=== PATIENT | male | born 1965 | race Caucasian/White ===

== ENCOUNTER 2024-11-13 08:50 | Outpatient (AMB) | payer OTHER, MEDICARE, MEDICAID, SELFPAY ==
--- NOTE | 2024-11-13 08:57 | A.OFFVIS_ITS ---
Vital Signs 11/13/24 09:00 Height 5 ft 5 in Weight 194 lb 0.108 oz BMI 32.3 BP 132/78 Blood Pressure Location Rt brachial Position Sitting Pulse 72 Pulse Source Pulse Oximeter Intake Visit Reasons: T2DM Intake Note: NEW Patient presents today to establish treatment for Type 2 Diabetes Mellitus: Last Diabetic eye exam was on: Has an appt on November Last Podiatry exam was on: Patient does not see a Outpatient Program Coordinator Most recent HbA1c: 7.2%, 09/16/2024 done at the PCP Random Glucose- 97 mg/dL, Today Dental Services Director Required: No Accompanied by: Self / Same As Patient Allergies No Known Allergies Allergy (Verified 11/13/24 08:58) HPI Comments Details: 59 year old male with diabetes presenting for consultation. Referred by DONNIE Medical history: hypertension, hyperlipidemia Diagnosed with diabetes around age 42 Last A1C 7.2% 09/16/24 Using one touch ultra2 -checking at least once daily fasting. 7 day average 155, 14 day average 166, 30 day average 170 Current medications: Glipizide xl 10 mg daily, metformin 1000mg twice daily Eye exam 12/04/2024 Does not see podiatry. Has podiatry appt Dec 05 Family history of diabetes: Aunt type 1. Maternal grandmother type 2 diabetes ROS CONSTITUTIONAL: Denies weight loss, fever and chills. HEENT: Denies changes in vision and hearing. RESPIRATORY: Denies SOB and cough. CV: Denies palpitations and CP GI: Denies abdominal pain, nausea, vomiting and diarrhea. : Nightime urination MSK: Denies new myalgia and joint pain. SKIN: Denies rash and pruritus. NEUROLOGICAL: Denies headache PSYCHIATRIC: Denies recent changes in mood. PHYSICAL EXAM: GENERAL: Alert and oriented x 3. NAD EYES: EOMI. Anicteric. HENT: Moist mucous membranes. No scleral icterus. No cervical lymphadenopathy. LUNGS: Clear to auscultation bilaterally. CARDIOVASCULAR: Regular rate and rhythm. No murmur. No JVD. ABDOMEN: Soft, non-tender +bs EXTREMITIES: No edema. Non-tender. SKIN: No rashes or lesions. Warm. NEUROLOGIC: No focal neurological deficits. CN II-XII grossly intact PSYCHIATRIC: Cooperative. Appropriate mood and affect Physical Exam Vital Signs: Last Vital Signs Pulse 72 11/13/24 09:00 BP 132/78 11/13/24 09:00 BMI result Body Mass Index 32.3 Results Reviewed Results Reviewed: Laboratory Last Values Glucose (Clinic) 97 mg/dL (60-115) 11/13/24 09:08 Assessment & Plan Assessment & Plan (1) Type 2 diabetes mellitus: Code(s): E11.9 - Type 2 diabetes mellitus without complications Category: Medical Qualifiers: Diabetes mellitus ad terminal makeup operator insulin use: without usp use Diabetes mellitus complication status: with hyperglycemia Qualified Code(s): E11.65 - Type 2 diabetes mellitus with hyperglycemia Plan: Discussed goal for fasting BG, A1C less than 7.0% Will increase glipizide from 10mg XL daily to 15mg XL daily Continue current metformin dosing Continue eye exams Upcoming pcp and podiatry appts per patient (2) Hypertension: Code(s): I10 - Essential (primary) hypertension Category: Medical Qualifiers: Hypertension type: primary hypertension Qualified Code(s): I10 - Essential (primary) hypertension Plan: well controlled on current medications Low salt diet. Efforts toward weight loss (3) Nocturia: Code(s): R35.1 - Nocturia Category: Medical Plan: start trial tamsulosin. Upcoming pcp Suspect may have HERO could consider sleep referral Medications: New glipizide ER 15 mg (3 x 5 mg) PO DAILY 270 tabs 3RF tamsulosin 0.4 mg PO BEDTIME 90 caps 3RF Coding Level of Care Code New Pt Level 4 (24336) Diagnoses Type 2 diabetes mellitus with hyperglycemia, without long-term current use of insulin E11.65 Diabetes mellitus usp insulin use: without usp use Diabetes mellitus complication status: with hyperglycemia Primary hypertension I10 Hypertension type: primary hypertension Nocturia R35.1 Time Spent (min) 50
[2024-11-13 09:00] VITALS: BP 132/78; PULSE 72; BMI 32.3
[2024-11-13 09:11] LABS: Glucose, Whole Blood 97 mg/dL (60-115)
== END 2024-11-13 09:37 | disposition home or self-care (01) ==
PROVIDERS: Visit Provider Internal Medicine
DX: E11.65 Type 2 diabetes mellitus with hyperglycemia (principal); I10 Essential (primary) hypertension; R35.1 Nocturia

== ENCOUNTER → 2024-11-13 08:50 | Outpatient (BNVA) | payer OTHER, MEDICARE, MEDICAID, SELFPAY | PROVIDERS: Visit Provider Internal Medicine | DX: E11.65 Type 2 diabetes mellitus with hyperglycemia (principal); I10 Essential (primary) hypertension; R35.1 Nocturia; Z79.84 Long term (current) use of oral hypoglycemic drugs | CPT/HCPCS: 82947 ==

== ENCOUNTER 2024-12-05 07:55 | Outpatient (REF) | payer MEDICARE, SELFPAY ==
--- OUTSIDE RECORDS SUMMARY | 2024-12-05 08:59 | XMS_ITS | Clinical Summary ---
Author Organization [address] Address [address] [place] [address] Phone Care Team Providers Care Tank Assembler Name Role Phone Kenny Osullivan MD Primary Care Provider [phone] Allergies No known active allergies Medications Medication [...] 1 (one) time each day. 06/25/2024 Active [employer] Ultra Test test strip USE TO TEST [...] mellitus), type 2, uncontrolled, with renal complications DEPARTMENT CHAIRPERSON (background diabetic retinopathy) 07/02/2014 Exotropia, left eye 07/02/2014 Glaucoma suspect of both eyes 07/02/2014 Left amblyopia 07/02/2014 Intellectual disability 10/02/2008 Essential hypertension, benign 04/19/2006 Pure hypercholesterolemia 04/19/2006 Encounters Date Type Department Care Team Description 11/04/2024 8:45 AM EST Office Visit Orthopedic Surgery [facility] [address] [place] [phone] John Sanders, DPM Dermatophytosis of nail (Primary Dx); Tinea pedis of both feet 10/25/2024 8:30 AM EST Office Visit Adult Medicine [address] [phone] Maine Johnston PA Routine history and physical examination of adult (Primary Dx); Essential hypertension, benign; Pure hypercholesterolemia; Diabetes mellitus due to underlying condition with stage 3 chronic kidney disease, without long-term current use of insulin, unspecified whether stage 3a or 3b CKD (CMS/HCC); Screening PSA (prostate specific antigen); Hyperlipidemia, unspecified hyperlipidemia type 09/13/2024 Telephone Adult Medicine [address] [phone] Kenny Osullivan MD Referral from Last 3 [...] for your loved ones. For example, children's author or elderly care for an older adult? [...] AM EDT Office Visit Orthopedic Surgery - [place] [address] [phone] John Sanders, DPM [address] [address] 04/25/2025 1:00 PM EDT Office Visit Adult Medicine [address] [phone] Kenny Osullivan MD [address] [place] [id number] Health Maintenance Due Date Last Done Comments [...] Urine Albumin Creatinine Ratio (08/28/2024) Pathologist [facility] Urine Albumin Creatinine Ratio abstracted Historical Provider MD [facility] E * Annual BMP Blood Test (08/28/2024) [facility] Annual BMP Blood Test abstracted Historical Provider MD [facility] E * (ABNORMAL) Hemoglobin A1c (08/28/2024) [facility] Hemoglobin A1C 7.2(A) 6.5 % Blood Venous blood specimen / Unknown Historical Provider LAB BLOOD ORDERAB LES * Lipid panel (08/28/2024) [facility] LDL/HDL Ratio 3 0 - 4 Triglycerides 59 0 - 150 mg/dL Cholesterol 159 0 - 200 mg/dL HDL 60 40 mg/dL LDL Cholesterol 88 0 - 100 mg/dL Blood Venous blood specimen / Unknown Historical Provider LAB BLOOD ORDERAB LES * Colonoscopy (08/01/2023) Pathologist [facility] Colonoscopy no interpretation , abstracted Anatomical Region Laterality Modality Other Historical Provider MD [facility] E * Hepatitis C Screening (02/17/2023) [facility] Hepatitis C Screening abstracted Historical Provider MD [facility] from Last 3 Months or Most Recently Relevant to Health Maintenance Care Teams Tank Assembler Relationship Specialty Start Date End Date Kenny Osullivan MD [address] [place] [id number] PCP - General 04/05/06
[2024-12-05 09:21] LABS: Hematocrit 41.8 % (42.0-52.0); Hemoglobin 14.3 g/dl (14.0-18.0); Mean Corpuscular HGB Conc 34.2 g/dl (31.0-36.0); Mean Corpuscular Hemoglobin 29.4 pg (27.0-33.0); Mean Corpuscular Volume 85.8 fL (80.0-98.0); Mean Platelet Volume 10.5 fL (9.4-12.4); Platelet Count 187 X10*3/uL (160-400); Red Blood Count 4.87 X10*6/uL (4.60-5.80)
[2024-12-05 09:51] LABS: Alanine Aminotransferase 27 U/L (0-40); Albumin Level 4.5 g/dL (3.5-5.0); Alkaline Phosphatase 54 U/L (39-117); Anion Gap 15 (12-20); Aspartate Amino Transferase 32 U/L (5-37); Bilirubin Total 0.7 mg/dL (0.0-1.0); Blood Urea Nitrogen 22 mg/dL (9-16); Calcium 9.1 mg/dL (8.4-10.2); Carbon Dioxide 27 mmol/L (22-29); Chloride 101 mmol/L (96-108); Cholesterol 156 mg/dL (<200); Estimated Glomerular Filt Rate > 60; Glucose Fasting 108 mg/dL (60-99); HDL Cholesterol 51 mg/dL (>40); LDL Cholesterol Calculated 92 mg/dL (<100); Potassium 4.6 mmol/L (3.3-5.1); Sodium 138 mmol/L (135-145); Total Protein 7.4 g/dL (6.5-8.0); Triglycerides 68 mg/dL (<150)
[2024-12-05 09:52] LABS: Creatinine Urine 108.28 mg/dL; Microalbum/Creatinine Ratio Ur 139.4 ug/mg cr (<30)
== END 2024-12-05 07:56 | disposition home or self-care (01) ==
LOC: HO.LAB 07:55
PROVIDERS: PCP Physician Assistant; Visit Provider Physician Assistant
DX: E11.22 Type 2 diabetes mellitus with diabetic chronic kidney disease (principal); I12.9 Hypertensive chronic kidney disease with stage 1 through stage 4 chronic kidney disease, or unspecified chronic kidney disease; N18.31 Chronic kidney disease, stage 3a; E11.65 Type 2 diabetes mellitus with hyperglycemia; R62.50 Unspecified lack of expected normal physiological development in childhood; R35.1 Nocturia; Z12.5 Encounter for screening for malignant neoplasm of prostate
CPT/HCPCS: 36415; 80053; 80061; 82043; 82570; 84153; 85027; 96127; 99202

== ENCOUNTER → 2024-12-05 07:55 | Outpatient (AMB) | payer MEDICARE, MEDICAID, SELFPAY ==
--- OUTSIDE RECORDS SUMMARY | 2024-12-05 07:58 | XMS_ITS | Clinical Summary ---
Author Organization [address] Address [address] [place] [address] Phone Care Team Providers Care Urology Surgeon Name Role Phone Kenny Osullivan MD Primary Care Provider [phone] Allergies No known active allergies Medications Medication Sig Dispensed Refills Start Date End Date Status naproxen (NAPROSYN) 500 mg tablet TAKE 1 TABLET BY MOUTH 2 TIMES DAILY NEEDED FOR PAIN. WITH MEALS 07/29/2024 Active miconazole nitrate 2 % aerosol,spray Apply 1 Applicator topically daily. 07/03/2024 Active ketoconazole (NIZORAL) 2 % cream Apply 30 mg topically 2 times daily for 360 days. 07/03/2024 Active clotrimazole (LOTRIMIN) 1 % cream Apply to skin and toenails daily for 12 weeks 07/03/2024 Active glipiZIDE (GLUCOTROL XL) 10 mg 24 hr tablet Take 1 tablet (10 mg total) by mouth 1 (one) time each day. 06/25/2024 Active Radius NetworksTouch Ultra Test test strip USE TO TEST BLOOD SUGAR 2 TO 3 TIMES DAILY 06/25/2024 Active triamcinolone acetonide 0.025 % lotion Apply 1 Applicator topically 2 times daily. Apply to rash daily for 6 weeks 04/27/2022 Active OneTouch Ultra2 Meter misc USE TO TEST BLOOD SUGAR DAILY 1 kit 10/07/2024 Active lovastatin (MEVACOR) 10 mg tablet TAKE 1 TABLET BY MOUTH EVERYDAY AT BEDTIME 90 tablet 1 10/15/2024 Active lisinopril-hydro CHLOROthiazide (PRINZIDE,ZESTOR ETIC) 20-25 mg per tablet TAKE 1 TABLET BY MOUTH EVERY DAY 90 tablet 1 11/08/2024 Active metFORMIN (GLUCOPHAGE) 1,000 mg tablet TAKE 1 TABLET BY MOUTH TWICE A DAY WITH FOOD 180 tablet 1 11/09/2024 Active lancets (OneTouch Delica Plus Lancet) 33 gauge USE TO TEST 3 TIMES DAILY 300 each 1 11/11/2024 Active metFORMIN (GLUCOPHAGE) 1,000 mg tablet Take 1 tablet (1,000 mg total) by mouth 2 (two) times a day with meals. 08/14/2024 5 Discontinued lisinopril-hydro CHLOROthiazide (PRINZIDE,ZESTOR ETIC) 20-25 mg per tablet Take 1 tablet by mouth 1 (one) time each day. 08/09/2024 5 Discontinued lancets (OneTouch Delica Plus Lancet) 33 gauge USE TO TEST 3 TIMES DAILY 04/18/2024 5 Discontinued Active Problems Problem Noted Date Diagnosed Date Type 2 diabetes mellitus wit h retinopathy, without long-term current use of insulin 02/17/2023 Microalbuminuria 02/17/2023 Diabetes mellitus due to und erlying condition with stage 3 chronic kidney disease, without long-term current use of insulin 02/17/2023 Type 2 diabetes mellitus wit h microalbuminuria, without long-term current use of insulin 02/17/2023 Stage 3a chronic kidney disease 04/22/2022 Known medical problems 07/29/2014 Overview (09/16/2024): DM (diabetes mellitus), type 2, uncontrolled, with renal complications [employer] SCIENTIST (background diabetic retinopathy) 07/02/2014 Exotropia, left eye 07/02/2014 Glaucoma suspect of both eyes 07/02/2014 Left amblyopia 07/02/2014 Intellectual disability 10/02/2008 Essential hypertension, benign 04/19/2006 Pure hypercholesterolemia 04/19/2006 Encounters Date Type Department Care Team Description 11/04/2024 8:45 AM EST Office Visit Orthopedic Surgery [facility] [address] [place] [address] [phone] John Sanders, DPM Dermatophytosis of nail (Primary Dx); Tinea pedis of both feet 10/25/2024 8:30 AM EST Office Visit Adult Medicine [address] [phone] Maine Johnston PA Routine history and physical examination of adult (Primary Dx); Essential hypertension, benign; Pure hypercholesterolemia; Diabetes mellitus due to underlying condition with stage 3 chronic kidney disease, without long-term current use of insulin, unspecified whether stage 3a or 3b CKD (CMS/HCC); Screening PSA (prostate specific antigen); Hyperlipidemia, unspecified hyperlipidemia type 09/13/2024 Telephone Adult Medicine [address] [phone] Kenny Osullivan MD Referral from Last 3 Months Immunizations Name Administration Dates Next Due Influenza trivalent, 0.5mL, preservative free (Fluarix; FluLaval; Fluzone) ages 6mo and older (Afluria) 3 years and older 08/08/2007,09/28/2006 Pfizer SARS-CoV-2 COVID-19, mRNA, LNP-S, preservative free 10/07/2021,02/16/2021,01/25/2021 Pneumococcal polysaccharide 23 valent (Pneumovax 23) 2yo and older 09/06/2017 Tdap Tetanus diptheria acell ular pertussis (Boostrix; Adacel) 7yo and older 12/07/2016 Zoster recombinant (Shingrix ) 19yo and older 11/28/2023,08/10/2023 Medical History Medical History Date Comments Type II or unspecified type diabetes mellitus without mention of complication, not stated as uncontrolled DX:Type II or unspecified ty pe diabetes mellitus without mention of complication, not stated as uncontrolled Essential hypertension, benign D X:Essential hypertension, benign Pure hypercholesterolemia DX:Pur e hypercholesterolemia Left amblyopia 07/02/2014 DX:Left amblyopi a Family History Medical History Relation Name Comments Diabetes Maternal Grandfather Breast cancer Mother Blindness Neg Hx Cataracts Neg Hx Glaucoma Neg Hx Macular degeneration Neg Hx Strabismus Neg Hx Relation Name Status Comments Maternal Grandfather Mother Social History Tobacco Use Types Packs/Day Years Used Date Smoking Tobacco: Never Smokeless Tobacco: Never Alcohol Use Standard Drinks/Week Comments Yes 0 (1 standard drink = 0.6 oz pur e alcohol) occasional Housing Instability Answer Date Recorde d Are you worried that in the next 2 months you may not have stable housing? No 10/25/2024 Food Access & Nutrition Answer Date Rec orded Do you have access to a vari ety of food including fruits and vegetables? Yes 10/25/2024 Access to Healthcare Answer Date Record ed Within the last 3 months, ho w many times did you visit the emergency department for your medical care? 0 10/25/2024 Health Literacy Answer Date Recorded How often do you need to hav e someone help you when you read instructions, pamphlets, or other written material from your doctor or pharmacy? Never 10/25/2024 Caregiver: How often do you need to have someone help you when you read instructions, pamphlets, or other written material from your doctor or pharmacy? Not on file 10/25/2024 Financial Risk Answer Date Recorded How hard is it for you to pa y for the very basics like food, housing, medical care, and air conditioning / heating? Not very hard 10/25/2024 Transportation Answer Date Recorded Has the lack of transportati on kept you from meetings, work, or from getting things needed for daily living? No Has the lack of transportati on kept you from medical appointments or from getting medications? No 10/25/2024 Social Isolation Answer Date Recorded How often do you feel lonely or isolated from th ose around you? Never 10/25/2024 Food Risk Answer Date Recorded Within the past 12 months we worried whether our food would run out before we got money to buy more. Never true 10/25/2024 Within the past 12 months th e food we bought just didn't last and we didn't have money to get more. Never true 10/25/2024 Dependent Care Answer Date Recorded Do you need help finding or paying for care for your loved ones. For example, children's service worker or elderly care for an older adult? No 10/25/2024 Education Answer Date Recorded Do you think completing more education or training, like finishing a GED, going to college, or learning a trade, would be helpful for you? No 10/25/2024 Employment and Income Answer Date Recor ded During the last four weeks, have you been actively looking for work? No 10/25/2024 Living Situation Answer Date Recorded What is your living situation? 1 12/26/2023 Sex and Gender Information Value Date Recorded Sex Assigned at Not on file Gender Identity Not on file Sexual Orientation Not on file Job Start Date Occupation Industry Not on file Not on file Not on file Obstetrics History Last Filed Vital Signs Vital Sign Reading Time Taken Comments Blood Pressure 128/76 10/25/2024 8:28 AM EST Pulse 86 10/25/2024 8:28 AM EST Temperature 36.6 ??C (97.8 ??F) 10/25/2024 8:28 AM ES T Respiratory Rate - - Oxygen Saturation 99% 10/25/2024 8:28 AM EST Inhaled Oxygen Concentration - - Weight 89.4 kg (197 lb) 11/04/2024 8:53 AM EST Height 165.1 cm (5' 5 ) 11/04/2024 8:53 AM EST Body Mass Index 32.78 11/04/2024 8:53 AM EST Plan of Treatment Upcoming Encounters Date Type Department Care Team (Late st Contact Info) Description 02/03/2025 9:15 AM EDT Office Visit Orthopedic Surgery - [place] [id number] [phone] John Sanders, DPM [address] [phone] 04/25/2025 1:00 PM EDT Office Visit Adult Medicine [address] [phone] Kenny Osullivan MD [address] [place] [phone] Health Maintenance Due Date Last Done Comments Diabetes: Annual Foot Exam 1977 Diabetes: Annual Retina Eye Exam 1977 Hepatitis B Vaccines (1 of 3 - 19+ 3-dose series) 1986 Pneumococcal Vaccine: Pediatrics (0 to 5 Years) and At-Risk Patients (6 to 64 Years) (2 of 2 - PCV) 09/06/2018 09/06/2017 Colorectal Cancer Screening: Stool Based Tests (FOBT/FIT) 10/08/2022 Medicare Annual Wellness Visit 02/18/2024 02/17/2023 COVID-19 Vaccine ( season) 2024 08/20/2022, 10/07/2021, 02/16/2021, Additional history exists Diabetes: Blood Sugar Control Test (HGBA1C) 02/26/2025 08/28/2024, 08/28/2024 Diabetes: Annual Urine Albumin-Creatinine Ratio (uACR) 08/28/2025 08/28/2024 Diabetes: Annual GFR (Glomerular Filtration Rate) 08/28/2025 08/28/2024, 08/28/2024 Hypertension/CHF/CAD Annual BMP Blood Test 08/28/2025 08/28/2024, 08/28/2024 Depression Screening 10/25/2025 10/25/2024 Social Influencers of Health Screening 10/25/2025 10/25/2024 DTaP,Tdap,and Td Vaccines (2 - Td or Tdap) 12/07/2026 12/07/2016 Cholesterol Screening (Lipid Panel) 08/28/2029 08/28/2024, 08/28/2024 Influenza Vaccine Discontinued 08/08/2007, 09/28/2006 Hepatitis C Screening Completed 02/17/2023 Colorectal Cancer Screening: Colonoscopy Discontinued 08/01/2023 Zoster Vaccines Completed 11/28/2023, 08/10/2023 HIB Vaccines Aged Out No longer eligi ble based on patient's age to complete this topic HIV Screening Discontinued HPV Vaccines Aged Out No longer eligi ble based on patient's age to complete this topic Hepatitis A Vaccines Aged Out No long er eligible based on patient's age to complete this topic IPV Vaccines Aged Out No longer eligi ble based on patient's age to complete this topic MMR Vaccines Aged Out No longer eligi ble based on patient's age to complete this topic Meningococcal ACWY Vaccine Aged Out N o longer eligible based on patient's age to complete this topic RSV Immunization Patients Under 20 months Aged Out No longer eligible based on patient's age to complete this topic Varicella Vaccines Aged Out No longer eligible based on patient's age to complete this topic Procedures Procedure Name Priority Date/Time Associated Diagnosis Comments HM URINE ALBUMIN CREATININE RATIO Routine 08/28/2024 ANNUAL BMP BLOOD TEST Routine 08/28/2024 HEMOGLOBIN A1C Routine 08/28/2024 LIPID PANEL Routine 08/28/2024 COLONOSCOPY Routine 08/01/2023 HEPATITIS C SCREENING Routine 02/17/2023 from Last 3 Months or Most Recently Relevant to Health Maintenance Results * Urine Albumin Creatinine Ratio (08/28/2024) Pathologist [facility] Urine Albumin Creatinine Ratio abstracted Historical Provider MD ISIS ELLINGTON E * Annual BMP Blood Test (08/28/2024) [facility] Annual BMP Blood Test abstracted Historical Provider MD ISIS ELLINGTON E * (ABNORMAL) Hemoglobin A1c (08/28/2024) [facility] Hemoglobin A1C 7.2(A) 6.5 % Blood Venous blood specimen / Unknown Historical Provider LAB BLOOD ORDERAB LES * Lipid panel (08/28/2024) [facility] LDL/HDL Ratio 3 0 - 4 Triglycerides 59 0 - 150 mg/dL Cholesterol 159 0 - 200 mg/dL HDL 60 40 mg/dL LDL Cholesterol 88 0 - 100 mg/dL Blood Venous blood specimen / Unknown Historical Provider LAB BLOOD ORDERAB LES * Colonoscopy (08/01/2023) Pathologist [facility] Colonoscopy no interpretation , abstracted Anatomical Region Laterality Modality Other Historical Provider MD ISIS ELLINGTON E * Hepatitis C Screening (02/17/2023) [facility] Hepatitis C Screening abstracted Historical Provider MD ISIS Andrade from Last 3 Months or Most Recently Relevant to Health Maintenance Care Teams Urology Surgeon Relationship Specialty Start Date End Date Kenny Osullivan MD [address] [place] [id number] PCP - General 04/05/06
--- OUTSIDE RECORDS SUMMARY | 2024-12-05 07:58 | XMS_ITS | Continuity of Care Document ---
Author Organization [facility] Address [address] [place] [phone]- Care Team Providers Care Residential Door Installer Name Role Phone Not on Staff, PCP Primary Care Physician Unavail able Encounter [facility] Date(s): 10/18/24 - 11/17/24 [facility] [address] [place] [phone] Encounter Type: Triage Patient Care team information Care Team Personnel Name: Not on Staff, PCP Position: [facility] Physician (General Medicine) Member Role: PCP
--- NOTE | 2024-12-05 08:08 | A.OFFPC_ITS ---
Vital Signs 12/05/24 08:10 Height 5 ft 4.96 in Weight 191 lb 4 oz BMI 31.9 BP 122/62 Blood Pressure Location Rt brachial Position Sitting Pulse 77 Pulse Source Pulse Oximeter Temp 96.9 F Temp Source Skin Pulse Oximetry (%) 99 Oxygen Delivery Method Room Air Intake Visit Reasons: Diabetes & High blood pressure, review MEDS Intake Note: Patient is a new patient here to establish care for DM, HTN, High cholesterol. Transferring care from Dr Osullivan ([facility]). Medical records have been requested and have not received. Valve Inserter Required: No [place]er Controlled Atmospheric Furnace: Not Required per policy Accompanied by: Self / Same As Patient Allergies No Known Allergies Allergy (Verified 12/05/24 08:24) Medication List - Last Reconciled 12/05/24 by Jairo Castro PA-C blood sugar diagnostic ([email or web address] Ultra Test strips) As directed blood-glucose meter ([employer] Ultra2 Meter) As directed clotrimazole 1% appl topical glipizide ER 15 mg (3 x 5 mg) PO DAILY ketoconazole 2% appl topical lancets ([employer] Delica Plus Lancet) As directed lisinopril-hydrochlorothiazide 20-25 mg 1 tab PO DAILY lovastatin 10 mg PO DAILY metformin 1,000 mg PO BID miconazole nitrate 2% (Athlete's Foot) sprays topical DAILY naproxen 500 mg PO BID tamsulosin 0.4 mg PO BEDTIME Tobacco use date assessed: 12/05/24 Dental Screening Dental Screen Date: 12/05/24 Did you have a dental visit in the last 12 months?: No Did you have a dental problem in the last 6 months where you did not have access to dental care?: No Was dental information given to patient?: No HPI Diabetes & High blood pressure, review MEDS HPI Details Patient is a 59 year male here today for a new patient visit. Previous PCP was at [place]. Patient has a past medical history significant for type 2 diabetes, CKD-3 hypertension, obesity and developmental delay. .. Type 2 diabetes with nephropathy: He has establish care with [place] [facility]. Most recent A1c was 7.2 done in his previous PCP office in August of 2024. He reports his sugars at has been better 80s to 100s. Sees and Eye doctor as well. Sees a Finishing Technician at [facility] .. Hypertension: Patient's blood pressure acceptable today in office. Continues on lisinopril hydrochlorothiazide with good effect. .. Hyperlipidemia: Continues on lovastatin with good effect on his hyperlipidemia. Goal LDL to remain below 100 .. Developmental delay: Reports he is disabled since grade school due to a developmental delay issue. No formal diagnosis has ever been given to him. .. [facility] Surgical History History of surgery on arm Family History (Updated 12/05/24 @ 08:27 by Jairo Castro PA-C) Father Alcoholism Social History (Updated 12/05/24 @ 08:27 by Jairo Castro PA-C) Housing: House Alcohol intake: current Alcohol intake frequency: holidays/special occasions only Patient Tobacco Use Status: Never used Tobacco e-Cigarette/Vaping Use: Never Used Second Hand Smoke Exposure: No service: No Current occupational status: disabled Cognitive needs: No Hearing needs: No Vision needs: Yes (Glasses) Questionnaire PHQ-9 Over the last 2 weeks, how often have you been bothered by any of the following problems? 1. Little interest or pleasure in doing things: several days 2. Feeling down, depressed, or hopeless: not at all 3. Trouble falling or staying asleep, or sleeping too much: not at all 4. Feeling tired or having little energy: not at all 5. Poor appetite or overeating: not at all 6. Feeling bad about yourself - or that you are a failure or have let yourself or your family down: not at all 7. Trouble concentrating on things, such as reading the newspaper or watching television: not at all 8. Moving or speaking so slowly that other people could have noticed. Or the opposite - being so fidgety or restless that you have been moving around a lot more than usual: not at all 9. Thoughts that you would be better off or of hurting yourself in some way: not at all Total score: 1 Depression Screening Interpretation: Negative Depression Screening Done: Yes 57014 - PHQ-9 Billing: Yes Source: Developed by Drs. Rah Dumont, Delma Angel, Jose Angel Syed and colleagues, with an educational tiffanie from [employer]. Thrive Questionnaire Date Thrive assessed: 12/05/24 I am a: Patient What is your living situation today?: I have a steady place to live Within the past 12 months, did the food you bought not last and you didn't have the money to get more?: I choose not to answer this question Within the past 12 months, did you worry whether your food would run out before you got money to buy more?: I choose not to answer this question Do you have trouble paying for medicines?: No Do you have trouble getting transportation to medical appointments?: No Do you have trouble paying your heating and electricity bill?: No Do you have trouble taking care of your child, family member or friend?: No Do you have trouble with day-to-day activities such as bathing, preparing meals, shopping, managing finances, etc.?: No Are you currently unemployed and looking for a job?: No Are you interested in more education?: No Please select the resources that you would like help with: None Currently or been in a relationship where the following occur: I choose not to a nswer THRIVE Score: 0 AUDIT C Alcohol Use Questionnaire (AUDIT-C) 1. How often do you have a drink containing alcohol?: Never Total Score: 0 CRIS-7 AMB Questionnaire CRIS-7 Date CRIS - 7 assessed: 12/05/24 Feeling nervous, anxious, or on edge: 0 = Not at all Not being able to stop or control worryin = Not at all Worrying too much about different things: 0 = Not at all Trouble relaxin = Not at all Being so restless that it is hard to sit still: 0 = Not at all Becoming easily annoyed or irritable: 0 = Not at all Feeling afraid as if something awful might happen: 0 = Not at all Total CRIS-7 score (0-4 normal; 5-9 mild; 10-14 moderate; 15-21 severe): 0 Source: Developed by Drs. Rah Dumont, Delma Angel, Jose Angel Syed and colleagues, with an educational tiffanie from [employer]. CRIS-7 Assessment Billing CRIS-7 Assessment Tool: CRIS-7 Assessment 31373 Review of Systems Const Denies headache(s) Eyes Denies loss of vision ENT Denies vertigo, Denies dizziness, Denies headache(s) and Denies sore throat Card Denies chest pain, Denies leg edema and Denies lightheadedness Resp Denies cough, Denies hemoptysis and Denies wheezing GI Denies abdominal pain, Denies melena, Denies constipation, Denies diarrhea and Denies vomiting Denies dysuria, Denies urinary frequency and Denies urinary urgency Musc Denies arthralgias, Denies joint swelling, Denies numbness and Denies tingling Neuro Denies Abnormal speech present, Denies behavioral changes, Denies vertigo, Denies dizziness, Denies headache(s), Denies loss of vision, Denies memory loss, Denies numbness and Denies tingling Psych Denies anxiety, Denies behavioral changes, Denies depression, Denies memory loss and Denies panic attacks Hollis/Lymph Denies easy bleeding and Denies easy bruising Aller/Immun Denies wheezing Physical exam (Primary Care) Vital Signs: Last Vital Signs Temp 96.9 F 12/05/24 08:10 Pulse 77 12/05/24 08:10 BP 122/62 12/05/24 08:10 Pulse Ox 99 12/05/24 08:10 Oxygen Delivery Method Room Air 12/05/24 08:10 BMI result Body Mass Index 31.9 BMI Assessment/Plan discussion: High BMI High, discussed plan: lifestyle, weight reduction, dietary and physical activity Tobacco/Smoking Status: Tobacco use Status Tobacco use date assessed 12/05/24 12/05/24 08:19 Patient Tobacco Use Status Never used Tobacco 12/05/24 08:27 e-Cigarette/Vaping Use Never Used 12/05/24 08:19 PHQ-9: PHQ-9 Score PHQ-9: Total score 1 12/05/24 08:35 Depression Screening Interpretation: Negative Thrive Assessment: Date of Thrive Assessment Date Thrive assessed 12/05/24 12/05/24 08:19 Currently or been in a relationship where the following occur: I choose not to answer Const General: healthy appearing, no acute distress, alert and awake Nutritional Appearance: well nourished Orientation/consciousness: oriented to person, oriented to place and oriented to time HENMT Ears: TM's normal bilaterally General nose exam: Normal nasal mucous membranes and turbinates present Eyes Conjunctivae: conjunctivae normal Sclerae: sclerae normal Pupils: Equal, round and reactive pupils present Neck Neck: Yes no lymphadenopathy and Yes no JVD Thyroid: Thyroid normal Carotids: no bruits Resp Effort & Inspection: normal respiratory effort and not tachypneic Auscultation: no crackles, no rales, no rhonchi and no wheezes Cardio Rate: regular rate Rhythm: regular rhythm Heart sounds: no murmurs and normal S1 and S2 GI Palpation (GI): Soft to palpation, nontender, no hepatomegaly and no splenomegal y Auscultation: normal bowel sounds Skin General skin exam: no rashes or lesions noted and dry skin Neuro General: oriented to person, oriented to place and oriented to time Cranial nerves: Yes Equal, round and reactive pupils present Speech: No Abnormal speech present Gait exam (Neuro): Normal gait present Motor exam (neuro): no tremor noted Extrem Right upper extremity: full ROM Left upper extremity: full ROM Right lower extremity: full ROM; no edema Left lower extremity: full ROM; no edema Psych Mental Status: mental status grossly normal Speech and movement: Normal speech and movement present Affect: normal affect Attitude: cooperative Thought process: Normal thought process present Coding Level of Care Code New Pt Level 4 (08867) Diagnoses Stage 3a chronic kidney disease N18.31 Chronic kidney disease stage 3 subtype: stage 3a (GFR 45-59) Type 2 diabetes mellitus with hyperglycemia, without long-term current use of insulin E11.65 Diabetes mellitus complication status: with hyperglycemia Diabetes mellitus marine oil terminal superintendent insulin use: without chcf use Primary hypertension I10 Hypertension type: primary hypertension Developmental delay, mild R62.50 Additional Codes CRIS-7 Assessment Billing - CRIS-7 Assessment Tool: CRIS-7 Assessment 00478 ([id number]) PHQ-9 - 60562 - PHQ-9 Billing: Yes ([id number]) Assessment & Plan Assessment & Plan (1) CKD (chronic kidney disease) stage 3, GFR 30-59 ml/min: Code(s): N18.30 - Chronic kidney disease, stage 3 unspecified Category: Medical Qualifiers: Chronic kidney disease stage 3 subtype: stage 3a (GFR 45-59) Qualified Code(s): N18.31 - Chronic kidney disease, stage 3a Plan: According to records patient has CKD stage 3 with creatinine around 1.4- 1.5. Will continue to follow renal function and microalbumin. (2) Type 2 diabetes mellitus: Code(s): E11.9 - Type 2 diabetes mellitus without complications Category: Medical Qualifiers: Diabetes mellitus complication status: with hyperglycemia Diabetes mellitus marine oil terminal superintendent insulin use: without chcf use Qualified Code(s): E11.65 - Type 2 diabetes mellitus with hyperglycemia Plan: Patient followed by [place] [facility]. Most recent A1c is 7.2. He reports his blood sugars have been better since he had made some med changes. Goal A1c is to be below 7.0. (3) Hypertension: Code(s): I10 - Essential (primary) hypertension Category: Medical Qualifiers: Hypertension type: primary hypertension Qualified Code(s): I10 - Essential (primary) hypertension Plan: Patient's blood pressure acceptable today in office. Will continue his current dose lisinopril hydrochlorothiazide with goal blood pressure to be below 140/90 (4) Developmental delay, mild: Code(s): R62.50 - Unspecified lack of expected normal physiological development in childhood Category: Medical Plan: Seems to have been born with a developmental delay which disabled him. No clear diagnosis has been made. Has been disabled since grade school. Orders: Orders Prostate Specific Antigen Scr 12/05/24 R35.1 - Nocturia, Z12.5 - Encounter for screening for malignant neoplasm of prostate Lipid Panel 12/05/24 E11.65 - Type 2 diabetes mellitus with hyperglycemia Microalbumin, Random (w Creat) 12/05/24 E11.65 - Type 2 diabetes mellitus with hyperglycemia Comprehensive [place]. Panel Fast 12/05/24 E11.65 - Type 2 diabetes mellitus with hyperglycemia Complete Blood Count no Diff 12/05/24 E11.65 - Type 2 diabetes mellitus with hyperglycemia Patient Instructions: Goal: A1c to remain below 7.0, LDL to be below 100 Barriers: Adherence to physical activity and healthy eating habits
== END | disposition home or self-care (01) ==
PROVIDERS: Visit Provider Physician Assistant

== ENCOUNTER 2024-12-18 09:23 | Outpatient (AMB) | payer OTHER, MEDICAID, SELFPAY ==
--- NOTE | 2024-12-18 09:25 | A.OFFVIS_ITS ---
Vital Signs 12/18/24 09:26 Height 5 ft 5 in Weight 196 lb 3.382 oz BMI 32.6 BP 116/78 Blood Pressure Location Rt brachial Position Sitting Pulse 80 Pulse Source Pulse Oximeter Intake Visit Reasons: diabetes A1C Intake Note: Patient presents today for a follow-up on Type 2 Diabetes Mellitus: Last Diabetic eye exam was on: 11/30/2024 Last Podiatry exam was on: Patient does not see a Yeast Tender Most recent HbA1c: 7.4%, 12/18/2024 Random Glucose- 127 mg/dL, Today Plastic Card Grader Cardroom Required: No Accompanied by: Self / Same As Patient Allergies No Known Allergies Allergy (Verified 12/18/24 09:27) Medication List - Last Reconciled 12/18/24 by Camila Queen MD blood sugar diagnostic ([employer] Ultra Test strips) As directed blood-glucose meter ([employer] Ultra2 Meter) As directed clotrimazole 1% appl topical glipizide ER 15 mg (3 x 5 mg) PO DAILY ketoconazole 2% appl topical lancets ([employer] Delica Plus Lancet) As directed lisinopril-hydrochlorothiazide 20-25 mg 1 tab PO DAILY lovastatin 10 mg PO DAILY metformin 1,000 mg PO BID miconazole nitrate 2% (Athlete's Foot) sprays topical DAILY naproxen 500 mg PO BID tamsulosin 0.4 mg PO BEDTIME HPI Comments Details: 59 year old male with diabetes presenting for follow up Medical history: hypertension, hyperlipidemia Diagnosed with diabetes around age 42 Last A1C 7.4 today. 7.2% 09/16/24 Using one touch ultra2 -checking at least once daily fasting. 90s-200 Current medications: Glipizide xl 15 mg daily (increased last month from 10mg daily) but was taking 5 TID and is missing a lot of lunch doses, metformin 1000mg twice daily Eye exam 12/04/2024 Following with podiatry Family history of diabetes: Aunt type 1. Maternal grandmother type 2 diabetes ROS CONSTITUTIONAL: Denies weight loss, fever and chills. HEENT: Denies changes in vision and hearing. RESPIRATORY: Denies SOB and cough. CV: Denies palpitations and CP GI: Denies abdominal pain, nausea, vomiting and diarrhea. : Nightime urination MSK: Denies new myalgia and joint pain. SKIN: Denies rash and pruritus. NEUROLOGICAL: Denies headache PSYCHIATRIC: Denies recent changes in mood. PHYSICAL EXAM: GENERAL: Alert and oriented x 3. NAD EYES: EOMI. Anicteric. HENT: Moist mucous membranes. No scleral icterus. No cervical lymphadenopathy. LUNGS: Clear to auscultation bilaterally. CARDIOVASCULAR: Regular rate and rhythm. No murmur. No JVD. ABDOMEN: Soft, non-tender +bs EXTREMITIES: No edema. Non-tender. SKIN: No rashes or lesions. Warm. NEUROLOGIC: No focal neurological deficits. CN II-XII grossly intact PSYCHIATRIC: Cooperative. Appropriate mood and affect [facility] Surgical History History of surgery on arm Family History Father Alcoholism Social History Housing: House Alcohol intake: current Alcohol intake frequency: holidays/special occasions only Patient Tobacco Use Status: Never used Tobacco e-Cigarette/Vaping Use: Never Used Second Hand Smoke Exposure: No service: No Current occupational status: disabled Cognitive needs: No Hearing needs: No Vision needs: Yes (Glasses) Physical Exam Vital Signs: Last Vital Signs Pulse 80 12/18/24 09:26 BP 116/78 12/18/24 09:26 BMI result Body Mass Index 32.6 Results AMB Hemoglobin A1c AMB Hemoglobin A1c 7.4 % Last Edit by SID Aguilera on 12/18/24 09:50 Assessment & Plan Assessment & Plan (1) Type 2 diabetes mellitus: Code(s): E11.9 - Type 2 diabetes mellitus without complications Category: Medical Qualifiers: Diabetes mellitus nursing home insulin use: without extermination supervisor use Diabetes mellitus complication status: with hyperglycemia Qualified Code(s): E11.65 - Type 2 diabetes mellitus with hyperglycemia Plan: Close to controlled. No hypoglycemia. Increase glipizide to 20mg daily. Discuss can take 2 tab of 10mg ER once daily or split and take with his metformin He will continue follow up with podiatry and eye exams and return here in 3 months for next A1C. Orders: Orders AMB Hemoglobin A1c Today E11.65 - Type 2 diabetes mellitus with hyperglycemia Medications: New glipizide ER 20 mg (2 x 10 mg) PO DAILY 180 tabs 3RF Discontinued glipizide ER Discontinued Reason: Doctor's Order 15 mg (3 x 5 mg) PO DAILY 270 tabs 3RF Coding Level of Care Code Est Pt Level 4 (41450) Diagnoses Type 2 diabetes mellitus with hyperglycemia, without long-term current use of insulin E11.65 Diabetes mellitus extermination supervisor insulin use: without nursing home use Diabetes mellitus complication status: with hyperglycemia
[2024-12-18 09:26] VITALS: BP 116/78; PULSE 80; BMI 32.6
[2024-12-18 09:39] LABS: Glucose, Whole Blood 127 mg/dL (60-115)
--- OUTSIDE RECORDS SUMMARY | 2024-12-18 09:39 | XMS_ITS | Clinical Summary ---
Author Organization [facility] [address] [place] [address] [place] [address] Phone Care Team Providers Care Tattoo And Body Artist Name Role Phone Kenny Osullivan MD Primary Care Provider [phone] Allergies No known active allergies Medications naproxen (NAPROSYN) 500 mg tablet TAKE 1 TABLET BY MOUTH 2 TIMES DAILY NEEDED FOR PAIN. WITH MEALS 4 Active miconazole nitrate 2 % aerosol,spray Apply 1 Applicator topically daily. 4 Active ketoconazole (NIZORAL) 2 % cream Apply 30 mg topically 2 times daily for 360 days. 4 06/28/20 25 Active clotrimazole (LOTRIMIN) 1 % cream Apply to skin and toenails daily for 12 weeks 4 Active glipiZIDE (GLUCOTROL XL) 10 mg 24 hr tablet Take 1 tablet (10 mg total) by mouth 1 (one) time each day. 4 Active OneTouch Ultra Test test strip USE TO TEST BLOOD SUGAR 2 TO 3 TIMES DAILY 4 Active triamcinolone acetonide 0.025 % lotion Apply 1 Applicator topically 2 times daily. Apply to rash daily for 6 weeks 2 Active OneTouch Ultra2 Meter misc USE TO TEST BLOOD SUGAR DAILY 1 kit 4 Active lovastatin (MEVACOR) 10 mg tablet TAKE 1 TABLET BY MOUTH EVERYDAY AT BEDTIME 90 tablet 1 4 Active lisinopril-hydr oCHLOROthiazide (PRINZIDE,ZESTO RETIC) 20-25 mg per tablet TAKE 1 TABLET BY MOUTH EVERY DAY 90 tablet 1 5 Active metFORMIN (GLUCOPHAGE) 1,000 mg tablet TAKE 1 TABLET BY MOUTH TWICE A DAY WITH FOOD 180 tablet 1 5 Active lancets (OneTouch Delica Plus Lancet) 33 gauge USE TO TEST 3 TIMES DAILY 300 each 1 5 Active Active Problems Problem Noted Date Diagnosed Date [...] mellitus), type 2, uncontrolled, with renal complications TURN OUT (background diabetic retinopathy) 07/02/2014 Exotropia, left eye 07/02/2014 Glaucoma suspect of both eyes 07/02/2014 Left amblyopia 07/02/2014 Intellectual disability 10/02/2008 Essential hypertension, benign 04/19/2006 Pure hypercholesterolemia 04/19/2006 Encounters Date Type Department Care Team Description 11/04/2024 8:45 AM EST Office Visit Orthopedic Surgery [facility] [address] [place] [phone] John Sanders, DPM Dermatophytosis of nail (Primary Dx); Tinea pedis of both feet 10/25/2024 8:30 AM EST Office Visit Adult Medicine [address] [phone] Maine Johnston PA Routine history and physical examination of adult (Primary Dx); Essential hypertension, benign; Pure hypercholesterolemia; Diabetes mellitus due to underlying condition with stage 3 chronic kidney disease, without long-term current use of insulin, unspecified whether stage 3a or 3b CKD (CMS/HCC); Screening PSA (prostate specific antigen); Hyperlipidemia, unspecified hyperlipidemia type from Last 3 Months Immunizations Name Administration [...] care for your loved ones. For example, child care provider or elderly care for an older adult? [...] Recorded Sex Assigned at Not on file Legal Sex Male 5:20 PM EST Gender Identity Not on file Sexual Orientation Not on file Obstetrics History Last Filed [...] AM EDT Office Visit Orthopedic Surgery - [place] [address] [address] John Sanders, DPM [address] [address] 04/25/2025 1:00 PM EDT Office Visit Adult Medicine [facility] [address] [place] [address] Kenny Osullivan MD [address] [place] [id number] Health Maintenance Due Date Last Done Comments Diabetes: Annual Foot Exam 1977 Diabetes: Annual Retina Eye Exam 1977 Hepatitis B Vaccines (1 of 3 - 19+ 3-dose series) 1986 Pneumococcal Vaccine: 50+ Years (2 of 2 - PCV) 09/06/2018 09/06/2017 Pneumococcal Vaccine: Pediatrics (0 to 5 Years) [...] patient's age to complete this topic Meningococcal B Vacine Aged Out No lo nger eligible based on patient's age to complete this topic RSV Immunization Patients Under 20 months Aged Out No longer eligible based on patient's age to complete this topic Varicella Vaccines Aged Out No longer eligible based on patient's age to complete this topic Procedures Procedure Name Priority Date/Time Associated Diagnosis Comments URINE ALBUMIN CREATININE RATIO Routine 08/28/2024 ANNUAL BMP BLOOD TEST Routine 08/28/2024 HEMOGLOBIN A1C Routine 08/28/2024 LIPID PANEL Routine 08/28/2024 COLONOSCOPY Routine 08/01/2023 HEPATITIS C SCREENING Routine 02/17/2023 from Last 3 Months or Most Recently Relevant to Health Maintenance Results * Urine Albumin Creatinine Ratio (08/28/2024) [facility] Urine Albumin Creatinine Ratio abstracted Result [facility] Provider HEALTH MAINTENANCE Final Result * Annual BMP Blood Test (08/28/2024) [facility] Annual BMP Blood Test abstracted Result [facility] Provider HEALTH MAINTENANCE Final Result * (ABNORMAL) Hemoglobin A1c (08/28/2024) [facility] Hemoglobin A1C 7.2(A) <=6.5 % Blood Venous blood specimen / Unknown Result [facility] Provider LAB BLOOD ORDERABLES Mariam l Result * Lipid panel (08/28/2024) [facility] LDL/HDL Ratio 3 0 - 4 Triglycerides 59 0 - 150 mg/dL Cholesterol 159 0 - 200 mg/dL HDL 60 >=40 mg/dL LDL Cholesterol 88 0 - 100 mg/dL Blood Venous blood specimen / Unknown Result [facility] Provider LAB BLOOD ORDERABLES Mariam l Result * Colonoscopy (08/01/2023) [facility] Colonoscopy no interpretation , abstracted Anatomical Region Laterality Modality Other Result [facility] Provider HEALTH MAINTENANCE Final Result * Hepatitis C Screening (02/17/2023) [facility] Hepatitis C Screening abstracted Result [facility] Provider HEALTH MAINTENANCE Final Result from Last 3 Months or Most Recently Relevant to Health Maintenance Insurance [place]ICAID - [place] UNITED [employer] MEDICARE Care Teams Tattoo And Body Artist Relationship Specialty Start Date End Date Kenny Osullivan MD [address] [place] [address] [phone] PCP - General 04/05/06
== END 2024-12-18 09:54 | disposition home or self-care (01) ==
PROVIDERS: PCP Physician Assistant; Visit Provider Internal Medicine
DX: E11.65 Type 2 diabetes mellitus with hyperglycemia (principal)

== ENCOUNTER → 2024-12-18 09:23 | Outpatient (BNVA) | payer OTHER, MEDICAID, SELFPAY | PROVIDERS: PCP Physician Assistant; Visit Provider Internal Medicine | DX: E11.65 Type 2 diabetes mellitus with hyperglycemia (principal); Z79.84 Long term (current) use of oral hypoglycemic drugs | CPT/HCPCS: 82947; 83036 ==

== ENCOUNTER 2025-03-05 07:58 | Outpatient (REF) | payer MEDICARE, MEDICAID, SELFPAY ==
--- OUTSIDE RECORDS SUMMARY | 2025-03-05 09:16 | XMS_ITS | Clinical Summary ---
Author Organization [facility] [address] [place] [address] [place] [phone] Phone Care Team Providers Care Instrumentation Manager Name Role Phone Kenny Osullivan MD Primary Care Provider [phone] Allergies No known active allergies Medications naproxen [...] 6 weeks 2 Active OneTouch Ultra2 [facility] [place] [place] USE TO TEST BLOOD SUGAR DAILY 1 [...] retinopathy, without long-term current use of insulin ([facility] V24, [facility] V28) 02/17/2023 Microalbuminuria 02/17/2023 Diabetes mellitus due to und erlying condition with stage 3 chronic kidney disease, without long-term current use of insulin ([facility] V24, [facility] V28) 02/17/2023 Type 2 diabetes mellitus wit h microalbuminuria, without long-term current use of insulin ([facility] V24, [facility] V28) 02/17/2023 Stage 3a chronic kidney disease ([facility] V24, [facility] V28) 04/22/2022 Known medical problems 07/29/2014 Overview (09/16/2024): DM (diabetes mellitus), type 2, uncontrolled, with renal complications WELLNESS NURSE RN (background diabetic ret inopathy) ([facility] V24, [facility] V28) 07/02/2014 Exotropia, left eye 07/02/2014 Glaucoma suspect of both eyes 07/02/2014 Left amblyopia 07/02/2014 Intellectual disability 10/02/2008 Essential hypertension, benign 04/19/2006 Pure hypercholesterolemia 04/19/2006 Encounters Date Type Department Care Team Description 02/03/2025 9:15 AM EDT Office Visit Orthopedic Surgery - [address] [address] John Sanders, DPM Dermatophytosis of [...] care for your loved ones. For example, director maternal child or elderly care for an older adult? [...] 1:00 PM EDT Office Visit Adult Medicine [facility] [address] [place] [address] Kenny Osullivan MD [address] [place] [address] 05/12/2025 9:00 AM EDT Office Visit Orthopedic Surgery - [place] [address] [address] John Sanders, DPM [address] [address] 08/19/2025 1:30 PM EDT Consult Nephrology - [facility] [address] [place] [phone] Sanya Drummond MD [address] [place] [address] Health Maintenance Due Date Last Done Comments [...] Results * Urine Albumin Creatinine Ratio (08/28/2024) [facility] Urine Albumin Creatinine Ratio abstracted Result [facility] Provider HEALTH MAINTENANCE Final Result * Annual BMP Blood Test (08/28/2024) [facility] Annual BMP Blood Test abstracted Result [facility] Provider HEALTH MAINTENANCE Final Result * (ABNORMAL) Hemoglobin A1c (08/28/2024) [facility] Hemoglobin A1C 7.2(A) <=6.5 % Blood Venous blood specimen / Unknown Result [facility] Provider LAB BLOOD ORDERABLES Mariam l Result * Lipid panel (08/28/2024) [facility] LDL/HDL Ratio 3 0 - 4 Triglycerides 59 0 - 150 mg/dL Cholesterol 159 0 - 200 mg/dL HDL 60 >=40 mg/dL LDL Cholesterol 88 0 - 100 mg/dL Blood Venous blood specimen / Unknown Result [facility] Provider LAB BLOOD ORDERABLES Mariam l Result * Colonoscopy (08/01/2023) [facility] Colonoscopy no interpretation , abstracted Anatomical Region Laterality Modality Other Result [facility] Provider HEALTH MAINTENANCE Final Result * Hepatitis C Screening (02/17/2023) [facility] Hepatitis C Screening abstracted Result [facility] Donald GRACIA HEALTH MAINTENANCE Final Result from Last 3 Months or Most Recently Relevant to Health Maintenance Insurance [place]ICAID - [place] [employer] MEDICARE Care Teams Instrumentation Manager Relationship Specialty Start Date End Date Kenny Osullivan MD [address] [place] [phone] PCP - General 04/05/06
[2025-03-05 09:20] LABS: Urine Cytology See Pathology rpt
[2025-03-05 09:38] LABS: Appearance Urine Clear; Color Urine Yellow; Glucose Urine UA Negative (Negative); Leukocyte Esterase Urine Negative (Negative); Nitrite Urine Negative (Negative); UMIC TRIGGER UACC YES; Urine Blood Negative (Negative); Urine Ketones Trace mg/dL (Negative); Urine Protein 30 (1+) mg/dL (Neg-Trace)
[2025-03-05 09:41] LABS: Bacteria Urine None Seen (None Seen); Hyaline Casts Urine 0-2 /LPF (0-2); RBC Urine 0-2 /HPF (0-2); Squamous Epithelial Cell Urine 0-2 /HPF (0-2); WBC Urine 0-5 /HPF (0-5)
== END 2025-03-05 07:59 | disposition home or self-care (01) ==
LOC: HO.LAB 07:58
PROVIDERS: PCP Physician Assistant; Visit Provider Physician Assistant
DX: E11.65 Type 2 diabetes mellitus with hyperglycemia (principal); E11.22 Type 2 diabetes mellitus with diabetic chronic kidney disease; I12.9 Hypertensive chronic kidney disease with stage 1 through stage 4 chronic kidney disease, or unspecified chronic kidney disease; N18.31 Chronic kidney disease, stage 3a; R31.29 Other microscopic hematuria; R30.0 Dysuria; Z79.899 Other long term (current) drug therapy
CPT/HCPCS: 81001; 83036; 88112; 99212

== ENCOUNTER 2025-03-05 07:58 | Outpatient (AMB) | payer MEDICARE, MEDICAID, SELFPAY ==
--- OUTSIDE RECORDS SUMMARY | 2025-03-05 08:01 | XMS_ITS | Clinical Summary ---
Author Organization [facility] [address] [place] [address] [place] [phone] Phone Care Team Providers Care Dynamicist Name Role Phone Kenny Osullivan MD Primary Care Provider [phone] Allergies No known active allergies Medications naproxen [...] 1 (one) time each day. 4 Active triamcinolone acetonide 0.025 % lotion Apply 1 Applicator topically 2 times daily. Apply to rash daily for 6 weeks 2 Active OneTouch Ultra2 Meter [facility] USE TO TEST BLOOD SUGAR DAILY 1 kit 4 Active lisinopril-hydr oCHLOROthiazide (PRINZIDE,ZESTO RETIC) 20-25 mg per tablet TAKE 1 TABLET BY MOUTH EVERY DAY 90 tablet 1 5 Active metFORMIN (GLUCOPHAGE) 1,000 mg tablet TAKE 1 TABLET BY MOUTH TWICE A DAY WITH FOOD 180 tablet 1 5 Active lancets (OneTouch Delica Plus Lancet) 33 gauge USE TO TEST 3 TIMES DAILY 300 each 1 5 Active OneTouch Ultra Test test strip USE TO TEST BLOOD SUGAR 2 TO 3 TIMES DAILY 300 strip 1 5 Active lovastatin (MEVACOR) 10 mg tablet TAKE 1 TABLET BY MOUTH EVERYDAY AT BEDTIME 90 tablet 1 5 Active Active Problems Problem Noted Date Diagnosed Date Type 2 diabetes mellitus wit h retinopathy, without long-term current use of insulin ([facility], [facility] V28) 02/17/2023 Microalbuminuria 02/17/2023 Diabetes mellitus due to und erlying condition with stage 3 chronic kidney disease, without long-term current use of insulin ([facility]24, [facility] V28) 02/17/2023 Type 2 diabetes mellitus wit h microalbuminuria, without long-term current use of insulin ([facility]24, [facility] V28) 02/17/2023 Stage 3a chronic kidney disease ([facility] V24, [facility] V28) 04/22/2022 Known medical problems 07/29/2014 Overview (09/16/2024): DM (diabetes mellitus), type 2, uncontrolled, with renal complications 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) ([facility]24, [facility] V28) 07/02/2014 Exotropia, left eye 07/02/2014 Glaucoma suspect of both eyes 07/02/2014 Left amblyopia 07/02/2014 Intellectual disability 10/02/2008 Essential hypertension, benign 04/19/2006 Pure hypercholesterolemia 04/19/2006 Encounters Date Type Department Care Team Description 02/03/2025 9:15 AM EDT Office Visit Orthopedic Surgery - [address] [phone] John Sanders, DPM Dermatophytosis of nail (Primary Dx); Tinea pedis of both feet from Last 3 Months Immunizations Name Administration [...] care for your loved ones. For example, early childhood special educator or elderly care for an older adult? [...] Care Team (Late st Contact Info) Description 04/25/2025 1:00 PM EDT Office Visit Adult Medicine [facility] [address] [place] [address] Kenny Osullivan MD [address] [place] [address] 05/12/2025 9:00 AM EDT Office Visit Orthopedic Surgery - [place] [address] [phone] John Sanders, DPM [address] [address] 08/19/2025 1:30 PM EDT Consult Nephrology - [facility] [address] [place] [phone] Sanya Drummond MD [address] [place] [address] Health Maintenance Due Date Last Done Comments [...] age to complete this topic Meningococcal B Vaccine Aged Out No l onger eligible based on patient's age to complete [...] Results * Urine Albumin Creatinine Ratio (08/28/2024) [facility] Urine Albumin Creatinine Ratio abstracted Result [facility] Provider HEALTH MAINTENANCE Final Result * Annual BMP Blood Test (08/28/2024) [facility] Annual BMP Blood Test abstracted Result [facility] Provider HEALTH MAINTENANCE Final Result * (ABNORMAL) Hemoglobin A1c (08/28/2024) [facility] Hemoglobin A1C 7.2(A) <=6.5 % Blood Venous blood specimen / Unknown Result [facility] Provider LAB BLOOD ORDERABLES Mariam l Result * Lipid panel (08/28/2024) [facility] LDL/HDL Ratio 3 0 - 4 Triglycerides 59 0 - 150 mg/dL Cholesterol 159 0 - 200 mg/dL HDL 60 >=40 mg/dL LDL Cholesterol 88 0 - 100 mg/dL Blood Venous blood specimen / Unknown Result [facility] Provider LAB BLOOD ORDERABLES Mariam l Result * Colonoscopy (08/01/2023) [facility] Colonoscopy no interpretation , abstracted Anatomical Region Laterality Modality Other Result [facility] Provider HEALTH MAINTENANCE Final Result * Hepatitis C Screening (02/17/2023) [facility] Hepatitis C Screening abstracted Result [facility] HEALTH MAINTENANCE Final Result from Last 3 Months or Most Recently Relevant to Health Maintenance Insurance [place] - [place] [employer] MEDICARE Care Teams Dynamicist Relationship Specialty Start Date End Date Kenny Osullivan MD [address] [place] [phone] PCP - General 04/05/06
--- NOTE | 2025-03-05 08:12 | MHC.PC.OV ---
Vital Signs 03/05/25 08:15 Height 5 ft 5 in Weight 190 lb 2 oz BMI 31.6 BP 122/74 Blood Pressure Location Rt brachial Position Sitting Pulse 79 Pulse Source Pulse Oximeter Temp 97.1 F Temp Source Temporal Artery Scan Pulse Oximetry (%) 98 Oxygen Delivery Method Room Air Intake Visit Reasons: f/u DMII Intake Note: Patient is here to follow up on DM. Filler Shredding Machine Loader Required: No Senior Product Analyst: Not Required per policy Accompanied by: Self / Same As Patient Allergies No Known Allergies Allergy (Verified 03/05/25 08:25) Medication List - Last Reconciled 03/05/25 by Jairo Castro PA-C blood-glucose meter (flexReceiptsuch Ultra2 Meter) As directed clotrimazole 1% appl topical glipizide ER 20 mg (2 x 10 mg) PO DAILY ketoconazole 2% appl topical lancets (SophonoTouch Delica Plus Lancet) As directed lisinopril-hydrochlorothiazide 20-25 mg 1 tab PO DAILY lovastatin 10 mg PO DAILY metformin 1,000 mg PO BID miconazole nitrate 2% (Athlete's Foot) sprays topical DAILY naproxen 500 mg PO BID PRN 90 days OneTouch Ultra Test (blood sugar diagnostic) once daily NS tamsulosin 0.4 mg PO BEDTIME Tobacco use date assessed: 03/05/25 Dental Screening Dental Screen Date: 12/05/24 HPI f/u DMII HPI Details Patient is a 59 year male here today for follow-up visit. Patient has a past medical history significant for type 2 diabetes, CKD-3 hypertension, obesity and developmental delay. microscopic Hematuria : He reports that his previous PCP office he was told he had microscopic hematuria was referred to Urology. Has a appointment at urology office in [place] though would like to establish care and a closer office. PLAN: Will send for bladder and in renal ultrasounds and urine cytology to start the evaluation the hematuria .. Type 2 diabetes with nephropathy: He has establish care with [facility]. Today's A1c is 6.8 from 7.4 He reports his sugars at has been better 80s to 100s. Sees and Eye doctor as well. 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 Hypertension: Patient's blood pressure acceptable today in office. Continues on lisinopril hydrochlorothiazide with good effect. .. Hyperlipidemia: Continues on lovastatin with good effect on his hyperlipidemia. Goal LDL to remain below 100 .. Developmental delay: Reports he is disabled since grade school due to a developmental delay issue. No formal diagnosis has ever been given to him. Laboratory Tests 12/05/24 12/05/24 12/18/24 08:55 09:01 09:34 Glucose (Clinic) 127 H Fasting Glucose 108 H Hgb A1c (Clinic) Cholesterol 156 LDL Cholesterol, C alc 92 Urine Microalbumin 151.0 12/18/24 09:37 Glucose (Clinic) Fasting Glucose Hgb A1c (Clinic) 7.4 H Cholesterol LDL Cholesterol, C alc [facility]rine [facility] History History of surgery on arm Family History Father Alcoholism Social History Housing: House Alcohol intake: current Alcohol intake frequency: holidays/special occasions only Patient Tobacco Use Status: Never used Tobacco e-Cigarette/Vaping Use: Never Used Second Hand Smoke Exposure: No service: No Current occupational status: disabled Cognitive needs: No Hearing needs: No Vision needs: Yes (Glasses) Questionnaire Thrive Questionnaire Date Thrive assessed: 12/05/24 I am a: Patient What is your living situation today?: I have a steady place to live Within the past 12 months, did the food you bought not last and you didn't have the money to get more?: I choose not to answer this question Within the past 12 months, did you worry whether your food would run out before you got money to buy more?: I choose not to answer this question Do you have trouble paying for medicines?: No Do you have trouble getting transportation to medical appointments?: No Do you have trouble paying your heating and electricity bill?: No Do you have trouble taking care of your child, family member or friend?: No Do you have trouble with day-to-day activities such as bathing, preparing meals, shopping, managing finances, etc.?: No Are you currently unemployed and looking for a job?: No Are you interested in more education?: No Please select the resources that you would like help with: None Currently or been in a relationship where the following occur: I choose not to answer THRIVE Score: 0 AUDIT C Alcohol Use Questionnaire (AUDIT-C) 2. How many drinks containing alcohol do you have on a typical day when you are drinking?: 1 or 2 3. How often do you have six or more drinks on one occasion?: Never Total Score: 0 CRIS-7 AMB Questionnaire CRIS-7 Date CRIS - 7 assessed: 12/05/24 Source: Developed by Drs. Rah Dumont, Delma Angel, Jose Angel Syed and colleagues, with an educational tiffanie from [employer]. Review of Systems Const Denies headache(s) Eyes Denies loss of vision ENT Denies vertigo, Denies dizziness, Denies headache(s) and Denies sore throat Card Denies chest pain, Denies leg edema and Denies lightheadedness Resp Denies cough, Denies hemoptysis and Denies wheezing GI Denies abdominal pain, Denies melena, Denies constipation, Denies diarrhea and Denies vomiting Denies dysuria, Denies urinary frequency and Denies urinary urgency Musc Denies arthralgias, Denies joint swelling, Denies numbness and Denies tingling Neuro Denies Abnormal speech present, Denies behavioral changes, Denies vertigo, Denies dizziness, Denies headache(s), Denies loss of vision, Denies memory loss, Denies numbness and Denies tingling Psych Denies anxiety, Denies behavioral changes, Denies depression, Denies memory loss and Denies panic attacks Hollis/Lymph Denies easy bleeding and Denies easy bruising Aller/Immun Denies wheezing Physical exam (Primary Care) Vital Signs: Last Vital Signs Temp 97.1 F 03/05/25 08:15 Pulse 79 03/05/25 08:15 BP 122/74 03/05/25 08:15 Pulse Ox 98 03/05/25 08:15 Oxygen Delivery Method Room Air 03/05/25 08:15 BMI result Body Mass Index 31.6 Tobacco/Smoking Status: Tobacco use Status Tobacco use date assessed 03/05/25 03/05/25 08:22 Patient Tobacco Use Status Never used Tobacco 03/05/25 08:22 e-Cigarette/Vaping Use Never Used 03/05/25 08:22 Thrive Assessment: Date of Thrive Assessment Date Thrive assessed 12/05/24 03/05/25 08:22 Currently or been in a relationship where the following occur: I choose not to answer Const General: healthy appearing, no acute distress, alert and awake Nutritional Appearance: well nourished Orientation/consciousness: oriented to person, oriented to place and oriented to time HENMT Ears: TM's normal bilaterally General nose exam: Normal nasal mucous membranes and turbinates present Eyes Conjunctivae: conjunctivae normal Sclerae: sclerae normal Pupils: Equal, round and reactive pupils present Neck Neck: Yes no lymphadenopathy and Yes no JVD Thyroid: Thyroid normal Carotids: no bruits Resp Effort & Inspection: normal respiratory effort and not tachypneic Auscultation: no crackles, no rales, no rhonchi and no wheezes Cardio Rate: regular rate Rhythm: regular rhythm Heart sounds: no murmurs and normal S1 and S2 GI Palpation (GI): Soft to palpation, nontender, no hepatomegaly and no splenomegaly Auscultation: normal bowel sounds Skin General skin exam: no rashes or lesions noted and dry skin Neuro General: oriented to person, oriented to place and oriented to time Cranial nerves: Yes Equal, round and reactive pupils present Speech: No Abnormal speech present Gait exam (Neuro): Normal gait present Motor exam (neuro): no tremor noted Extrem Right upper extremity: full ROM Left upper extremity: full ROM Right lower extremity: full ROM; no edema Left lower extremity: full ROM; no edema Psych Mental Status: mental status grossly normal Speech and movement: Normal speech and movement present Affect: normal affect Attitude: cooperative Thought process: Normal thought process present Results AMB Hemoglobin A1c AMB Hemoglobin A1c 6.8 % Last Edit by SID Reyes on 03/05/25 08:26 Results Reviewed Results Reviewed: Laboratory Last Values Hgb A1c (Clinic) 6.8 % (4.0-6.0) H 03/05/25 08:12 Coding Level of Care Code Est Pt Level 4 (56625) Diagnoses Stage 3a chronic kidney disease N18.31 Chronic kidney disease stage 3 subtype: stage 3a (GFR 45-59) Type 2 diabetes mellitus with hyperglycemia, without long-term current use of insulin E11.65 Diabetes mellitus complication status: with hyperglycemia Diabetes mellitus supervisor intermediates insulin use: without skilled nursing use Primary hypertension I10 Hypertension type: primary hypertension Microscopic hematuria R31.29 Assessment & Plan Assessment & Plan (1) CKD (chronic kidney disease) stage 3, GFR 30-59 ml/min: Code(s): N18.30 - Chronic kidney disease, stage 3 unspecified Category: Medical Qualifiers: Chronic kidney disease stage 3 subtype: stage 3a (GFR 45-59) Qualified Code(s): N18.31 - Chronic kidney disease, stage 3a Plan: According to records patient has CKD stage 3 with creatinine around 1.4- 1.5. Will continue to follow renal function and microalbumin. (2) Type 2 diabetes mellitus: Code(s): E11.9 - Type 2 diabetes mellitus without complications Category: Medical Qualifiers: Diabetes mellitus complication status: with hyperglycemia Diabetes mellitus supervisor intermediates insulin use: without supervisor intermediates use Qualified Code(s): E11.65 - Type 2 diabetes mellitus with hyperglycemia Plan: Patient followed by [facility]. Today's A1c is 6.8, will continue his current dose of antihyperglycemic medication. He reports his blood sugars have been better since he had made some med changes. Goal A1c is to be below 7.0. (3) Hypertension: Code(s): I10 - Essential (primary) hypertension Category: Medical Qualifiers: Hypertension type: primary hypertension Qualified Code(s): I10 - Essential (primary) hypertension Plan: Patient's blood pressure acceptable today in office. Will continue his current dose lisinopril hydrochlorothiazide with goal blood pressure to be below 140/90 (4) Microscopic hematuria: Code(s): R31.29 - Other microscopic hematuria Category: Medical Plan: As per HPI patient reports having microscopic hematuria and has upcoming appointment in May of 2025 with Urology. He would like to see a more local urologist. Will start workup for evaluation with bladder ultrasound and renal ultrasounds and a urine cytology. Otherwise denies any urinary symptoms such as urinary frequency or evelia gross hematuria Orders: Orders AMB Hemoglobin A1c Today E11.65 - Type 2 diabetes mellitus with hyperglycemia Urine Cytology Today R31.29 - Other microscopic hematuria UA CC w/rflx Micro + Cult Today R30.0 - Dysuria, R31.29 - Other microscopic hematuria US renal BI Today R31.29 - Other microscopic hematuria US bladder Today R31.29 - Other microscopic hematuria Complete Blood Count no Diff 5 Months E11.65 - Type 2 diabetes mellitus with hyperglycemia Comprehensive [place]. Panel Fast 5 Months E11.65 - Type 2 diabetes mellitus with hyperglycemia Hemoglobin A1c 5 Months E11.65 - Type 2 diabetes mellitus with hyperglycemia Lipid Panel 5 Months N18.31 - Chronic kidney disease, stage 3a Referrals Urology Referral R31.29 - Other microscopic hematuria
[2025-03-05 08:15] VITALS: BP 122/74; PULSE 79; TEMP 36.2; O2SAT 98; BMI 31.6
== END 2025-03-05 08:39 | disposition home or self-care (01) ==
LOC: HO.HMCH 07:59
PROVIDERS: Visit Provider Physician Assistant
DX: N18.31 Chronic kidney disease, stage 3a (principal); E11.65 Type 2 diabetes mellitus with hyperglycemia; I10 Essential (primary) hypertension; R31.29 Other microscopic hematuria

== ENCOUNTER 2025-03-19 08:54 | Outpatient (AMB) | payer OTHER, MEDICAID, SELFPAY ==
[2025-03-19 09:02] VITALS: BP 128/82; PULSE 75; O2SAT 100; BMI 32.6
--- NOTE | 2025-03-19 09:02 | A.OFFVIS_ITS ---
Vital Signs 03/19/25 09:02 Height 5 ft 5 in Weight 196 lb 3.382 oz BMI 32.6 BP 128/82 Blood Pressure Location Rt brachial Position Sitting Pulse 75 Pulse Source Pulse Oximeter Pulse Oximetry (%) 100 Oxygen Delivery Method Room Air Intake Visit Reasons: DM Intake Note: Patient presents today for a follow-up on Type 2 Diabetes Mellitus: Last Diabetic eye exam was on: 11/30/2024 Last Podiatry exam was on: Patient does not see a Plasterer Spray Gun Most recent HbA1c: 6.8%, 03/05/2025 Random Glucose- 130 mg/dL, Today Allergies No Known Allergies Allergy (Verified 03/05/25 08:25) HPI Comments Details: 59 year old male with diabetes presenting for follow up Medical history: hypertension, hyperlipidemia Diagnosed with diabetes around age 42 Last A1C 6.8% on 03/05/25 from 7.4 11/2024, 7.2% 09/16/24 Using one touch ultra2 -checking at least once daily fasting. [id number] Current medications: Glipizide xl 20 mg daily (increased last month from 10mg daily),metformin 1000mg twice daily Eye exam 12/04/2024 Following with podiatry Family history of diabetes: Aunt type 1. Maternal grandmother type 2 diabetes ROS CONSTITUTIONAL: Denies weight loss, fever and chills. HEENT: Denies changes in vision and hearing. RESPIRATORY: Denies SOB and cough. CV: Denies palpitations and CP GI: Denies abdominal pain, nausea, vomiting and diarrhea. : Nightime urination MSK: Denies new myalgia and joint pain. SKIN: Denies rash and pruritus. NEUROLOGICAL: Denies headache PSYCHIATRIC: Denies recent changes in mood. PHYSICAL EXAM: GENERAL: Alert and oriented x 3. NAD EYES: EOMI. Anicteric. HENT: Moist mucous membranes. No scleral icterus. No cervical lymphadenopathy. LUNGS: Clear to auscultation bilaterally. CARDIOVASCULAR: Regular rate and rhythm. No murmur. No JVD. ABDOMEN: Soft, non-tender +bs EXTREMITIES: No edema. Non-tender. SKIN: No rashes or lesions. Warm. NEUROLOGIC: No focal neurological deficits. CN II-XII grossly intact PSYCHIATRIC: Cooperative. Appropriate mood and affect [facility] Surgical History History of surgery on arm Family History Father Alcoholism Social History Housing: House Alcohol intake: current Alcohol intake frequency: holidays/special occasions only Patient Tobacco Use Status: Never used Tobacco e-Cigarette/Vaping Use: Never Used Second Hand Smoke Exposure: No service: No Current occupational status: disabled Cognitive needs: No Hearing needs: No Vision needs: Yes (Glasses) Physical Exam Vital Signs: Last Vital Signs Pulse 75 03/19/25 09:02 BP 128/82 03/19/25 09:02 Pulse Ox 100 03/19/25 09:02 Oxygen Delivery Method Room Air 03/19/25 09:02 BMI result Body Mass Index 32.6 Results Reviewed Results Reviewed: Laboratory Last Values Glucose (Clinic) 130 mg/dL (60-115) H 03/19/25 09:06 Assessment & Plan Assessment & Plan (1) Proteinuria due to type 2 diabetes mellitus: Code(s): E11.29 - Type 2 diabetes mellitus with other diabetic kidney complication; R80.9 - Proteinuria, unspecified Category: Medical (2) Type 2 diabetes mellitus: Code(s): E11.9 - Type 2 diabetes mellitus without complications Category: Medical Qualifiers: Diabetes mellitus shelter insulin use: without intermediate accountant use Diabetes mellitus complication status: with hyperglycemia Qualified Code(s): E11.65 - Type 2 diabetes mellitus with hyperglycemia Plan Controlled on current medications He has been running high for the past two weeks and says he generally has less dietary discretion over the summer. He is in the obese range As such we discussed adding a small dose of rybelsus which is agreed to He will return in 3 months or sooner as needed Medications: New Rybelsus (semaglutide) 3 mg PO DAILY 90 days 90 tabs 3RF NS Coding Level of Care Code Est Pt Level 4 (58163) Diagnoses Proteinuria due to type 2 diabetes mellitus E11.29; R80.9 Type 2 diabetes mellitus with hyperglycemia, without long-term current use of insulin E11.65 Diabetes mellitus intermediate accountant insulin use: without intermediate accountant use Diabetes mellitus complication status: with hyperglycemia
[2025-03-19 09:09] LABS: Glucose, Whole Blood 130 mg/dL (60-115)
== END 2025-03-19 09:21 | disposition home or self-care (01) ==
LOC: HO.ENCR 08:55
PROVIDERS: PCP Physician Assistant; Visit Provider Internal Medicine
DX: E11.29 Type 2 diabetes mellitus with other diabetic kidney complication (principal); R80.9 Proteinuria, unspecified; E11.65 Type 2 diabetes mellitus with hyperglycemia

== ENCOUNTER → 2025-03-19 08:54 | Outpatient (BNVA) | payer MEDICARE, MEDICAID, SELFPAY | PROVIDERS: PCP Physician Assistant; Visit Provider Internal Medicine | DX: E11.29 Type 2 diabetes mellitus with other diabetic kidney complication (principal); E11.65 Type 2 diabetes mellitus with hyperglycemia; R80.9 Proteinuria, unspecified | CPT/HCPCS: 82947 ==

== ENCOUNTER 2025-03-26 13:28 | Outpatient (REF) | payer OTHER, MEDICAID, SELFPAY ==
--- NOTE | ~2025-03-26 | US_ITS ---
EXAMINATION: US RETROPERITONEAL COMPLETE (RENAL) CLINICAL INFORMATION: Microscopic hematuria.. COMPARISON: None available. TECHNIQUE: Real-time imaging of the kidneys and bladder. FINDINGS: RIGHT KIDNEY: 10 x 6 x 6 cm (SAG x AP x TRV). Normal echotexture. Normal renal cortical thickness. No hydronephrosis. There is a 2 cm exophytic anechoic lesion, midportion. There is a 0.7 cm exophytic anechoic lesion, midportion. There is a 1.4 cm exophytic anechoic lesion in the lower pole. No septations or nodular components were flow on color Doppler interrogation throughout the is a lesions. LEFT KIDNEY: 10 x 6 x 4 cm (SAG x AP x TRV). Normal echotexture. Normal renal cortical thickness. No hydronephrosis. There is a 1 cm partially calcified anechoic lesion in the midportion. There is a 1.2 cm exophytic anechoic lesion in the lower pole. No septations or flow on color Doppler interrogation. BLADDER: Fluid-filled. Bilateral ureteral jets are demonstrated. Prevoid bladder volume is 340 mL. Postvoid bladder volume is 100 mL. The prostate gland measures 6 x 5 x 5 cm and volume: 64 cc. US/US retroperitoneal comp IMPRESSION: No hydronephrosis. Bosniak type I and type II cysts, bilaterally 100 cc residual urine in a post void image. Probable benign prostate hyperplasia.. Electronically signed by: Chaparro Hays MD 03/26/2025 03:55 PM EDT RP
--- OUTSIDE RECORDS SUMMARY | 2025-03-26 14:22 | XMS_ITS | Clinical Summary ---
Author Organization [facility] [address] [place] [address] [place] [phone] Phone Care Team Providers Care Cigar Packer And Shader Name Role Phone Kenny Osullivan MD Primary Care Provider [phone] Allergies No known active allergies Medications naproxen [...] 6 weeks 2 Active OneTouch Ultra2 [facility] [place] USE TO TEST BLOOD SUGAR DAILY 1 [...] retinopathy, without long-term current use of insulin ([facility] V24, [facility] V28) 02/17/2023 Microalbuminuria 02/17/2023 Diabetes mellitus due to und erlying condition with stage 3 chronic kidney disease, without long-term current use of insulin ([facility] V24, [facility] V28) 02/17/2023 Type 2 diabetes mellitus wit h microalbuminuria, without long-term current use of insulin ([facility] V24, [facility] V28) 02/17/2023 Stage 3a chronic kidney disease ([facility] V24, [facility] V28) 04/22/2022 Known medical problems 07/29/2014 Overview (09/16/2024): DM (diabetes mellitus), type 2, uncontrolled, with renal complications 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 For example, child care nurse or elderly care for an older adult? [...] 1:00 PM EDT Office Visit Adult Medicine [facility] [address] [place] [address] Kenny Osullivan MD [address] [place] [address] 05/12/2025 9:00 AM EDT Office Visit Orthopedic Surgery - [place] [address] [address] John Sanders, DPM [address] [address] 08/12/2025 1:30 PM EDT Consult Nephrology - [facility] [address] [place] [phone] Sanya Drummond MD [address] [place] [address] Health Maintenance Due Date Last Done Comments [...] Results * Urine Albumin Creatinine Ratio (08/28/2024) [facility] Urine Albumin Creatinine Ratio abstracted Result [facility] Provider HEALTH MAINTENANCE Final Result * Annual BMP Blood Test (08/28/2024) [facility] Annual BMP Blood Test abstracted Result [facility] Provider HEALTH MAINTENANCE Final Result * (ABNORMAL) Hemoglobin A1c (08/28/2024) [facility] Hemoglobin A1C 7.2(A) <=6.5 % Blood Venous blood specimen / Unknown Result [facility] Provider LAB BLOOD ORDERABLES Mariam l Result * Lipid panel (08/28/2024) [facility] LDL/HDL Ratio 3 0 - 4 Triglycerides 59 0 - 150 mg/dL Cholesterol 159 0 - 200 mg/dL HDL 60 >=40 mg/dL LDL Cholesterol 88 0 - 100 mg/dL Blood Venous blood specimen / Unknown Result [facility] Provider LAB BLOOD ORDERABLES Mariam l Result * Colonoscopy (08/01/2023) [facility] Colonoscopy no interpretation , abstracted Anatomical Region Laterality Modality Other Result [facility] Provider HEALTH MAINTENANCE Final Result * Hepatitis C Screening (02/17/2023) [facility] Hepatitis C Screening abstracted Result [facility] Donald GR[facility] HEALTH MAINTENANCE Final Result from Last 3 Months or Most Recently Relevant to Health Maintenance Insurance [place]ICAID - [place] [employer] MEDICARE Care Teams Cigar Packer And Shader Relationship Specialty Start Date End Date Kenny Osullivan MD [address] [place] [phone] PCP - General 04/05/06
== END 2025-03-26 13:29 | disposition home or self-care (01) ==
LOC: HO.US 13:28
PROVIDERS: PCP Physician Assistant; Visit Provider Physician Assistant
DX: R31.29 Other microscopic hematuria (principal)
CPT/HCPCS: 76770

== ENCOUNTER → 2025-03-26 13:31 | Outpatient (BNV) | payer OTHER, MEDICAID, SELFPAY | PROVIDERS: PCP Physician Assistant; Visit Provider Radiology Diagnostic Radiology | DX: N28.1 Cyst of kidney, acquired (principal) | CPT/HCPCS: 76770 ==

== ENCOUNTER 2025-04-08 13:48 | Outpatient (REF) | payer MEDICARE, SELFPAY ==
[2025-04-08 14:57] LABS: Appearance Urine Clear; Color Urine Yellow; Glucose Urine UA Negative (Negative); Leukocyte Esterase Urine Negative (Negative); Nitrite Urine Negative (Negative); PH 5.5 (5.0-9.0); UMIC TRIGGER UACC YES; Urine Blood Negative (Negative); Urine Ketones Trace mg/dL (Negative); Urine Protein 30 (1+) mg/dL (Neg-Trace)
[2025-04-08 15:02] LABS: Bacteria Urine None Seen (None Seen); Hyaline Casts Urine 0-2 /LPF (0-2); RBC Urine 0-2 /HPF (0-2); Squamous Epithelial Cell Urine 0-2 /HPF (0-2); WBC Urine 0-5 /HPF (0-5)
[2025-04-08 15:29] LABS: Creatinine Urine 131.82 mg/dL; Total Protein Urine Random 28 mg/dL (<12)
[2025-04-08 15:36] LABS: Anion Gap 13 (12-20); Blood Urea Nitrogen 19 mg/dL (9-16); Calcium 9.3 mg/dL (8.4-10.2); Carbon Dioxide 29 mmol/L (22-29); Chloride 99 mmol/L (96-108); Estimated Glomerular Filt Rate 52; Glucose Random 58 mg/dL (60-115); Sodium 137 mmol/L (135-145)
== END 2025-04-08 13:49 | disposition home or self-care (01) ==
LOC: HO.LAB 13:48
PROVIDERS: PCP Physician Assistant; Referring Provider Physician Assistant; Visit Provider Internal Medicine Hypertension Specialist
DX: E11.29 Type 2 diabetes mellitus with other diabetic kidney complication (principal); R80.9 Proteinuria, unspecified
CPT/HCPCS: 36415; 80048; 81001; 82570; 84156; 99202

== ENCOUNTER 2025-04-08 13:48 | Outpatient (AMB) | payer MEDICARE, MEDICAID, SELFPAY ==
[2025-04-08 13:50] VITALS: BP 122/78; PULSE 95; O2SAT 99; BMI 31.3
--- NOTE | 2025-04-08 13:50 | HO.NEPHOV_ITS ---
Vital Signs 04/08/25 13:50 Height 5 ft 5 in Weight 188 lb BMI 31.3 BP 122/78 Blood Pressure Location Lt brachial Position Sitting Pulse 95 Pulse Source Pulse Oximeter Pulse Oximetry (%) 99 Oxygen Delivery Method Room Air Intake Visit Reasons: INP:Proteinuria/Type 2 DM Conf Novelties Sales Representative Required: No Accompanied by: Self / Same As Patient Allergies No Known Allergies Allergy (Verified 04/08/25 13:52) Medication List - Last Reconciled 04/08/25 by Taurus Beckwith MD aspirin 81 mg PO DAILY blood-glucose meter (Rock ContentTouch Ultra2 Meter) As directed clotrimazole 1% appl topical glipizide ER 20 mg (2 x 10 mg) PO DAILY ketoconazole 2% appl topical lancets (Rock ContentTouch Delica Plus Lancet) As directed lisinopril-hydrochlorothiazide 20-25 mg 1 tab PO DAILY lovastatin 10 mg PO DAILY metformin 1,000 mg PO BID miconazole nitrate 2% (Athlete's Foot) sprays topical DAILY naproxen 500 mg PO BID PRN 90 days OneTouch Ultra Test (blood sugar diagnostic) once daily NS semaglutide (Rybelsus) 7 mg PO DAILY tamsulosin 0.4 mg PO BEDTIME HPI Comments Details: 60-year-old male referred for proteinuria and concerns regarding chronic kidney disease likely due to diabetic nephropathy. He has had diabetes mellitus, type 2 for over 30 years. He last had renal blood work done in November, without specific lab values provided during the conversation. Patient describes his diabetes as being generally well-managed, though specific blood glucose or HbA1c values were not discussed. He was informed about potential proteinuria due to long-term diabetes affecting the renal function. h/o Microhematuria. Seen by urology The patient is on medication for hyperlipidemia and essential hypertension. He takes naproxen twice daily for chronic pain, despite attempting to reduce dosage because of symptom recurrence. He leads a non-working lifestyle with a lifelong history of disability. He denies symptoms such as trouble with urination or respiratory complaints and has no significant renal family history. He reports minimal alcohol consumption and resides with his mother. [facility] Surgical History History of surgery on arm Family History Father Alcoholism Social History Housing: House Alcohol intake: current Alcohol intake frequency: holidays/special occasions only Patient Tobacco Use Status: Never used Tobacco e-Cigarette/Vaping Use: Never Used Second Hand Smoke Exposure: No service: No Current occupational status: disabled Cognitive needs: No Hearing needs: No Vision needs: Yes (Glasses) Review of Systems Const Denies fever(s) and Denies weight loss Card Denies chest pain Resp Denies cough and Denies hemoptysis GI Denies abdominal pain, Denies diarrhea and Denies nausea Musc Denies back pain Neuro Denies focal weakness Physical Exam Vital Signs: Last Vital Signs Pulse 95 04/08/25 13:50 BP 122/78 04/08/25 13:50 Pulse Ox 99 04/08/25 13:50 Oxygen Delivery Method Room Air 04/08/25 13:50 BMI result Body Mass Index 31.3 Const General: comfortable Nutritional Appearance: well nourished Orientation/consciousness: patient oriented x3 HEENT Head: No normal to inspection Mouth: moist mucous membranes Neck Neck: Yes supple and Yes no JVD Resp Auscultation: clear to auscultation bilaterally and no rales Cardio Jugular venous distension: no JVD Palpation: no palpable S3 and no palpable S4 Heart sounds: no rubs GI Palpation (GI): Soft to palpation and nontender Percussion: No Fluid wave present General: Yes no CVA tenderness Back/Spine/Pelvis Back: no CVA tenderness Skin General skin exam: no rashes or lesions noted Neuro General: patient oriented x3 Extrem General: Yes no pedal edema and No clubbing Results Reviewed Nephrology Results: Urine Protein 30 (1+) mg/dL (Neg-Trace) H 03/05/25 Assessment & Plan Assessment & Plan (1) Proteinuria due to type 2 diabetes mellitus: Code(s): E11.29 - Type 2 diabetes mellitus with other diabetic kidney complication; R80.9 - Proteinuria, unspecified Category: Medical Plan: Proteinuria most likely due to underlying DM- Diabetic kidney disease Creatinine has been stable as of Nov 2024 He probably has hyperfilteration in a setting of DM Plan Check Renal panel along with Urine Pro: Cr Keep ACEi for renal protection Maintain A1C < 7% and BP < 130/80 Low salt diet Weight loss Avoid nephrotoxins including NSAIDS Further work up will be based on the outcome of the baseline investigations Orders: Orders Basic Metabolic Panel Today E11.29 - Type 2 diabetes mellitus with other diabetic kidney complication, R80.9 - Proteinuria, unspecified Total Protein Urine Random Today E11.29 - Type 2 diabetes mellitus with other diabetic kidney complication, R80.9 - Proteinuria, unspecified UA and rflx microscopic Today E11. - Type 2 diabetes mellitus with other diabetic kidney complication, R80.9 - Proteinuria, unspecified Creatinine Urine Today E11.29 - Type 2 diabetes mellitus with other diabetic kidney complication, R80.9 - Proteinuria, unspecified Coding Level of Care Code New Pt Level 4 (56435) Diagnoses Proteinuria due to type 2 diabetes mellitus E11; R80.9
--- OUTSIDE RECORDS SUMMARY | 2025-04-08 16:23 | XMS_ITS | Clinical Summary ---
Author Organization [facility] [address] [place] [address] [place] [phone] Phone Care Team Providers Care Gauge And Weigh Machine Operator Name Role Phone Kenny Osullivan MD Primary Care Provider [phone] Allergies No known active allergies Medications naproxen [...] 6 weeks 2 Active OneTouch Ultra2 [facility] [place] USE TO TEST BLOOD SUGAR DAILY 1 [...] retinopathy, without long-term current use of insulin ([facility] V24, [facility] V28) 02/17/2023 Microalbuminuria 02/17/2023 Diabetes mellitus due to und erlying condition with stage 3 chronic kidney disease, without long-term current use of insulin ([facility] V24, [facility] V28) 02/17/2023 Type 2 diabetes mellitus wit h microalbuminuria, without long-term current use of insulin ([facility] V24, [facility] V28) 02/17/2023 Stage 3a chronic kidney disease ([facility] V24, [facility] V28) 04/22/2022 Known medical problems 07/29/2014 Overview (09/16/2024): DM (diabetes mellitus), type 2, uncontrolled, with renal complications COLOR BLENDER (background diabetic ret inopathy) ([facility] V24, [facility] V28) 07/02/2014 Exotropia, left eye 07/02/2014 Glaucoma suspect of both eyes 07/02/2014 Left amblyopia 07/02/2014 Intellectual disability 10/02/2008 Essential hypertension, benign 04/19/2006 Pure hypercholesterolemia 04/19/2006 Encounters Date Type Department Care Team Description 02/03/2025 9:15 AM EDT Office Visit Orthopedic Surgery - [address] [address] John Sanders, DPM Dermatophytosis of [...] your loved ones. For example, child care associate teacher or elderly care for an older adult? [...] 1:00 PM EDT Office Visit Adult Medicine [facility] [address] [place] [address] Kenny Osullivan MD [address] [place] [address] 05/12/2025 9:00 AM EDT Office Visit Orthopedic Surgery - [place] [address] [address] John Sanders, DPM [address] [address] 08/12/2025 1:30 PM EDT Consult Nephrology - [facility] [address] [place] [phone] Sanya Drummond MD [address] [place] [address] Health Maintenance Due Date Last Done Comments [...] Results * Urine Albumin Creatinine Ratio (08/28/2024) [facility] Urine Albumin Creatinine Ratio abstracted Result [facility] Provider HEALTH MAINTENANCE Final Result * Annual BMP Blood Test (08/28/2024) [facility] Annual BMP Blood Test abstracted Result [...] ORDERABLES Mariam l Result * Colonoscopy (08/01/2023) [facility] Colonoscopy no interpretation , abstracted Anatomical Region Laterality Modality Other Result [facility] Provider HEALTH MAINTENANCE Final Result * Hepatitis C Screening (02/17/2023) [facility] Hepatitis C Screening abstracted Result [facility] Donald GRACIA HEALTH MAINTENANCE Final Result from Last 3 Months or Most Recently Relevant to Health Maintenance Insurance [place] - [place] [employer] MEDICARE Care Teams Gauge And Weigh Machine Operator Relationship Specialty Start Date End Date Kenny Osullivan MD [address] [place] [phone] PCP - General 04/05/06
== END 2025-04-08 14:04 | disposition home or self-care (01) ==
LOC: HO.HKA 13:49
PROVIDERS: PCP Physician Assistant; Referring Provider Physician Assistant; Visit Provider Internal Medicine Hypertension Specialist
DX: E11.29 Type 2 diabetes mellitus with other diabetic kidney complication (principal); R80.9 Proteinuria, unspecified
CPT/HCPCS: 99204

== ENCOUNTER 2025-04-24 10:06 | Outpatient (AMB) | payer MEDICARE, MEDICAID, SELFPAY ==
[2025-04-24 10:09] VITALS: BP 116/72; PULSE 90; O2SAT 99; BMI 32.1
--- NOTE | 2025-04-24 10:09 | HO.NEPHOV_ITS ---
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 Required: No Accompanied by: Self / Same As Patient Allergies No Known Allergies Allergy (Verified 04/24/25 10:11) Medication List - Last Reconciled 04/24/25 by Taurus Beckwith MD aspirin 81 mg PO DAILY blood-glucose meter (AxcelerTouch Ultra2 Meter) As directed clotrimazole 1% appl topical glipizide ER 20 mg (2 x 10 mg) PO DAILY ketoconazole 2% appl topical lancets (AxcelerTouch Delica Plus Lancet) As directed lisinopril-hydrochlorothiazide 20-25 mg 1 tab PO DAILY lovastatin 10 mg PO DAILY metformin 1,000 mg PO BID miconazole nitrate 2% (Athlete's Foot) sprays topical DAILY naproxen 500 mg PO BID PRN 90 days OneTouch Ultra Test (blood sugar diagnostic) once daily NS semaglutide (Rybelsus) 7 mg PO DAILY tamsulosin 0.4 mg PO BEDTIME HPI Comments Details: 60-year-old male referred for proteinuria and concerns regarding chronic kidney disease likely due to diabetic nephropathy. He has had diabetes mellitus, type 2 for over 30 years. He last had renal blood work done in November, without specific lab values provided during the conversation. Patient describes his diabetes as being generally well-managed, though specific blood glucose or HbA1c values were not discussed. He was informed about potential proteinuria due to long-term diabetes affecting the renal function. h/o Microhematuria. Seen by urology The patient is on medication for hyperlipidemia and essential hypertension. He takes naproxen twice daily for chronic pain, despite attempting to reduce dosage because of symptom recurrence. He leads a non-working lifestyle with a lifelong history of disability. He denies symptoms such as trouble with urination or respiratory complaints and has no significant renal family history. He reports minimal alcohol consumption and resides with his mother. 04/24/25 The patient is a 60-year-old male presenting for management of decreased kidney function and associated medication review. The patient has been experiencing tendinitis, which necessitates the use of naproxen twice daily to manage symptoms in the arm, shoulder, and neck. The patient reports that reducing the naproxen dosage exacerbates the tendinitis symptoms. The patient's kidney function has decreased to 52%, as indicated by recent blood tests The patient is currently taking lisinopril with a diuretic for blood pressure management. [facility], [facility] Surgical History History of surgery on arm Family History Father Alcoholism Social History Housing: House Alcohol intake: current Alcohol intake frequency: holidays/special occasions only Patient Tobacco Use Status: Never used Tobacco e-Cigarette/Vaping Use: Never Used Second Hand Smoke Exposure: No service: No Current occupational status: disabled Cognitive needs: No Hearing needs: No Vision needs: Yes (Glasses) Physical Exam Vital Signs: Last Vital Signs Pulse 90 04/24/25 10:09 BP 116/72 04/24/25 10:09 Pulse Ox 99 04/24/25 10:09 Oxygen Delivery Method Room Air 04/24/25 10:09 BMI result Body Mass Index 32.1 Const General: comfortable Nutritional Appearance: well nourished Orientation/consciousness: patient oriented x3 HEENT Head: No normal to inspection Mouth: moist mucous membranes Neck Neck: Yes supple and Yes no JVD Resp Auscultation: clear to auscultation bilaterally and no rales Cardio Jugular venous distension: no JVD Palpation: no palpable S3 and no palpable S4 Heart sounds: no rubs GI Palpation (GI): Soft to palpation and nontender Percussion: No Fluid wave present General: Yes no CVA tenderness Back/Spine/Pelvis Back: no CVA tenderness Skin General skin exam: no rashes or lesions noted Neuro General: patient oriented x3 Extrem General: Yes no pedal edema and No clubbing Results Reviewed Results Reviewed: Mar 2025: Urine Pro: Cr 0.21 Nephrology Results: Sodium, (135-145) 137 mmol/L 04/08/25 Potassium, (3.3-5.1) 4.0 mmol/L 04/08/25 Chloride, (96-108) 99 mmol/L 04/08/25 Carbon Dioxide, (22-29) 29 mmol/L 04/08/25 BUN, (9-16) 19 mg/dL H 04/08/25 Creatinine, (0.5-1.4) 1.39 mg/dL 04/08/25 Calcium, (8.4-10.2) 9.3 mg/dL 04/08/25 Urine Protein, (Neg-Trace) 30 (1+) mg/dL H 04/08/25 Urine Creatinine 131.82 mg/dL 04/08/25 Assessment & Plan Assessment & Plan (1) Proteinuria due to type 2 diabetes mellitus: Code(s): E11.29 - Type 2 diabetes mellitus with other diabetic kidney complication; R80.9 - Proteinuria, unspecified Category: Medical (2) CKD (chronic kidney disease) stage 3, GFR 30-59 ml/min: Code(s): N18.30 - Chronic kidney disease, stage 3 unspecified Category: Medical Qualifiers: Chronic kidney disease stage 3 subtype: stage 3a (GFR 45-59) Qualified Code(s): N18.31 - Chronic kidney disease, stage 3a Plan Proteinuria most likely due to underlying DM- Diabetic kidney disease Creatinine has been stable as of Nov 2024 He probably has hyperfilteration in a setting of DM Minimal Urine Pro: Cr i s 0.21 Mild bump in creatinine 1.4 Most likely due to combination of ACEi/HCTZ and NSAIDS Advised to stop Naproxen Will DC HCTZ since BP is relatively low Keep ACEi for renal protection Recheck renal panel in 4- 6 weeks Increase PO fludi intake Maintain A1C < 7% and BP < 130/80 Low salt diet Weight loss Orders: Orders Basic Metabolic Panel 6 Weeks N18.31 - Chronic kidney disease, stage 3a Medications: New lisinopril 20 mg PO DAILY 30 tabs 1RF Coding Level of Care Code Est Pt Level 4 (08160) Diagnoses Proteinuria due to type 2 diabetes mellitus E11.29; R80.9 Stage 3a chronic kidney disease N18.31 Chronic kidney disease stage 3 subtype: stage 3a (GFR 45-59)
--- OUTSIDE RECORDS SUMMARY | 2025-04-24 11:38 | XMS_ITS | Clinical Summary ---
Author Organization [facility] [address] [place] [address] [place] [phone] Phone Care Team Providers Care Sports Doctor Name Role Phone Kenny Osullivan MD Primary Care Provider [phone] Allergies No known active allergies Medications naproxen [...] 6 weeks [address] [facility] USE TO TEST [...] retinopathy, without long-term current use of insulin ([facility] V24, [facility] V28) 02/17/2023 Microalbuminuria 02/17/2023 Diabetes mellitus due to und erlying condition with stage 3 chronic kidney disease, without long-term current use of insulin ([facility] V24, [facility] V28) 02/17/2023 Type 2 diabetes mellitus wit h microalbuminuria, without long-term current use of insulin ([facility] V24, [facility] V28) 02/17/2023 Stage 3a chronic kidney disease ([facility] V24, [facility] V28) 04/22/2022 Known medical problems 07/29/2014 Overview (09/16/2024): DM (diabetes mellitus), type 2, uncontrolled, with renal complications 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 (background diabetic ret inopathy) ([facility] V24, [facility] V28) 07/02/2014 Exotropia, left eye 07/02/2014 Glaucoma suspect of both eyes 07/02/2014 Left amblyopia 07/02/2014 Intellectual disability 10/02/2008 Essential hypertension, benign 04/19/2006 Pure hypercholesterolemia 04/19/2006 Encounters Date Type Department Care Team Description 02/03/2025 9:15 AM EDT Office Visit Orthopedic Surgery - [address] [phone] John Sanders, DPM Dermatophytosis of [...] 86 10/25/2024 8:28 AM EST Temperature 36.6 C (97.8 F) 10/25/2024 8:28 AM EST Respiratory Rate - - Oxygen Saturation 99% 10/25/2024 8:28 AM EST Inhaled Oxygen Concentration - - Weight 89.4 kg (197 lb) 11/04/2024 8:53 AM EST Height 165.1 cm (5' 5 ) 11/04/2024 8:53 AM EST Body Mass Index 32.78 11/04/2024 8:53 AM EST Plan of Treatment Upcoming Encounters Date Type Department Care Team (Late st Contact Info) Description 05/12/2025 9:00 AM EDT Office Visit Orthopedic Surgery - [place] [address] [facility] [address] [place] [phone] John Sanders, DPM [address] [facility] [address] [place] [address] 08/12/2025 1:30 PM EDT Consult Nephrology - [place] [address] [place] [phone] Sanya Drummond MD [address] [place] [phone] Health Maintenance Due Date Last Done Comments [...] Results * Urine Albumin Creatinine Ratio (08/28/2024) Urine Albumin Creatinine Ratio abstracted Historical Provider MD HEALTH MAINTENANCE Final Result * Annual BMP Blood Test (08/28/2024) Pathologist [facility] Annual BMP Blood Test abstracted Result [facility] Provider HEALTH MAINTENANCE Final Result * (ABNORMAL) Hemoglobin A1c (08/28/2024) [facility] Hemoglobin A1C 7.2(A) <=6.5 % Blood Venous blood specimen / Unknown Result [facility] Provider LAB BLOOD ORDERABLES Mariam l Result * Lipid panel (08/28/2024) [facility] LDL/HDL Ratio 3 0 - 4 Triglycerides 59 0 - 150 mg/dL Cholesterol 159 0 - 200 mg/dL HDL 60 >=40 mg/dL LDL Cholesterol 88 0 - 100 mg/dL Blood Venous blood specimen / Unknown Result [facility] Provider LAB BLOOD ORDERABLES Mariam l Result * Colonoscopy (08/01/2023) [facility] Colonoscopy no interpretation , abstracted Anatomical Region Laterality Modality Other Result [facility] Provider HEALTH MAINTENANCE Final Result * Hepatitis C Screening (02/17/2023) [facility] Hepatitis C Screening abstracted Result [facility] Provider HEALTH MAINTENANCE Final Result from Last 3 Months or Most Recently Relevant to Health Maintenance Insurance MEDICAID - [place] [id number] Care Teams Sports Doctor Relationship Specialty Start Date End Date Kenny Osullivan MD [address] [place] [phone] PCP - General 04/05/06
== END 2025-04-24 10:21 | disposition home or self-care (01) ==
LOC: HO.HKA 10:06
PROVIDERS: PCP Physician Assistant; Visit Provider Internal Medicine Hypertension Specialist
DX: E11.29 Type 2 diabetes mellitus with other diabetic kidney complication (principal); R80.9 Proteinuria, unspecified; N18.31 Chronic kidney disease, stage 3a
CPT/HCPCS: 99214

== ENCOUNTER → 2025-04-24 10:06 | Outpatient (BNVA) | payer MEDICARE, MEDICAID, SELFPAY | PROVIDERS: PCP Physician Assistant; Visit Provider Internal Medicine Hypertension Specialist | DX: E11.29 Type 2 diabetes mellitus with other diabetic kidney complication (principal); R80.9 Proteinuria, unspecified; E11.22 Type 2 diabetes mellitus with diabetic chronic kidney disease; N18.31 Chronic kidney disease, stage 3a; Z79.84 Long term (current) use of oral hypoglycemic drugs | CPT/HCPCS: 99212 ==

== ENCOUNTER 2025-05-23 08:07 | Outpatient (AMB) | payer MEDICARE, MEDICAID, SELFPAY ==
--- OUTSIDE RECORDS SUMMARY | 2025-05-23 08:12 | XMS_ITS | Clinical Summary ---
Author Organization [facility] [address] [place] [address] [place] [phone] Phone Care Team Providers Care Farm Marketer Name Role Phone Kenny Osullivan MD Primary Care Provider [phone] Allergies No known active allergies Medications naproxen (NAPROSYN) 500 mg tablet TAKE 1 TABLET BY MOUTH 2 TIMES DAILY NEEDED FOR PAIN. WITH MEALS 07/29/20 24 Active miconazole nitrate 2 % aerosol,spray Apply 1 Applicator topically daily. 07/03/20 24 Active ketoconazole (NIZORAL) 2 % cream Apply 30 mg topically 2 times daily for 360 days. 07/03/20 24 025 Active clotrimazole (LOTRIMIN) 1 % cream Apply to skin and toenails daily for 12 weeks 07/03/20 24 Active glipiZIDE (GLUCOTROL XL) 10 mg 24 hr tablet Take 1 tablet (10 mg total) by mouth 1 (one) time each day. 06/25/20 24 Active triamcinolone acetonide 0.025 % lotion Apply 1 Applicator topically 2 times daily. Apply to rash daily for 6 weeks 04/27/20 22 Active OneTouch Ultra2 Meter [facility] USE TO TEST BLOOD SUGAR DAILY 1 kit 10/07/20 24 Active lisinopril-hyd roCHLOROthiazi de (PRINZIDE,ZEST ORETIC) 20-25 mg per tablet TAKE 1 TABLET BY MOUTH EVERY DAY 90 tablet 1 11/08/19 25 Active lancets (OneTouch Delica Plus Lancet) 33 gauge USE TO TEST 3 TIMES DAILY 300 each 1 11/11/19 25 Active OneTouch Ultra Test test strip USE TO TEST BLOOD SUGAR 2 TO 3 TIMES DAILY 300 strip 1 01/25/20 25 Active lovastatin (MEVACOR) 10 mg tablet TAKE 1 TABLET BY MOUTH EVERYDAY AT BEDTIME 90 tablet 1 01/31/20 25 Active metFORMIN (GLUCOPHAGE) 1,000 mg tablet TAKE 1 TABLET BY MOUTH TWICE A DAY WITH FOOD 180 tablet 1 04/29/20 25 Active metFORMIN (GLUCOPHAGE) 1,000 mg tablet TAKE 1 TABLET BY MOUTH TWICE A DAY WITH FOOD 180 tablet 1 11/09/19 25 025 Discontinued Active Problems Problem Noted Date Diagnosed Date Type 2 diabetes mellitus wit h retinopathy, without long-term current use of insulin ([facility] V24, [facility] V28) 02/17/2023 Microalbuminuria 02/17/2023 Diabetes mellitus due to und erlying condition with stage 3 chronic kidney disease, without long-term current use of insulin ([facility] V24, [facility] V28) 02/17/2023 Type 2 diabetes mellitus wit h microalbuminuria, without long-term current use of insulin ([facility] V24, [facility] V28) 02/17/2023 Stage 3a chronic kidney disease ([facility] V24, [facility] V28) 04/22/2022 Known medical problems 07/29/2014 Overview (09/16/2024): DM (diabetes mellitus), type 2, uncontrolled, with renal complications 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 (background diabetic ret inopathy) ([facility] V24, [facility] V28) 07/02/2014 Exotropia, left eye 07/02/2014 Glaucoma suspect of both eyes 07/02/2014 Left amblyopia 07/02/2014 Intellectual disability 10/02/2008 Essential hypertension, benign 04/19/2006 Pure hypercholesterolemia 04/19/2006 Encounters Date Type Department Care Team Description 05/12/2025 9:00 AM EDT Office Visit Orthopedic Surgery - [place] [address] [phone] John Sanders, DPM Dermatophytosis of [...] Record ed Within the last 3 months, tico w many times did you visit the [...] for your loved ones. For example, children's court magistrate or elderly care for an older adult? [...] Care Team (Late st Contact Info) Description 08/12/2025 1:30 PM EDT Consult Nephrology - [place] [address] [place] [phone] Sanya Drummond MD [address] [place] [phone] 09/01/2025 8:45 AM EST Office Visit Orthopedic Surgery - [place] [address] [facility] [address] [place] [phone] John Sanders DPM [address] [facility] [address] [place] [address] Health Maintenance Due Date Last Done Comments [...] 2024 08/20/2022, 10/07/2021, 02/16/2021, Additional history exists Depression Screening 10/30/2024 10/25/2024 Diabetes: Blood Sugar Control Test (HGBA1C) 02/26/2025 08/28/2024, 08/28/2024 Diabetes: Annual Urine Albumin-Creatinine Ratio (uACR) 08/28/2025 08/28/2024 Diabetes: Annual GFR (Glomerular Filtration Rate) 08/28/2025 08/28/2024, 08/28/2024 Hypertension/CHF/CAD Annual BMP Blood Test 08/28/2025 08/28/2024, 08/28/2024 Social Influencers of Health Screening 10/25/2025 10/25/2024 [...] BMP Blood Test (08/28/2024) Pathologist [facility] Annual BMP Blood Test abstracted Result [facility] Provider HEALTH MAINTENANCE Final Result * (ABNORMAL) Hemoglobin A1c (08/28/2024) [facility] Hemoglobin A1C 7.2(A) <=6.5 % Blood Venous blood specimen / Unknown Result [facility] Provider LAB BLOOD ORDERABLES Mariam l Result * Lipid panel (08/28/2024) [facility] LDL/HDL Ratio 3 0 - 4 Triglycerides 59 0 - 150 mg/dL Cholesterol 159 0 - 200 mg/dL HDL 60 >=40 mg/dL LDL Cholesterol 88 0 - 100 mg/dL Blood Venous blood specimen / Unknown Result [facility] Provider LAB BLOOD ORDERABLES Mariam l Result * Colonoscopy (08/01/2023) [facility] Colonoscopy no interpretation , abstracted Anatomical Region Laterality Modality Other Result [facility] Provider HEALTH MAINTENANCE Final Result * Hepatitis C Screening (02/17/2023) [facility] Hepatitis C Screening abstracted [facility] Provider HEALTH MAINTENANCE Final Result from Last 3 Months or Most Recently Relevant to Health Maintenance Insurance MEDICAID - [place] UNITED [employer] MEDICARE Care Teams Farm Marketer Relationship Specialty Start Date End Date Kenny Osullivan MD [address] [place] [phone] PCP - General 04/05/06
--- OUTSIDE RECORDS SUMMARY | 2025-05-23 08:12 | XMS_ITS ---
Author Name [facility] Organization Unknown Care Team Organization Name Specialty Phone Email Start Date End Da te [facility] 09/06/2022 4
[2025-05-23 08:59] VITALS: BP 110/64; PULSE 77; TEMP 36.7; O2SAT 97; BMI 31.9
--- NOTE | 2025-05-23 08:59 | AM.OFFWIN_ITS ---
Intake Vital Signs 05/23/25 08:59 Height 5 ft 5 in Weight 191 lb 8 oz BMI 31.9 BP 110/64 Blood Pressure Location Rt brachial Position Sitting Pulse 77 Pulse Source Pulse Oximeter Temp 98.1 F Temp Source Oral Pulse Oximetry (%) 97 Oxygen Delivery Method Room Air Intake Visit Reasons: EP injured RT ankle pain & swollen Patient Tobacco Use Status: Never used Tobacco Forestry Contractor Required: No Allergies No Known Allergies Allergy (Verified 05/23/25 09:03) Medication List - Last Reconciled 05/23/25 by Rosalinda Hobbs PA-C aspirin 81 mg PO DAILY blood-glucose meter ([employer] Ultra2 Meter) As directed clotrimazole 1% appl topical glipizide ER 20 mg (2 x 10 mg) PO DAILY ketoconazole 2% appl topical lancets ([employer] Delica Plus Lancet) As directed lisinopril 20 mg PO DAILY lovastatin 10 mg PO DAILY metformin 1,000 mg PO BID miconazole nitrate 2% (Athlete's Foot) sprays topical DAILY naproxen 500 mg PO BID PRN 90 days OneTouch Ultra Test (blood sugar diagnostic) once daily NS semaglutide (Rybelsus) 7 mg PO DAILY tamsulosin 0.4 mg PO BEDTIME Do you need a note to return to daycare/school/sports/work: No HPI HPI Comments History of Present Illness Details History of Present Illness - The patient is a 60-year-old male pres enting with a laceration on the front of the right ankle with surrounding erythema. - The laceration occurred two days ago w hile mowing the lawn when a piece of wood kicked back and cut the front of his right ankle. - His cleaned the wound with hydrog en peroxide and applied Neosporin. - The patient noticed redness surroundin g the wound this morning, which has been increasing in size and tenderness. - He denies any drainage or fever. - The patient has a history of diabetes mellitus. Physical Exam General: Cooperative, healthy appearing, comfortable, no acute distress and well developed Orientation: Patient oriented x3 Limitations: No limitations Head: Normal to inspection Ears: Hearing grossly normal bilaterally Nose: Normal External nose present Face and sinus: Normal facial exam Eyes: Appearance normal, both eyes and all related structures Neck: Normal visual inspection and Yes full ROM Respiratory: Normal respiratory effort and able to speak in complete sentences. Skin: No rashes or lesions noted Neuro: Patient oriented x3 Extremities: right ankle anterior with 1cm round abrasion and 2cm x 1cm ulceration with surrounding erythema which is TTP, no warmth, no drainage observed. [facility] Surgical History History of surgery on arm Family History Father Alcoholism Social History Housing: House Alcohol intake: current Alcohol intake frequency: holidays/special occasions only Patient Tobacco Use Status: Never used Tobacco e-Cigarette/Vaping Use: Never Used Second Hand Smoke Exposure: No service: No Current occupational status: disabled Cognitive needs: No Hearing needs: No Vision needs: Yes (Glasses) Review of Systems Const All systems reviewed & are unremarkable except as noted in HPI and below Physical Exam Vital Signs: Last Vital Signs Temp 98.1 F 05/23/25 08:59 Pulse 77 05/23/25 08:59 BP 110/64 05/23/25 08:59 Pulse Ox 97 05/23/25 08:59 Oxygen Delivery Method Room Air 05/23/25 08:59 BMI result Body Mass Index 31.9 Assessment & Plan Assessment & Plan (1) Cellulitis: Code(s): L03.90 - Cellulitis, unspecified Qualifiers: Site of cellulitis: extremity Site of cellulitis of extremity: lower extremity Laterality: right Qualified Code(s): L03.115 - Cellulitis of right lower limb Plan: Plan - as patient is diabetic, and out of an abundance of caution, did prescribe Keflex. - no history of MRSA, advised patient to return to the clinic if symptoms do not improve after being on the Keflex for a few days. We could add Bactrim or doxy at that point if needed. - Wound care instructions given - Advised to keep blood sugars in range for good healing. Patient was informed and verbally consented to the use of an ambient scribe for clinic note documentation during this visit. Medications: New cephalexin 500 mg PO Q6H 28 caps 0RF Coding Level of Care Code Est Pt Level 3 (19490) Diagnoses Cellulitis of right lower extremity L03.115 Site of cellulitis: extremity Site of cellulitis of extremity: lower extremity Laterality: right
== END 2025-05-23 11:13 | disposition home or self-care (01) ==
PROVIDERS: PCP Physician Assistant; Visit Provider Physician Assistant
DX: L03.115 Cellulitis of right lower limb (principal)

== ENCOUNTER → 2025-05-23 08:07 | Outpatient (BNVA) | payer MEDICARE, MEDICAID, SELFPAY | PROVIDERS: PCP Physician Assistant; Visit Provider Physician Assistant | DX: L03.115 Cellulitis of right lower limb (principal) | CPT/HCPCS: 99212 ==

== ENCOUNTER 2025-06-09 09:34 | Outpatient (REF) | payer MEDICARE, MEDICAID, SELFPAY ==
--- OUTSIDE RECORDS SUMMARY | 2025-06-09 10:03 | XMS_ITS | Clinical Summary ---
Author Organization [facility] [address] [place] [address] [place] [phone] Phone Care Team Providers Care Adjunct Nursing Faculty Name Role Phone Kenny Osullivan MD Primary Care Provider [phone] Allergies No known active allergies Medications naproxen [...] 6 weeks 2 Active OneTouch Ultra2 Meter [facility] USE TO TEST BLOOD SUGAR DAILY 1 kit 4 Active lisinopril-hydr oCHLOROthiazide (PRINZIDE,ZESTO RETIC) 20-25 mg per tablet TAKE 1 TABLET BY MOUTH EVERY DAY 90 tablet 1 5 Active lancets (OneTouch Delica Plus Lancet) 33 gauge USE TO TEST 3 TIMES DAILY 300 each 1 5 Active OneTouch Ultra Test test strip USE TO TEST BLOOD SUGAR 2 TO 3 TIMES DAILY 300 strip 1 5 Active lovastatin (MEVACOR) 10 mg tablet TAKE 1 TABLET BY MOUTH EVERYDAY AT BEDTIME 90 tablet 1 Active metFORMIN (GLUCOPHAGE) 1,000 mg tablet TAKE 1 TABLET BY MOUTH TWICE A DAY WITH FOOD 180 tablet 1 5 Active Active Problems Problem Noted Date Diagnosed Date Type 2 diabetes mellitus wit h retinopathy, without long-term current use of insulin ([facility] V24, [facility] V28) 02/17/2023 Microalbuminuria 02/17/2023 Diabetes mellitus due to und erlying condition with stage 3 chronic kidney disease, without long-term current use of insulin ([facility] V24, [facility] V28) 02/17/2023 Type 2 diabetes mellitus wit h microalbuminuria, without long-term current use of insulin ([facility] V24, [facility] V28) 02/17/2023 Stage 3a chronic kidney disease ([facility] V24, [facility] V28) 04/22/2022 Known medical problems 07/29/2014 Overview (09/16/2024): DM (diabetes mellitus), type 2, uncontrolled, with renal complications 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 For example, housekeeper child care or elderly care for an older adult? [...] Consult Nephrology - [address] [place] [phone] Sanya Drummond MD [address] [place] [address] 09/01/2025 8:45 AM EST Office Visit Orthopedic Surgery - [place] [address] [facility] [address] [place] [phone] John Sanders, DPM 175 [facility] [address] [place] [address] Health Maintenance Due Date Last Done Comments [...] Ratio (08/28/2024) Urine Albumin Creatinine Ratio abstracted us Historical Provider HEALTH MAINTENANCE Final Result * Annual BMP Blood Test (08/28/2024) Annual BMP Blood Test abstracted Historical Provider HEALTH MAINTENANCE Final Result * (ABNORMAL) Hemoglobin A1c (08/28/2024) Pathologist [facility] Hemoglobin A1C 7.2(A) <=6.5 % Blood Venous blood specimen / Unknown Result [facility] Provider LAB BLOOD ORDERABLES Mariam l Result * Lipid panel (08/28/2024) [facility] LDL/HDL Ratio 3 0 - 4 Triglycerides 59 0 - 150 mg/dL Cholesterol 159 0 - 200 mg/dL HDL 60 >=40 mg/dL LDL Cholesterol 88 0 - 100 mg/dL Blood Venous blood specimen / Unknown Result [facility] Provider LAB BLOOD ORDERABLES Mariam l Result * Colonoscopy (08/01/2023) Pathologist [facility] Colonoscopy no interpretation , abstracted Anatomical Region Laterality Modality Other Result [facility] Provider HEALTH MAINTENANCE Final Result * Hepatitis C Screening (02/17/2023) Pathologist [facility] Hepatitis C Screening abstracted Result [facility] Provider HEALTH MAINTENANCE Final Result from Last 3 Months or Most Recently Relevant to Health Maintenance Insurance [place] - [place] [employer] MEDICARE Care Teams Adjunct Nursing Faculty Relationship Specialty Start Date End Date Kenny Osullivan MD [address] [place] [id number] PCP - General 04/05/06
[2025-06-09 11:01] LABS: Anion Gap 11 (12-20); Blood Urea Nitrogen 19 mg/dL (9-16); Calcium 8.6 mg/dL (8.4-10.2); Carbon Dioxide 27 mmol/L (22-29); Chloride 107 mmol/L (96-108); Estimated Glomerular Filt Rate > 60; Potassium 4.8 mmol/L (3.3-5.1); Sodium 140 mmol/L (135-145)
== END 2025-06-09 09:35 | disposition home or self-care (01) ==
LOC: HO.LAB 09:34
PROVIDERS: PCP Physician Assistant; Visit Provider Internal Medicine Hypertension Specialist
DX: N18.31 Chronic kidney disease, stage 3a (principal)
CPT/HCPCS: 36415; 80048

== ENCOUNTER 2025-06-16 10:04 | Outpatient (AMB) | payer MEDICARE, MEDICAID, SELFPAY ==
[2025-06-16 10:06] VITALS: BP 110/80; PULSE 73; O2SAT 100; BMI 31.6
--- NOTE | 2025-06-16 10:06 | HO.NEPHOV_ITS ---
Vital Signs 06/16/25 10:06 Height 5 ft 5 in Weight 190 lb BMI 31.6 BP 110/80 Blood Pressure Location Lt brachial Position Sitting Pulse 73 Pulse Source Pulse Oximeter Pulse Oximetry (%) 100 Oxygen Delivery Method Room Air Intake Visit Reasons: 2 MO FU/ Conf Marriage And Family Social Worker Required: No Accompanied by: Self / Same As Patient Allergies No Known Allergies Allergy (Verified 06/16/25 10:08) Medication List - Last Reconciled 06/16/25 by Taurus Beckwith MD aspirin 81 mg PO DAILY blood-glucose meter (OneTouch Ultra2 Meter) As directed cephalexin 500 mg PO Q6H clotrimazole 1% appl topical Contour Meter (blood-glucose meter) As directed NS Contour Test Strips (blood sugar diagnostic) once daily NS glipizide ER 20 mg (2 x 10 mg) PO DAILY ketoconazole 2% appl topical lancets (OneTouch Delica Plus Lancet) As directed lancets (Easy Touch Safety Lancets) once daily lisinopril 20 mg PO DAILY lovastatin 10 mg PO DAILY metformin 1,000 mg PO BID miconazole nitrate 2% (Athlete's Foot) sprays topical DAILY naproxen 500 mg PO BID PRN 90 days OneTouch Ultra Test (blood sugar diagnostic) once daily NS semaglutide (Rybelsus) 7 mg PO DAILY tamsulosin 0.4 mg PO BEDTIME HPI Comments Details: 60-year-old male referred for proteinuria and concerns regarding chronic kidney disease likely due to diabetic nephropathy. He has had diabetes mellitus, type 2 for over 30 years. He last had renal blood work done in November, without specific lab values provided during the conversation. Patient describes his diabetes as being generally well-managed, though specific blood glucose or HbA1c values were not discussed. He was informed about potential proteinuria due to long-term diabetes affecting the renal function. h/o Microhematuria. Seen by urology The patient is on medication for hyperlipidemia and essential hypertension. He takes naproxen twice daily for chronic pain, despite attempting to reduce dosage because of symptom recurrence. He leads a non-working lifestyle with a lifelong history of disability. He denies symptoms such as trouble with urination or respiratory complaints and has no significant renal family history. He reports minimal alcohol consumption and resides with his mother. 04/24/25 The patient is a 60-year-old male presenting for management of decreased kidney function and associated medication review. The patient has been experiencing tendinitis, which necessitates the use of naproxen twice daily to manage symptoms in the arm, shoulder, and neck. The patient reports that reducing the naproxen dosage exacerbates the tendinitis symptoms. The patient's kidney function has decreased to 52%, as indicated by recent blood tests The patient is currently taking lisinopril with a diuretic for blood pressure management. 06/16/25 The patient is a 60-year-old male presenting for follow-up regarding chronic kidney disease and proteinuria. Chronic kidney disease shows improved function; proteinuria is controlled. Hypertension is managed with lisinopril 20 mg; blood pressure is stable. Naprosyn has been discontinued to aid kidney function. No leg swelling, urinary, or gastrointestinal issues reported. Patient follows a low-salt diet and exercises regularly. [facility] Surgical History History of surgery on arm Family History Father Alcoholism Social History Housing: House Alcohol intake: current Alcohol intake frequency: holidays/special occasions only Patient Tobacco Use Status: Never used Tobacco e-Cigarette/Vaping Use: Never Used Second Hand Smoke Exposure: No service: No Current occupational status: disabled Cognitive needs: No Hearing needs: No Vision needs: Yes (Glasses) Physical Exam Vital Signs: Last Vital Signs Pulse 73 06/16/25 10:06 BP 110/80 06/16/25 10:06 Pulse Ox 100 06/16/25 10:06 Oxygen Delivery Method Room Air 06/16/25 10:06 BMI result Body Mass Index 31.6 Const General: comfortable Nutritional Appearance: well nourished Orientation/consciousness: patient oriented x3 HEENT Head: No normal to inspection Mouth: moist mucous membranes Neck Neck: Yes supple and Yes no JVD Resp Auscultation: clear to auscultation bilaterally and no rales Cardio Jugular venous distension: no JVD Palpation: no palpable S3 and no palpable S4 Heart sounds: no rubs GI Palpation (GI): Soft to palpation and nontender Percussion: No Fluid wave present General: Yes no CVA tenderness Back/Spine/Pelvis Back: no CVA tenderness Skin General skin exam: no rashes or lesions noted Neuro General: patient oriented x3 Extrem General: Yes no pedal edema and No clubbing Results Reviewed Nephrology Results: Sodium, (135-145) 140 mmol/L 06/09/25 Potassium, (3.3-5.1) 4.8 mmol/L 06/09/25 Chloride, (96-108) 107 mmol/L 06/09/25 Carbon Dioxide, (22-29) 27 mmol/L 06/09/25 BUN, (9-16) 19 mg/dL H 06/09/25 Creatinine, (0.5-1.4) 1.16 mg/dL 06/09/25 Calcium, (8.4-10.2) 8.6 mg/dL Δ 06/09/25 Urine Protein, (Neg-Trace) 30 (1+) mg/dL H 04/08/25 Urine Creatinine 131.82 mg/dL 04/08/25 Assessment & Plan Assessment & Plan (1) Proteinuria due to type 2 diabetes mellitus: Code(s): E11. - Type 2 diabetes mellitus with other diabetic kidney complication; R80.9 - Proteinuria, unspecified Category: Medical (2) CKD (chronic kidney disease) stage 3, GFR 30-59 ml/min: Code(s): N18.30 - Chronic kidney disease, stage 3 unspecified Category: Medical Qualifiers: Chronic kidney disease stage 3 subtype: stage 3a (GFR 45-59) Qualified Code(s): N18.31 - Chronic kidney disease, stage 3a Plan Proteinuria most likely due to underlying DM- Diabetic kidney disease Creatinine has been stable as of Nov 2024 He probably has hyperfilteration in a setting of DM Minimal Urine Pro: Cr i s 0.21 Mild bump in creatinine 1.4 Most likely due to combination of ACEi/HCTZ and NSAIDS After stopping NSAIDS and HCTZ, cr is down to 1.16 ~ at baseline Maintain A1C < 7% and BP < 130/80 Low salt diet Weight loss Keep I > O Orders: Orders Basic Metabolic Panel 6 Months - Type 2 diabetes mellitus with other diabetic kidney complication, N18.31 - Chronic kidney disease, stage 3a, R80.9 - Proteinuria, unspecified Total Protein Urine Random 6 Months E11.29 - Type 2 diabetes mellitus with other diabetic kidney complication, N18.31 - Chronic kidney disease, stage 3a, R80.9 - Proteinuria, unspecified UA and rflx microscopic 6 Months E11.29 - Type 2 diabetes mellitus with other diabetic kidney complication, N18.31 - Chronic kidney disease, stage 3a, R80.9 - Proteinuria, unspecified Creatinine Urine 6 Months E11.29 - Type 2 diabetes mellitus with other diabetic kidney complication, N18.31 - Chronic kidney disease, stage 3a, R80.9 - Proteinuria, unspecified Coding Level of Care Code Est Pt Level 4 (55965) Diagnoses Proteinuria due to type 2 diabetes mellitus E11.; R80.9 Stage 3a chronic kidney disease N18.31 Chronic kidney disease stage 3 subtype: stage 3a (GFR 45-59)
--- OUTSIDE RECORDS SUMMARY | 2025-06-16 10:58 | XMS_ITS | Encounter Summary ---
Author Organization [facility] Address [address] [place] [address] Care Team Providers Care Property Developer Name Role Phone Kenny Osullivan MD Primary Care Provider [phone] Reason for Visit * Reason Onset Date Comments Prior Authorization 09/05/2022 Encounter Details Date Type Department Care Team Description 09/05/2022 Telephone Gastroenterology - [address] [place] [address] Momo Kumari MD [address] [place] [phone] Prior Authorization Social History Tobacco Use Types Packs/Day Years Used Date Smoking Tobacco: Never Smokeless Tobacco: Never Alcohol Use Standard Drinks/Week Comments Yes 0 (1 standard drink = 0.6 oz pur e alcohol) occasion Sex Assigned at Date Recorded Not on file Job Start Date Occupation Industry Not on file Not on file Not on file COVID-19 Exposure Response Date Recorded In the last 10 days, have phuong u been in contact with someone who was confirmed or suspected to have Coronavirus/COVID-19? No / Unsure 08/19/2022 3:22 PM EDT documented as of this encounter Miscellaneous Notes * Telephone Encounter - Yecenia Viramontes - 09/05/2022 4:39 PM EST PRIOR AUTH REQUEST SENT THRU STAFF MESSAGE documented in this encounter Plan of Treatment Not on file documented as of this encounter Visit Diagnoses Not on filedocumented in this encounter Care Teams Property Developer Relationship Specialty Start Date End Date Kenny Osullivan MD [address] [place] [phone] PCP - General 04/05/06 documented as of this encounter
--- OUTSIDE RECORDS SUMMARY | 2025-06-16 10:58 | XMS_ITS | Clinical Summary ---
Author Organization [facility] [address] [place] [address] [place] [phone] Phone Care Team Providers Care Personal Chef Name Role Phone Kenny Osullivan MD Primary Care Provider [phone] Allergies No known active allergies Medications naproxen [...] 6 weeks 2 Active OneTouch Ultra2 Meter [facility] USE TO TEST BLOOD SUGAR DAILY [...] retinopathy, without long-term current use of insulin ([facility] V24, [facility] V28) 02/17/2023 Microalbuminuria 02/17/2023 Diabetes mellitus due to und erlying condition with stage 3 chronic kidney disease, without long-term current use of insulin ([facility] V24, [facility] V28) 02/17/2023 Type 2 diabetes mellitus wit h microalbuminuria, without long-term current use of insulin ([facility] V24, [facility] V28) 02/17/2023 Stage 3a chronic kidney disease ([facility] V24, [facility] V28) 04/22/2022 Known medical problems 07/29/2014 Overview (09/16/2024): DM (diabetes mellitus), type 2, uncontrolled, with renal complications 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 For example, early childhood education coordinator or elderly care for an older adult? [...] Consult Nephrology - [address] [place] [phone] Sanya Drummond MD [address] [place] [address] 09/01/2025 8:45 AM EST Office Visit Orthopedic Surgery - [place] [address] [facility] [address] [place] [phone] John Sanders, DPM 175 [facility] [address] [place] [address] Health Maintenance Due Date Last Done Comments [...] Result * (ABNORMAL) Hemoglobin A1c (08/28/2024) Pathologist [facility] Hemoglobin A1C 7.2(A) <=6.5 % Blood Venous blood specimen / Unknown Result [facility] Provider LAB BLOOD ORDERABLES Mariam l Result * Lipid panel (08/28/2024) [facility] LDL/HDL Ratio 3 0 - 4 Triglycerides 59 0 - 150 mg/dL Cholesterol 159 0 - 200 mg/dL HDL 60 >=40 mg/dL LDL Cholesterol 88 0 - 100 mg/dL Blood Venous blood specimen / Unknown Result [facility] Provider LAB BLOOD ORDERABLES Mariam l Result * Colonoscopy (08/01/2023) Pathologist [facility] Colonoscopy no interpretation , abstracted Anatomical Region Laterality Modality Other Result [facility] Provider HEALTH MAINTENANCE Final Result * Hepatitis C Screening (02/17/2023) Pathologist [facility] Hepatitis C Screening abstracted Result [facility] Provider HEALTH MAINTENANCE Final Result from Last 3 Months or Most Recently Relevant to Health Maintenance Insurance [place] - [place] [employer] MEDICARE Care Teams Personal Chef Relationship Specialty Start Date End Date Kenny Osullivan MD [address] [place] [phone] PCP - General 04/05/06
== END 2025-06-16 10:17 | disposition home or self-care (01) ==
LOC: HO.HKA 10:05
PROVIDERS: PCP Physician Assistant; Visit Provider Internal Medicine Hypertension Specialist
DX: E11.29 Type 2 diabetes mellitus with other diabetic kidney complication (principal); R80.9 Proteinuria, unspecified; N18.31 Chronic kidney disease, stage 3a
CPT/HCPCS: 99214

== ENCOUNTER → 2025-06-16 10:04 | Outpatient (BNVA) | payer MEDICARE, MEDICAID, SELFPAY | PROVIDERS: PCP Physician Assistant; Visit Provider Internal Medicine Hypertension Specialist | DX: E11.29 Type 2 diabetes mellitus with other diabetic kidney complication (principal); R80.9 Proteinuria, unspecified; E11.22 Type 2 diabetes mellitus with diabetic chronic kidney disease; N18.31 Chronic kidney disease, stage 3a; Z79.4 Long term (current) use of insulin; Z79.84 Long term (current) use of oral hypoglycemic drugs; Z79.82 Long term (current) use of aspirin; Z79.899 Other long term (current) drug therapy | CPT/HCPCS: 99212 ==

== ENCOUNTER 2025-07-30 10:20 | Outpatient (AMB) | payer MEDICARE, MEDICAID, SELFPAY ==
--- NOTE | 2025-07-30 10:21 | A.OFFVIS_ITS ---
Vital Signs 07/30/25 10:24 Height 5 ft 5 in Weight 191 lb 12.835 oz BMI 31.9 BP 122/80 Blood Pressure Location Rt brachial Position Sitting Pulse 67 Pulse Source Pulse Oximeter Pulse Oximetry (%) 98 Oxygen Delivery Method Room Air Intake Visit Reasons: T2DM Intake Note: Patient presents today for a follow-up on Type 2 Diabetes Mellitus: Last Diabetic eye exam was on: 06/03/2025, [facility] Last Podiatry exam was on: Patient does not see a [employer] Aircrewman Most recent HbA1c: 6.1%, 07/30/2025 Random Glucose- 151 mg/dL, Today Wash House Worker Required: No Accompanied by: Self / Same As Patient Allergies No Known Allergies Allergy (Verified 07/30/25 10:26) HPI Comments Details: 59 year old male with diabetes presenting for follow up Medical history: hypertension, hyperlipidemia Diagnosed with diabetes around age 42 A1C today is 6.1% from 6.8% on 03/05/25 from 7.4 11/2024, 7.2% 09/16/24 Using one touch ultra2 -checking at least once daily fasting. 84-180 Current medications: Glipizide xl 20 mg daily metformin 1000mg twice daily rybelsus 7mg (added last visit) Denies hypoglycemia Eye exam 06/03/2025-mild diabetic retinopathy LDL 92-declines statin 12/24 +alb/cr on [facility] 12/24. Follows with nephrology Following with podiatry Family history of diabetes: Aunt type 1. Maternal grandmother type 2 diabetes ROS CONSTITUTIONAL: Denies weight loss, fever and chills. HEENT: Denies changes in vision and hearing. RESPIRATORY: Denies SOB and cough. CV: Denies palpitations and CP GI: Denies abdominal pain, nausea, vomiting and diarrhea. : Nightime urination MSK: Denies new myalgia and joint pain. SKIN: Denies rash and pruritus. NEUROLOGICAL: Denies headache PSYCHIATRIC: Denies recent changes in mood. PHYSICAL EXAM: GENERAL: Alert and oriented x 3. NAD EYES: EOMI. Anicteric. HENT: Moist mucous membranes. No scleral icterus. No cervical lymphadenopathy. LUNGS: Clear to auscultation bilaterally. CARDIOVASCULAR: Regular rate and rhythm. No murmur. No JVD. ABDOMEN: Soft, non-tender +bs EXTREMITIES: No edema. Non-tender. SKIN: No rashes or lesions. Warm. NEUROLOGIC: No focal neurological deficits. CN II-XII grossly intact PSYCHIATRIC: Cooperative. Appropriate mood and affect [facility] Surgical History History of surgery on arm Family History Father Alcoholism Social History Housing: House Alcohol intake: current Alcohol intake frequency: holidays/special occasions only Patient Tobacco Use Status: Never used Tobacco e-Cigarette/Vaping Use: Never Used Second Hand Smoke Exposure: No service: No Current occupational status: disabled Cognitive needs: No Hearing needs: No Vision needs: Yes (Glasses) Physical Exam Vital Signs: Last Vital Signs Pulse 67 07/30/25 10:24 BP 122/80 07/30/25 10:24 Pulse Ox 98 07/30/25 10:24 Oxygen Delivery Method Room Air 07/30/25 10:24 BMI result Body Mass Index 31.9 Results AMB Hemoglobin A1c AMB Hemoglobin A1c 6.1 % Last Edit by SID Aguilera on 07/30/25 10:38 Results Reviewed Results Reviewed: Laboratory Last Values Glucose (Clinic) 151 mg/dL (60-115) H 07/30/25 10:28 Assessment & Plan Assessment & Plan (1) Type 2 diabetes mellitus: Code(s): E11.9 - Type 2 diabetes mellitus without complications Category: Medical Qualifiers: Diabetes mellitus complication status: with hyperglycemia Diabetes mellitus longterm insulin use: without conversion man use Qualified Code(s): E11.65 - Type 2 diabetes mellitus with hyperglycemia (2) CKD (chronic kidney disease) stage 3, GFR 30-59 ml/min: Code(s): N18.30 - Chronic kidney disease, stage 3 unspecified Category: Medical Qualifiers: Chronic kidney disease stage 3 subtype: stage 3a (GFR 45-59) Qualified Code(s): N18.31 - Chronic kidney disease, stage 3a (3) Proteinuria due to type 2 diabetes mellitus: Code(s): E11.29 - Type 2 diabetes mellitus with other diabetic kidney complication; R80.9 - Proteinuria, unspecified Category: Medical Plan 60 year old male presenting for diabetic follow up Diabetes is well controlled. No hypoglycemia. Eye exam is utd. Follows nephrology. Consider statin therapy Treat any hypoglycemia by rules of 15s Return in 3 months or sooner as needed Orders: Orders AMB Hemoglobin A1c Today E11.29 - Type 2 diabetes mellitus with other diabetic kidney complication, R80.9 - Proteinuria, unspecified Medications: Refilled Contour Plus Test Strip (blood sugar diagnostic) once daily 100 ea 3RF NS E11.65 - Type 2 diabetes mellitus with hyperglycemia Coding Level of Care Code Est Pt Level 4 (40772) Diagnoses Type 2 diabetes mellitus with hyperglycemia, without long-term current use of insulin E11.65 Diabetes mellitus complication status: with hyperglycemia Diabetes mellitus conversion man insulin use: without conversion man use Stage 3a chronic kidney disease N18.31 Chronic kidney disease stage 3 subtype: stage 3a (GFR 45-59) Proteinuria due to type 2 diabetes mellitus E11.29; R80.9
[2025-07-30 10:24] VITALS: BP 122/80; PULSE 67; O2SAT 98; BMI 31.9
[2025-07-30 10:31] LABS: Glucose, Whole Blood 151 mg/dL (60-115)
--- OUTSIDE RECORDS SUMMARY | 2025-07-30 11:35 | XMS_ITS | Clinical Summary ---
Author Organization [facility] [address] [place] [address] [place] [phone] Phone Care Team Providers Care Highway [employer] Worker Name Role Phone Kenny Osullivan MD Primary Care Provider [phone] Allergies No known active allergies Medications naproxen (NAPROSYN) 500 mg tablet TAKE 1 TABLET BY MOUTH 2 TIMES DAILY NEEDED FOR PAIN. WITH MEALS 07/29/20 24 Active miconazole nitrate 2 % aerosol,spray Apply 1 Applicator topically daily. 07/03/20 24 Active clotrimazole (LOTRIMIN) 1 % cream Apply [...] weeks 04/27/20 22 Active OneTouch Ultra2 Meter misc USE TO TEST BLOOD SUGAR DAILY 1 kit 10/07/20 24 Active lisinopril-hyd roCHLOROthiazi de (PRINZIDE,ZEST ORETIC) 20-25 mg per tablet TAKE 1 TABLET BY MOUTH EVERY DAY 90 tablet 1 11/08/19 25 Active OneTouch Ultra Test test strip USE TO TEST BLOOD SUGAR 2 TO 3 TIMES DAILY 300 strip 1 01/25/20 25 Active lovastatin (MEVACOR) 10 mg tablet TAKE 1 TABLET BY MOUTH EVERYDAY AT BEDTIME 90 tablet 1 01/31/20 25 Active metFORMIN (GLUCOPHAGE) 1,000 mg tablet TAKE 1 TABLET BY MOUTH TWICE A DAY WITH FOOD 180 tablet 1 04/29/20 25 Active lancets (OneTouch Delica Plus Lancet) 33 gauge USE TO TEST 3 TIMES DAILY 300 each 1 07/09/20 25 Active lancets (OneTouch Delica Plus Lancet) 33 gauge USE TO TEST 3 TIMES DAILY 300 each 1 11/11/19 25 025 Discontinued Active Problems Problem Noted Date Diagnosed Date Type 2 diabetes mellitus wit h retinopathy, without long-term current use of insulin ([facility] V24, [facility] V28) 02/17/2023 Microalbuminuria 02/17/2023 Diabetes mellitus due to und erlying condition with stage 3 chronic kidney disease, without long-term current use of insulin ([facility] V24, [facility] V28) 02/17/2023 Type 2 diabetes mellitus wit h microalbuminuria, without long-term current use of insulin ([facility] V24, [facility] V28) 02/17/2023 Stage 3a chronic kidney disease ([facility] V24, [facility] V28) 04/22/2022 Known medical problems 07/29/2014 Overview (09/16/2024): DM (diabetes mellitus), type 2, uncontrolled, with renal complications CAR SALESMAN (background diabetic ret inopathy) ([facility] V24, [facility] V28) 07/02/2014 Exotropia, left eye 07/02/2014 Glaucoma suspect of both eyes 07/02/2014 Left amblyopia 07/02/2014 Intellectual disability 10/02/2008 Essential hypertension, benign 04/19/2006 Pure hypercholesterolemia 04/19/2006 Encounters Date Type Department Care Team Description 05/12/2025 9:00 AM EDT Office Visit Orthopedic Surgery - [place] [address] [place] [phone] John Sanders, DPM Dermatophytosis of nail (Primary Dx); Tinea pedis of both feet from Last 3 Months Immunizations Immunization Administration Dates Next Due Influenza trivalent, 0.5mL, [...] your loved ones. For example, child care lead teacher or elderly care for an older [...] Date Recorded What is your living situation? Unrecognized valu e 10/25/2024 Sex and Gender Information Value Date Recorded [...] Consult Nephrology - [place] [address] [place] [phone] Sanya Drummond MD [address] [place] [phone] 09/01/2025 8:45 AM EST Office Visit Orthopedic Surgery - [place] [address] [facility] [address] [place] [phone] John Sanders, DPM 175 [facility] [address] [place] [phone] Health Maintenance Due Date Last Done Comments Diabetes: Annual Foot Exam 1977 Diabetes: Annual Retina Eye Exam 1977 Hepatitis B Vaccines (1 of 3 - 19+ 3-dose series) 1986 Pneumococcal Vaccine: 50+ Years (2 of 2 - PCV) 09/06/2018 09/06/2017 Colorectal Cancer Screening: Stool Based Tests (FOBT/FIT) 10/08/2022 Medicare Annual Wellness Visit 02/18/2024 02/17/2023 Depression Screening 10/30/2024 10/25/2024 Diabetes: Blood Sugar Control Test (HGBA1C) 02/26/2025 08/28/2024, 08/28/2024 COVID-19 Vaccine ( season) 2025 08/20/2022, 10/07/2021, 02/16/2021, Additional history exists Diabetes: Annual Urine Albumin-Creatinine Ratio (uACR) 08/28/2025 08/28/2024 Diabetes: Annual GFR (Glomerular Filtration Rate) 08/28/2025 08/28/2024, 08/28/2024 Hypertension/CHF/CAD Annual BMP Blood Test 08/28/2025 08/28/2024, 08/28/2024 Social Influencers of Health Screening 10/25/2025 10/25/2024 DTaP,Tdap,and Td Vaccines (2 - Td or Tdap) 12/07/2026 12/07/2016 Cholesterol Screening (Lipid Panel) 08/28/2029 08/28/2024, 08/28/2024 RSV Immunization Adult Patients (1 - 1-dose 75+ series) 2042 Influenza Vaccine Discontinued 08/08/2007, 09/28/2006 Hepatitis C [...] Result * Annual BMP Blood Test (08/28/2024) [facility] Annual BMP Blood Test abstracted Result [facility] Provider HEALTH MAINTENANCE Final Result * (ABNORMAL) Hemoglobin A1c (08/28/2024) [facility] Hemoglobin A1C 7.2(A) <=6.5 % Blood Venous blood specimen / Unknown Result [facility] Provider LAB BLOOD ORDERABLES Mariam l Result * Lipid panel (08/28/2024) [facility] LDL/HDL Ratio 3 0 - 4 Triglycerides 59 0 - 150 mg/dL Cholesterol 159 0 - 200 mg/dL HDL 60 >=40 mg/dL LDL Cholesterol 88 0 - 100 mg/dL Blood Venous blood specimen / Unknown Result [facility] Provider LAB BLOOD ORDERABLES Mariam l Result * Colonoscopy (08/01/2023) [facility] Colonoscopy no interpretation , abstracted Anatomical Region Laterality Modality Other Result [facility] Provider HEALTH MAINTENANCE Final Result * Hepatitis C Screening (02/17/2023) [facility] Hepatitis C Screening abstracted Result [facility] Provider HEALTH MAINTENANCE Final Result from Last 3 Months or Most Recently Relevant to Health Maintenance Insurance [place] - [place] [employer] MEDICARE Care Teams Highway Maintenance Crew Worker Relationship Specialty Start Date End Date Kenny Osullivan MD [address] [place] [phone] PCP - General 04/05/06
== END 2025-07-30 10:46 | disposition home or self-care (01) ==
LOC: HO.ENCR 10:21
PROVIDERS: PCP Physician Assistant; Visit Provider Internal Medicine
DX: E11.65 Type 2 diabetes mellitus with hyperglycemia (principal); N18.31 Chronic kidney disease, stage 3a; E11.29 Type 2 diabetes mellitus with other diabetic kidney complication; R80.9 Proteinuria, unspecified

== ENCOUNTER → 2025-07-30 10:20 | Outpatient (BNVA) | payer MEDICARE, MEDICAID, SELFPAY | PROVIDERS: PCP Physician Assistant; Visit Provider Internal Medicine | DX: E11.65 Type 2 diabetes mellitus with hyperglycemia (principal); E11.22 Type 2 diabetes mellitus with diabetic chronic kidney disease; N18.31 Chronic kidney disease, stage 3a; E11.319 Type 2 diabetes mellitus with unspecified diabetic retinopathy without macular edema; E11.29 Type 2 diabetes mellitus with other diabetic kidney complication; R80.9 Proteinuria, unspecified | CPT/HCPCS: 82947; 83036; 99212 ==

== ENCOUNTER 2025-08-16 15:45 | Emergency (ER) | payer MEDICARE, MEDICAID, SELFPAY ==
--- NOTE | ~2025-08-16 | XR_ITS ---
CLINICAL HISTORY: pain and swelling 4 views right hand Comparison: None Findings: No fractures, subluxations or dislocations. 2.2 cm probable enchondroma 3rd proximal phalanx without cortical destruction. Joint intervals are preserved. No periostitis Ulnar styloid preserved. Soft tissue swelling. Calcified atherosclerotic disease. Carpal bones unremarkable. No radiopaque foreign body. Impression: 1. Probable enchondroma 3rd proximal phalanx. Soft tissue swelling of the hand. Calcified atherosclerotic disease. No acute osseous abnormality This document has been electronically signed by: Darek Jacobson MD on 08/16/2025 17:04:59
--- NOTE | ~2025-08-16 | XR_ITS ---
CLINICAL HISTORY: pain and swelling 4 views right wrist Comparison: None Findings: No carpal bone fractures or carpal malalignment. Distal radiocarpal joint intact. Radial and ulnar styloid preserved. No bony erosive changes. Normal bone mineralization. Advanced calcified atherosclerotic disease for patient's age No radiopaque foreign body. Impression: 1. No acute osseous abnormality. Moderate calcified atherosclerotic disease This document has been electronically signed by: Darek Jacobson MD on 08/16/2025 16:57:40
[2025-08-16 15:53] VITALS: BP 143/81; PULSE 87; RESP 18; TEMP 37; O2SAT 96; BMI 30.3
--- NOTE | 2025-08-16 15:54 | ED.GENADULT ---
HPI - General Adult General Chief complaint: Extremity Injury, Upper Stated complaint: swollen right hand happened on a cruise Related Data Home Medications ?Medication ?Instructions ?Recorded ?Confirmed blood-glucose meter (OneTouch #1 ea 11/13/24 06/16/25 Ultra2 Meter) clotrimazole 1 % topical cream appl topical 11/13/24 06/16/25 ketoconazole 2 % topical cream appl topical 11/13/24 06/16/25 lovastatin 10 mg tablet 10 mg PO DAILY 11/13/24 06/16/25 metformin 1,000 mg tablet 1,000 mg PO BID 11/13/24 06/16/25 miconazole nitrate 2 % topical spray topical DAILY 11/13/24 06/16/25 spray (Athlete's Foot) aspirin 81 mg tablet 81 mg PO DAILY 04/08/25 06/16/25 Previous Rx's ?Medication ?Instructions ?Recorded tamsulosin 0.4 mg capsule 0.4 mg PO BEDTIME #90 caps 11/13/24 glipizide 10 mg tablet, extended 20 mg (2 x 10 mg) PO DAILY #180 12/18/24 release 24 hr tabs OneTouch Ultra Test (blood sugar #100 ea 01/30/25 diagnostic) semaglutide 7 mg tablet (Rybelsus) 7 mg PO DAILY #90 tabs 03/26/25 naproxen 500 mg tablet 500 mg PO BID PRN pain 90 days 05/08/25 #180 tabs lisinopril 20 mg tablet 20 mg PO DAILY #90 tabs 05/19/25 cephalexin 500 mg capsule 500 mg PO Q6H #28 caps 05/23/25 lancets 33 gauge (OneTouch Delica #100 ea 06/01/25 Plus Lancet) lancets 32 gauge (Easy Touch #100 ea 06/11/25 Safety Lancets) Contour Meter (blood-glucose meter) #1 ea 06/19/25 scopolamine base 1 mg over 3 days 1 patch transdermal Q3D PRN motion 07/07/25 transdermal patch sickness #10 ea Contour Plus Test Strip (blood #300 ea 07/31/25 sugar diagnostic) Allergies Allergy/AdvReac Type Severity Reaction Status Date / Time No Known Allergies Allergy Verified 08/16/25 15:53 [facility] Past Medical History Surgical History History of surgery on arm Family History Family History Father Alcoholism Social History Social History Housing: House Alcohol intake: current Alcohol intake frequency: holidays/special occasions only Patient Tobacco Use Status: Never used Tobacco e-Cigarette/Vaping Use: Never Used Second Hand Smoke Exposure: No Advance Directives: No Advance Directives Information Provided: No service: No Current occupational status: disabled Cognitive needs: No Hearing needs: No Vision needs: Yes (Glasses) Physical Exam ED Vital Signs: BMI result Body Mass Index 30.3 Course Course Course Narrative: This is a rapid medical exam performed by Arlen Thao NP: Additional HPI, ROS, PE not included below will be deferred to primary provider. Patient is a 60y/o M with history of T2DM, CKD 3, HTN, R elbow bursitis presenting to the ED with atraumatic R hand and wrist pain and swelling. States this is not typical for his burisitis. Plan: labs, x-ray Patient left the emergency department before myself or any of the other clinicians could review or explain physical exam findings, test results, need or lack there of for additional testing, treatment options, or a treatment plan. Medical Decision Making Lab Data 08/16/25 16:52 08/16/25 16:52 Labs: Lab Results 08/16/25 Range/Units 16:52 WBC 7.3 (4.8-10.8) X10*3/uL RBC 4.36 L (4.60-5.80) X10*6/uL Hgb 12.2 L (14.0-18.0) g/dl Hct 37.0 L (42.0-52.0) % MCV 84.9 (80.0-98.0) fL MCH 28.0 (27.0-33.0) pg MCHC 33.0 (31.0-36.0) g/dl RDW 14.1 (11.0-16.0) % Plt Count 253 D (160-400) X10*3/uL MPV 10.0 (9.4-12.4) fL Immature Gran % (Auto) 0.5 H (0.0-0.4) % Neut % (Auto) 61.1 (45-73) % Lymph % (Auto) 25.9 (20-40) % Towner % (Auto) 8.3 (2-11) % Eos % (Auto) 3.5 (0-4) % Baso % (Auto) 0.7 (0-2) % Lymph # (Auto) 1.9 (1.2-4.9) X10*3/uL Towner # (Auto) 0.6 (0.1-1.2) X10*3/uL Eos # (Auto) 0.3 (0.0-0.4) X10*3/uL Baso # (Auto) 0.1 (0.0-0.2) X10*3/uL Abs Immat Gran (auto) 0.04 H (0.00-0.03) X10*3/uL Absolute Neuts (auto) 4.5 (2.0-8.3) x10*3/uL Absolute Nucleated RBC 0.000 (0.0-0.012) X10*3/uL Nucleated RBC % (auto) 0.0 (0.0-0.2) /100WBC ESR 22 H (0-15) MM/HR Sodium 138 (135-145) mmol/L Potassium 4.3 (3.3-5.1) mmol/L Chloride 105 (96-108) mmol/L Carbon Dioxide 22 (22-29) mmol/L Anion Gap 15 (12-20) BUN 23 H (9-16) mg/dL Creatinine 1.36 (0.5-1.4) mg/dL Estim Creat Clear Calc 60.6 Estimated GFR 54 Random Glucose 133 H (60-115) mg/dL Uric Acid 6.4 (3.4-7.0) mg/dL Calcium 9.1 (8.4-10.2) mg/dL Total Bilirubin 0.3 (0.0-1.0) mg/dL AST 25 (5-37) U/L ALT 39 (0-40) U/L Alkaline Phosphatase 62 (39-117) U/L C-Reactive Protein 2.24 H (< or = 0.50) mg/dL Total Protein 6.7 (6.5-8.0) g/dL Albumin 4.4 (3.5-5.0) g/dL Discharge Plan Discharge Clinical Impression: Swelling of right hand Patient Disposition: Left W/O Completing Treatment Prescriptions: No Action (DME) OneTouch Ultra Test Strip See Rx Instructions .ROUTE .MEDSUPPLY Qty: 100 3RF Rx Instructions: once daily Rybelsus 7 mg tablet 7 mg PO DAILY Qty: 90 3RF naproxen 500 mg tablet 500 mg PO BID PRN (Reason: pain) 90 Days Qty: 180 1RF lisinopril 20 mg tablet 20 mg PO DAILY Qty: 90 1RF (DME) lancets [OneTouch Delica Plus Lancet] 33 gauge misc See Rx Instructions .ROUTE TID Qty: 100 3RF Rx Instructions: As directed (DME) Easy Touch Safety Lancets 32 gauge misc See Rx Instructions .Route Qty: 100 3RF Rx Instructions: once daily (DME) blood-glucose meter [Contour Meter] Kit See Rx Instructions .Route Qty: 1 0RF Rx Instructions: Contour Plus blue meter LOREN scopolamine base 1 mg over 3 days patch 3 day 1 patch transdermal Q3D PRN (Reason: motion sickness) Qty: 10 1RF (DME) Contour Plus Test Strip Strip See Rx Instructions .Route Qty: 300 3RF Rx Instructions: three times daily aspirin 81 mg tablet 81 mg PO DAILY clotrimazole 1 % cream topical lovastatin 10 mg tablet 10 mg PO DAILY (DME) blood-glucose meter [OneTouch Ultra2 Meter] Misc See Rx Instructions .ROUTE DIRECTED Qty: 1 Rx Instructions: As directed metformin 1,000 mg tablet 1,000 mg PO BID ketoconazole 2 % cream topical Athlete's Foot 2 % aerosol,spray topical DAILY tamsulosin 0.4 mg capsule 0.4 mg PO BEDTIME Qty: 90 3RF glipizide 10 mg tablet extended release 24hr 20 mg PO DAILY Qty: 180 3RF cephalexin 500 mg capsule 500 mg PO Q6H Qty: 28 0RF Discharge Date/Time: 08/16/25 21:23
[2025-08-16 17:38] LABS: MANUAL DIFF FLAG NO
[2025-08-16 17:41] LABS: Hematocrit 37.0 % (42.0-52.0); Hemoglobin 12.2 g/dl (14.0-18.0); Imm Gran Abs Auto 0.04 X10*3/uL (0.00-0.03); Imm Gran Pct Auto 0.5 % (0.0-0.4); Lymphocytes Absolute Auto 1.9 X10*3/uL (1.2-4.9); Mean Corpuscular HGB Conc 33.0 g/dl (31.0-36.0); Mean Corpuscular Hemoglobin 28.0 pg (27.0-33.0); Mean Corpuscular Volume 84.9 fL (80.0-98.0); NRBC Abs Auto 0.000 X10*3/uL (0.0-0.012); NRBC Pct Auto 0.0 /100WBC (0.0-0.2); Platelet Count 253 X10*3/uL (160-400); Red Blood Count 4.36 X10*6/uL (4.60-5.80); White Blood Count 7.3 X10*3/uL (4.8-10.8)
[2025-08-16 18:12] LABS: Alanine Aminotransferase 39 U/L (0-40); Albumin Level 4.4 g/dL (3.5-5.0); Alkaline Phosphatase 62 U/L (39-117); Anion Gap 15 (12-20); Aspartate Amino Transferase 25 U/L (5-37); Blood Urea Nitrogen 23 mg/dL (9-16); Calcium 9.1 mg/dL (8.4-10.2); Carbon Dioxide 22 mmol/L (22-29); Chloride 105 mmol/L (96-108); Creatinine Clr Calc Pharmacy 60.6; Estimated Glomerular Filt Rate 54; Potassium 4.3 mmol/L (3.3-5.1); Sodium 138 mmol/L (135-145); Total Protein 6.7 g/dL (6.5-8.0); Uric Acid 6.4 mg/dL (3.4-7.0)
--- OUTSIDE RECORDS SUMMARY | 2025-08-16 19:46 | XMS_ITS | Clinical Summary ---
Author Organization [facility] [address] [place] [address] [place] [phone] Phone Care Team Providers Care [employer] Name Role Phone Kenny Osullivan MD Primary Care Provider [phone] Allergies No known active allergies Medications naproxen (NAPROSYN) 500 mg tablet TAKE 1 TABLET BY MOUTH 2 TIMES DAILY NEEDED FOR PAIN. WITH MEALS 4 Active miconazole nitrate 2 % aerosol,spray Apply 1 Applicator topically daily. 4 Active clotrimazole (LOTRIMIN) 1 % cream Apply [...] EVERY DAY 90 tablet 1 5 Active OneTouch Ultra Test test strip USE TO TEST BLOOD SUGAR 2 TO 3 TIMES DAILY 300 strip 1 5 Active lovastatin (MEVACOR) 10 mg tablet TAKE 1 TABLET BY MOUTH EVERYDAY AT BEDTIME 90 tablet 1 5 Active metFORMIN (GLUCOPHAGE) [...] [facility] V24, [facility] V28) 04/22/2022 Known medical problems 07/29/2014 Overview (09/16/2024): DM (diabetes mellitus), type 2, uncontrolled, with renal complications HAND CELL TUBER (background diabetic ret inopathy) ([facility] V24, [facility] V28) 07/02/2014 Exotropia, left eye 07/02/2014 Glaucoma suspect of both eyes 07/02/2014 Left amblyopia 07/02/2014 Intellectual disability 10/02/2008 Essential hypertension, benign 04/19/2006 Pure hypercholesterolemia 04/19/2006 Immunizations Immunization Administration Dates Next Due Influenza [...] for your loved ones. For example, child abuse worker or elderly care for an older [...] Care Team (Late st Contact Info) Description 09/01/2025 8:45 AM EST Office Visit Orthopedic Surgery - [place] [address] [phone] John Sanders, DPM [address] [phone] Health Maintenance Due Date Last Done Comments Diabetes: Annual Foot Exam 1977 Diabetes: Annual Retina Eye Exam 1977 Hepatitis B Vaccines (1 of 3 - 19+ 3-dose series) 1986 RSV Immunization Adult Patients (1 - Risk 50-74 years 1-dose series) 2017 Pneumococcal Vaccine: 50+ Years (2 of 2 [...] * Urine Albumin Creatinine Ratio (08/28/2024) Pathologist [facility] Urine Albumin Creatinine Ratio abstracted Historical Provider HEALTH MAINTENANCE Final Result * Annual BMP Blood Test (08/28/2024) Pathologist [facility] Annual BMP Blood Test abstracted [facility] Provider HEALTH MAINTENANCE Final Result * (ABNORMAL) Hemoglobin A1c (08/28/2024) [facility] Hemoglobin A1C 7.2(A) <=6.5 % Blood Venous blood specimen / Unknown Historical Provider LAB BLOOD ORDERABLES Mariam l Result * Lipid panel (08/28/2024) [facility] LDL/HDL Ratio 3 0 - 4 Triglycerides 59 0 - 150 mg/dL Cholesterol 159 0 - 200 mg/dL HDL 60 >=40 mg/dL LDL Cholesterol 88 0 - 100 mg/dL Blood Venous blood specimen / Unknown Historical Provider LAB BLOOD ORDERABLES Mariam l Result * Colonoscopy (08/01/2023) Colonoscopy no interpretation , abstracted Anatomical Region Laterality Modality Other Historical Provider HEALTH MAINTENANCE Final Result * Hepatitis C Screening (02/17/2023) Hepatitis C Screening abstracted Historical Provider HEALTH MAINTENANCE Final Result from Last 3 Months or Most Recently Relevant to Health Maintenance [place] [employer] MEDICARE Care Teams [employer] Relationship Specialty Start Date End Date Kenny Osullivan MD [address] [place] [address] PCP - General 04/05/06
== END 2025-08-16 21:23 | disposition left against medical advice (07) ==
PROVIDERS: Registered Nurse Emergency; Emergency Provider Emergency Medicine; PCP Physician Assistant
DX: R60.0 Localized edema (principal); M25.531 Pain in right wrist; M79.641 Pain in right hand
CPT/HCPCS: 36415; 73110; 73130; 80053; 84550; 85025; 85652; 86140; 99281; 99283

== ENCOUNTER → 2025-08-16 15:55 | Outpatient (BNV) | payer MEDICARE, MEDICAID, SELFPAY | PROVIDERS: PCP Physician Assistant; Visit Provider Radiology Diagnostic Radiology | DX: M79.89 Other specified soft tissue disorders (principal); I70.208 Unspecified atherosclerosis of native arteries of extremities, other extremity | CPT/HCPCS: 73110; 73130 ==

== ENCOUNTER 2025-09-09 08:12 | Outpatient (REF) | payer MEDICARE, MEDICAID, SELFPAY ==
--- NOTE | ~2025-09-09 | XR_ITS ---
EXAMINATION: XR ELBOW, RIGHT CLINICAL INFORMATION: M79.89 - Other specified soft tissue disorders COMPARISON: None available. TECHNIQUE: AP, lateral, and oblique views of the right elbow. FINDINGS: Bone alignment is normal. No fracture or dislocation. Lateral view limited due to positioning. No joint effusion seen. Mild degenerative changes with loss small osteophyte at the triceps tendon insertion to the olecranon. Diffuse soft tissue swelling, greatest medially. Question faint cortical thinning or bone loss of the medial humeral condyle. Arterial soft tissue calcification. No soft tissue foreign body. XR/XR elbow RT min 3V IMPRESSION: Soft tissue swelling. Question cortical thinning or bone loss of the adjacent medial humeral condyle. If there is concern for osteomyelitis, follow-up bone scan or MRI should be considered. Electronically signed by: Beatriz Dimas MD 09/09/2025 09:19 AM RENA
== END 2025-09-09 08:13 | disposition home or self-care (01) ==
LOC: HO.HMGCX 08:12
PROVIDERS: PCP Physician Assistant; Visit Provider Physician Assistant Medical
DX: Z13.89 Encounter for screening for other disorder (principal)
CPT/HCPCS: 73080

== ENCOUNTER 2025-09-09 08:12 | Outpatient (AMB) | payer MEDICARE, MEDICAID, SELFPAY ==
--- NOTE | 2025-09-09 08:14 | MHC.OFFWIV ---
Intake Vital Signs 09/09/25 08:15 Height 5 ft 6 in Weight 187 lb BMI 30.2 BP 140/84 H Blood Pressure Location Lt brachial Position Sitting Pulse 81 Pulse Source Pulse Oximeter Temp 97.8 F Temp Source Oral Pulse Oximetry (%) 98 Oxygen Delivery Method Room Air Intake Visit Reasons: ep right arm swollen since last night Intake Note: Patient presents with right elbow pain & swelling that radiates down into right hand/fingers x2-3 days - patient seen at [facility] on 08/16/25 for the same thing & reports it returned. Patient Tobacco Use Status: Never used Tobacco Allergies No Known Allergies Allergy (Verified 09/09/25 08:19) HPI HPI Comments History of Present Illness Details History of Present Illness - The patient is a 60-year-old male presenting with swelling of the right arm. - The swelling of the hand first occurred in July and recurred last night, with no known injury or trauma. - The patient reports redness and warmth in the arm, which was very hot and red last night. - He has pain in the right elbow. - The elbow pain is described as mild and has been present since the initial swelling episode. - He has pain in the right elbow with swelling to the right forearm and hand. - The patient has been using Bengay and ibuprofen for pain relief, but these did not alleviate the symptoms. - No tingling or numbness was reported, and the patient denies any shoulder or neck pain. - He was seen in the ER on 08/16 for the same pain and swelling. - Previous imaging included an x-ray of the hand, but no ultrasound or further imaging was conducted at that time. - He had labs done as well and it was normal. - He states that the swelling came back. - He denies numbness, tingling, CP, SOB, fever, chills, joint pain, trauma, falls. - He is right hand dominant. - He does not inject medications in the arm and has no open wounds. Physical Exam General: Cooperative, healthy appearing, comfortable, no acute distress and well developed Orientation: Patient oriented x3 Limitations: No limitations Respiratory: Normal respiratory effort and able to speak in complete sentences. Clear to auscultation bilaterally Cardiovascular: Regular rate and rhythm. Normal S1 and S2. No m/r/g noted. Pulses are 2+ on the UE. Skin: No rashes or lesions noted Neuro: Patient oriented x3 Extremities: Swelling noted on the right upper arm from the elbow to the hand. No erythema noted. Tense skin noted, no edema. No warmth noted. Decrease ROM of the elbow. TTP of the right lateral epicondyle and olecranon. FROM of the wrist and digits of the right hand. Supination and pronation is intact. Strength is 5/5 on the UE. 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 FROM of the right shoulder. Patient was informed and verbally consented to the use of an ambient scribe for clinic note documentation during this visit. [facility] Surgical History History of surgery on arm Family History (Reviewed 07/30/25 @ 10: by SID Aguilera) Father Alcoholism Social History Housing: House Alcohol intake: current Alcohol intake frequency: holidays/special occasions only Patient Tobacco Use Status: Never used Tobacco e-Cigarette/Vaping Use: Never Used Second Hand Smoke Exposure: No service: No Current occupational status: disabled Cognitive needs: No Hearing needs: No Vision needs: Yes (Glasses) Review of Systems Const All systems reviewed & are unremarkable except as noted in HPI and below Physical Exam Vital Signs: Last Vital Signs Temp 97.8 F 09/09/25 08:15 Pulse 81 09/09/25 08:15 BP 140/84 H 09/09/25 08:15 Pulse Ox 98 09/09/25 08:15 Oxygen Delivery Method Room Air 09/09/25 08:15 BMI result Body Mass Index 30.2 Results Reviewed Results Reviewed: will review his xray and u/s in the office IMPRESSION: Soft tissue swelling. Question cortical thinning or bone loss of the adjacent medial humeral condyle. If there is concern for osteomyelitis, follow-up bone scan or MRI should be considered. IMPRESSION: No evidence of deep venous thrombosis involving the right upper extremity. Question abnormal lymph node in the upper arm near the basilic vein. This is enlarged with abnormal ultrasound morphology and flow. Clinical correlation recommended. If there is clinical suspicion of infection, recommend short-term ultrasound imaging follow-up in several months. If there is no suspicion of infection, consider further characterization with MRI or tissue sampling. Assessment & Plan Assessment & Plan (1) Swelling of right upper extremity: Code(s): M79.89 - Other specified soft tissue disorders Plan Most likely infection vs bursitis vs DVT vs arthritis plan - rest, ice, and elevation of the right arm - Plan to perform an ultrasound of the arm to assess for underlying causes such as vascular issues. - An x-ray of the elbow will be conducted to evaluate for any structural abnormalities. - Consideration of using heat or ice compresses to manage swelling, depending on the underlying cause. Reassessment after imaging - based on the results of the xray and u/s, will send the patient to the ER for further imaging - concern for osteomyelitis on x-ray and u/s shows inflammed lymph nodes - recommended MRI or bone scan - called the ER for an expect - pt driving to the ER with his Orders: Orders US venous duplex UE RT Today R22.31 - Localized swelling, mass and lump, right upper limb XR elbow RT min 3V Today M79.89 - Other specified soft tissue disorders Coding Level of Care Code Est Pt Level 4 (80513) Diagnoses Swelling of right upper extremity M79.89
[2025-09-09 08:15] VITALS: BP 140/84; PULSE 81; TEMP 36.6; O2SAT 98; BMI 30.2
--- OUTSIDE RECORDS SUMMARY | 2025-09-09 08:15 | XMS_ITS | Clinical Summary ---
Author Organization [facility] [address] [place] [address] [place] [phone] Phone Care Team Providers Care Technical Designer Name Role Phone Kenny Osullivan MD Primary Care Provider [phone] Allergies No known active allergies Medications naproxen [...] retinopathy, without long-term current use of insulin ([facility] V24, [facility] V28) 02/17/2023 Microalbuminuria 02/17/2023 Diabetes mellitus due to und erlying condition with stage 3 chronic kidney disease, without long-term current use of insulin ([facility] V24, [facility] V28) 02/17/2023 Type 2 diabetes mellitus wit h microalbuminuria, without long-term current use of insulin ([facility] V24, [facility] V28) 02/17/2023 Stage 3a chronic kidney disease ([facility] V24, [facility] V28) 04/22/2022 Known medical problems 07/29/2014 Overview (09/16/2024): DM (diabetes mellitus), type 2, uncontrolled, with renal complications 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 For example, child care centre director or elderly care for an older adult? [...] 11/04/2024 8:53 AM EST Plan of Treatment Health Maintenance Due Date Last Done Comments [...] Results * Urine Albumin Creatinine Ratio (08/28/2024) [facility] Urine Albumin Creatinine Ratio abstracted Result [facility] HEALTH MAINTENANCE Final Result * Annual BMP Blood Test (08/28/2024) [facility] Annual BMP Blood Test abstracted Result [facility] HEALTH MAINTENANCE Final Result * (ABNORMAL) Hemoglobin A1c (08/28/2024) [facility] Hemoglobin A1C 7.2(A) <=6.5 % Blood Venous blood specimen / Unknown Result [facility] Provider LAB BLOOD ORDERABLES Mariam l Result * Lipid panel (08/28/2024) [facility] LDL/HDL Ratio 3 0 - 4 Triglycerides 59 0 - 150 mg/dL Cholesterol 159 0 - 200 mg/dL HDL 60 >=40 mg/dL LDL Cholesterol 88 0 - 100 mg/dL Blood Venous blood specimen / Unknown Result [facility] Provider LAB BLOOD ORDERABLES Mariam l Result * Colonoscopy (08/01/2023) [facility] Colonoscopy no interpretation , abstracted Anatomical Region Laterality Modality Other [facility] HEALTH MAINTENANCE Final Result * Hepatitis C Screening (02/17/2023) [facility] Hepatitis C Screening abstracted us Historical Provider HEALTH MAINTENANCE Final Result from Last 3 Months or Most Recently Relevant to Health Maintenance Insurance [place] [address] [place]ICAID [place] Care Teams Technical Designer Relationship Specialty Start Date End Date Kenny Osullivan MD [address] [place] [phone] PCP - General 04/05/06
== END 2025-09-09 09:55 | disposition home or self-care (01) ==
PROVIDERS: PCP Physician Assistant; Visit Provider Physician Assistant Medical
DX: M79.89 Other specified soft tissue disorders (principal)

== ENCOUNTER → 2025-09-09 08:59 | Outpatient (BNV) | payer MEDICARE, MEDICAID, SELFPAY | PROVIDERS: PCP Physician Assistant; Visit Provider Radiology Diagnostic Radiology | DX: R22.31 Localized swelling, mass and lump, right upper limb (principal); M79.89 Other specified soft tissue disorders; M77.8 Other enthesopathies, not elsewhere classified | CPT/HCPCS: 73080; 93971 ==

== ENCOUNTER 2025-09-09 09:10 | Outpatient (REF) | payer MEDICARE, MEDICAID, SELFPAY ==
--- NOTE | ~2025-09-09 | US_ITS ---
EXAMINATION: US TRIPLEX UPPER EXTREMITY, RIGHT CLINICAL INFORMATION: Swelling COMPARISON: Right elbow x-ray from the same day TECHNIQUE: Color-flow triplex imaging with spectral analysis and compression Doppler was performed on the right upper extremity. FINDINGS: The right internal jugular, subclavian, and axillary veins are patent and free of thrombus. The imaged segment of the right brachiocephalic vein is patent. Spectral doppler waveforms are normal. The brachial, basilic, cephalic, radial, and ulnar veins are patent and compressible. There is a soft tissue mass measuring 1.9 x 1 x 1.1 cm in the medial upper arm near the basilic vein. This may represent an abnormal lymph node with an area of cortical thickening and increased cortical flow. There is an adjacent more normal-appearing lymph node measuring 1.1 x 0.8 x 1 cm. This has a thin hypoechoic cortex and thick echogenic fatty hilum and normal hilar flow. US/US venous duplex UE RT IMPRESSION: No evidence of deep venous thrombosis involving the right upper extremity. Question abnormal lymph node in the upper arm near the basilic vein. This is enlarged with abnormal ultrasound morphology and flow. Clinical correlation recommended. If there is clinical suspicion of infection, recommend short-term ultrasound imaging follow-up in several months. If there is no suspicion of infection, consider further characterization with MRI or tissue sampling. Electronically signed by: Beatriz Dimas MD 09/09/2025 09:41 AM EST
== END 2025-09-09 09:11 | disposition home or self-care (01) ==
LOC: HO.HMGCX 09:10
PROVIDERS: Visit Provider Physician Assistant Medical
DX: Z13.89 Encounter for screening for other disorder (principal)
CPT/HCPCS: 93971

== ENCOUNTER 2025-09-09 10:13 | Emergency (ER) | payer MEDICARE, MEDICAID, SELFPAY ==
--- NOTE | ~2025-09-09 | XR_ITS ---
EXAMINATION: XR ELBOW, RIGHT CLINICAL INFORMATION: ?osteo on xray outpatient COMPARISON: September 09, 2025 at 9:14 AM. TECHNIQUE: AP, lateral, and oblique views of the right elbow. FINDINGS: No acute cortical disruption. No gross malalignment. No lytic or blastic lesions. Soft tissue edema pattern. No overt subcutaneous emphysema. Small exostosis at the olecranon head. No gross joint effusion. . XR/XR elbow RT min 3V IMPRESSION: Soft tissue edema pattern without gross subcutaneous emphysema. No acute fracture or dislocation. No osteomyelitis. Enthesopathy, triceps tendon. Electronically signed by: Chaparro Hays MD 09/09/2025 02:15 PM EST
[2025-09-09 10:39] VITALS: BP 173/86; PULSE 74; RESP 20; TEMP 36.3; O2SAT 98; BMI 32.9
--- NOTE | 2025-09-09 10:39 | ED.GENADULT ---
HPI - General Adult General Chief complaint: Extremity Injury, Upper Stated complaint: MRI sent from Time Seen by Provider: 09/09/25 15:05 Source: patient and RN notes reviewed Mode of arrival: ambulatory Limitations: no limitations History of Present Illness ED Provider: Yulisa Hazel PA-C HPI narrative: This is a 60-year-old male, with a past medical history of type 2 diabetes, CKD, hypertension, right elbow bursitis, who presents emergency department from urgent care with concerns for swelling of the right arm. Patient initially reported to the emergency room on August 16 as he was endorsing swelling to his right arm. He states that he has had no trauma or injury. He is right-hand dominant. No repetitious movements. Patient states that he returned from a cruise just prior to this emergency room visit. He states that he thought his symptoms would improve therefore he never followed up and left without completing treatment. Patient states that his symptoms did not improve therefore he went to an urgent care this afternoon, and was told to go to the emergency room for additional images as the x-ray was concerning for soft cortical bone loss question of osteomyelitis, and also had an ultrasound revealing a abnormal lymph node in the upper arm near the basilic vein with enlargement and morphology and flow. Patient reports that they area is painful, reports he is unable to fully extend his right elbow secondary to pain and inflammation. MD complaint: Right arm pain and swelling Onset (ago): day(s) Relieving factors: immobilization Exacerbating factors: movement Treatments prior to arrival: none Related Data Home Medications ?Medication ?Instructions ?Recorded ?Confirmed blood-glucose meter (OneTouch #1 ea 11/13/24 06/16/25 Ultra2 Meter) clotrimazole 1 % topical cream appl topical 11/13/24 06/16/25 ketoconazole 2 % topical cream appl topical 11/13/24 06/16/25 lovastatin 10 mg tablet 10 mg PO DAILY 11/13/24 06/16/25 metformin 1,000 mg tablet 1,000 mg PO BID 11/13/24 06/16/25 miconazole nitrate 2 % topical spray topical DAILY 11/13/24 06/16/25 spray (Athlete's Foot) aspirin 81 mg tablet 81 mg PO DAILY 04/08/25 06/16/25 Previous Rx's ?Medication ?Instructions ?Recorded tamsulosin 0.4 mg capsule 0.4 mg PO BEDTIME #90 caps 11/13/24 glipizide 10 mg tablet, extended 20 mg (2 x 10 mg) PO DAILY #180 12/18/24 release 24 hr tabs OneTouch Ultra Test (blood sugar #100 ea 01/30/25 diagnostic) semaglutide 7 mg tablet (Rybelsus) 7 mg PO DAILY #90 tabs 03/26/25 naproxen 500 mg tablet 500 mg PO BID PRN pain 90 days 05/08/25 #180 tabs lisinopril 20 mg tablet 20 mg PO DAILY #90 tabs 05/19/25 lancets 33 gauge (OneTouch Delica #100 ea 06/01/25 Plus Lancet) lancets 32 gauge (Easy Touch #100 ea 06/11/25 Safety Lancets) Contour Meter (blood-glucose meter) #1 ea 06/19/25 scopolamine base 1 mg over 3 days 1 patch transdermal Q3D PRN motion 07/07/25 transdermal patch sickness #10 ea Contour Plus Test Strip (blood #300 ea 07/31/25 sugar diagnostic) prednisone 20 mg tablet 40 mg (2 x 20 mg) PO DAILY 4 days 09/09/25 #8 tabs Allergies Allergy/AdvReac Type Severity Reaction Status Date / Time No Known Allergies Allergy Verified 09/09/25 10:42 Review of Systems Review of Systems: Constitutional : No Fever, No Chills ENT/Mouth : No sore throat, No Rhinorrhea Eyes: No Eye Pain, No Swelling, No Redness Cardiovascular : No Chest Pain, No SOB Respiratory : No Cough, No Sputum Gastrointestinal : No Nausea, No Vomiting, No Diarrhea, No abdominal Pain Genitourinary : No Dysuria, No Hematuria Musculoskeletal : + joint pain, No Myalgias,+Joint Swelling Skin : No Skin Lesions Neuro : No Weakness, No Numbness, No Headache All other systems reviewed and are negative Yes all other systems are reviewed and are negative Constitutional: Constitutional: Reports as per [facility] Past Medical History Surgical History History of surgery on arm Family History Family History Father Alcoholism Social History Social History (Reviewed 07/30/25 @ 10:26 by MAGY Aguilera Housing: House Alcohol intake: current Alcohol intake frequency: holidays/special occasions only Patient Tobacco Use Status: Never used Tobacco Smoked in Last 30 Days: Yes e-Cigarette/Vaping Use: Never Used Second Hand Smoke Exposure: No Use of substances other than those prescribed or required for medical reasons: No Advance Directives: No Advance Directives Information Provided: Yes Do you have a plan to hurt others: No Plan service: No Current occupational status: disabled Cognitive needs: No Hearing needs: No Vision needs: Yes (Glasses) Physical Exam ED Vital Signs: Vital Signs - 24 hr 09/09/25 10:39 09/09/25 16:53 Temperature 97.3 F 98 F Pulse Rate 74 76 Respiratory Rate 20 18 Blood Pressure 173/86 H 167/95 H Pulse Oximetry 98 98 Oxygen Delivery Method Room Air Room Air BMI result Body Mass Index 32.9 Const General: cooperative, comfortable and no acute distress Orientation/consciousness: patient oriented x3 Limitations: no limitations HENMT Head: Yes normal to inspection, Yes normocephalic and Yes atraumatic Ears: hearing grossly normal bilaterally General nose exam: Normal external nose present Face and sinus: Yes normal facial exam Mouth: Normal oral and palatal mucosa present, oropharynx normal and moist mucous membranes Throat: Yes posterior oropharynx normal Eyes General: appearance normal, both eyes and all related structures Eyelids: Yes eyelids normal Conjunctivae: conjunctivae normal Sclerae: sclerae normal Pupils: Equal, round and reactive pupils present EOM: EOMs intact bilaterally Neck Neck: Yes normal visual inspection, Yes full ROM and Yes no lymphadenopathy Lymphatic: no lymphadenopathy noted Chest Chest palpation & inspection: normal inspection of the chest Resp Effort & Inspection: normal respiratory effort and able to speak in complete sentences Auscultation: clear to auscultation bilaterally, no crackles, no rales, no rhonchi and no wheezes Cardio Rate: regular rate Rhythm: regular rhythm Heart sounds: S1 normal heart sound present and S2 normal heart sound present GI Inspection: Yes normal to inspection Skin General skin exam: no rashes or lesions noted Trauma: no lacerations or abrasions Wounds: no wounds Neuro General: patient oriented x3 and moves all extremities Cranial nerves: Yes Equal, round and reactive pupils present Extrem Other: Right elbow with tenderness palpation along the medial and lateral epicondyle, no overlying skin changes. No erythema. Able to flex and extend, and unable to fully extend right elbow secondary to pain. Distal biceps is intact. Strong radial pulse. General: Yes normal to inspection Right upper extremity: normal to inspection Left upper extremity: normal to inspection Right lower extremity: normal to inspection Left lower extremity: normal to inspection Course Course Course Narrative: This is a rapid medical exam performed by Arlen Thao NP: Additional HPI, ROS, PE not included below will be deferred to primary provider. Patient is a 60y/o M pmhx T2DM, CKD 3, HTN, mild developmental delay, hx of R elbow bursitis presenting from walk-in with 2 days of right arm pain, swelling, warmth. Seen at urgent care, had U/S and x-ray there, was referred here for MRI/further evaluation. Plan: labs including cxs, will defer additional imaging to primary provider Medications Administered Discontinued Medications Generic Name Dose Route Start Last Admin Trade Name Freq PRN Reason Stop Dose Admin Prednisone 40 mg 09/09/25 16:39 09/09/25 16:50 Prednisone 20 Mg Tablet PO 09/09/25 16:40 40 mg ONCE ONE Administration Medical Decision Making Medical Decision Making [facility] Narrative: This is a 60-year-old male, with a past medical history of type 2 diabetes, CKD, hypertension, right elbow bursitis, who presents emergency department from urgent care with concerns for swelling of the right arm. Patient has no overlying skin changes or warmth. But does have notable swelling starting at the elbow extending distally into the fingers. He has full range of motion of the wrist and fingers, strong radial pulse. Capillary refill less than 2 seconds. Does have tenderness palpation as well as some edema noted primarily overlying the lateral and medial epicondyle with tenderness. Unable to fully extend secondary to pain and inflammation. Labs were obtained, he has no leukocytosis, he does have elevation in CRP at 10.1, and ESR at 36. X-ray of the elbow was obtained outpatient revealing soft tissue swelling, with a question cortical thickening or bone loss of the adjacent medial humeral condyle. Ultrasound revealing a abnormal lymph node in the upper arm near the basilic vein. I discussed this case with my attending physician, Dr. Dawson, who also evaluated patient. Patient has no profound erythema, redness, however he does have tenderness in edema noted overlying the right elbow. This is consistent with bursitis. Will treat as inflammatory process, holding off on antibiotics has this does not appear to be a septic joint and patient has no evidence of erythema on exam. He has no fevers or chills. Given history of diabetes, will treat with prednisone however stressed the importance of monitoring sugar very closely. He understands and agrees with plan. He will follow-up outpatient with his PCP. I also advised patient to follow-up with orthopedics if his symptoms persist. Of note he does report he plays video games and uses his right hand primarily, this repetitious movement may be the reason for his current presentation. Patient and mother at bedside understand and agree with this plan. Patient stable for discharge. Differential Diagnosis Differential Diagnoses: The differential diagnosis associated with the presentation includes Bursitis, tendonitis, DVT - less likely, septic arthritis Admission/Observation Consideration of admission/observation: Escalation of care including admission/observation considered Lab Data [facility] Lab Attestation statement: I reviewed the patient's lab results. See [facility] 09/09/25 11:33 09/09/25 11:33 Labs: Lab Results 09/09/25 09/09/25 Range/Units 11:32 11:33 WBC 5.5 (4.8-10.8) X10*3/uL RBC 4.52 L (4.60-5.80) X10*6/uL Hgb 12.6 L (14.0-18.0) g/dl Hct 38.9 L (42.0-52.0) % MCV 86.1 (80.0-98.0) fL MCH 27.9 (27.0-33.0) pg MCHC 32.4 (31.0-36.0) g/dl RDW 14.4 (11.0-16.0) % Plt Count 169 D (160-400) X10*3/uL MPV 10.2 (9.4-12.4) fL Immature Gran % (Auto) 0.5 H (0.0-0.4) % Neut % (Auto) 61.2 (45-73) % Lymph % (Auto) 22.3 (20-40) % Piatt % (Auto) 12.0 H (2-11) % Eos % (Auto) 3.3 (0-4) % Baso % (Auto) 0.7 (0-2) % Lymph # (Auto) 1.2 (1.2-4.9) X10*3/uL Piatt # (Auto) 0.7 (0.1-1.2) X10*3/uL Eos # (Auto) 0.2 (0.0-0.4) X10*3/uL Baso # (Auto) 0.0 (0.0-0.2) X10*3/uL Abs Immat Gran (auto) 0.03 (0.00-0.03) X10*3/uL Absolute Neuts (auto) 3.4 (2.0-8.3) x10*3/uL Absolute Nucleated RBC 0.000 (0.0-0.012) X10*3/uL Nucleated RBC % (auto) 0.0 (0.0-0.2) /100WBC ESR 36 H (0-15) MM/HR Sodium 138 (135-145) mmol/L Potassium 4.6 (3.3-5.1) mmol/L Chloride 104 (96-108) mmol/L Carbon Dioxide 26 (22-29) mmol/L Anion Gap 13 (12-20) BUN 14 (9-16) mg/dL Creatinine 1.16 (0.5-1.4) mg/dL Estim Creat Clear Calc 71.4 Estimated GFR > 60 Random Glucose 140 H (60-115) mg/dL Lactic Acid 1.7 (0.5-2.0) mmol/L Calcium 9.3 (8.4-10.2) mg/dL Total Bilirubin 0.5 (0.0-1.0) mg/dL AST 20 (5-37) U/L ALT 18 (0-40) U/L Alkaline Phosphatase 63 (39-117) U/L C-Reactive Protein 10.15 H (< or = 0.50) mg/dL Total Protein 6.8 (6.5-8.0) g/dL Albumin 4.3 (3.5-5.0) g/dL Radiology Impression Discussion of test interpretation with radiology: I have reviewed the radiologist's reading. Radiologist Impression: FINDINGS: The right internal jugular, subclavian, and axillary veins are patent and free of thrombus. The imaged segment of the right brachiocephalic vein is patent. Spectral doppler waveforms are normal. The brachial, basilic, cephalic, radial, and ulnar veins are patent and compressible. There is a soft tissue mass measuring 1.9 x 1 x 1.1 cm in the medial upper arm near the basilic vein. This may represent an abnormal lymph node with an area of cortical thickening and increased cortical flow. There is an adjacent more normal-appearing lymph node measuring 1.1 x 0.8 x 1 cm. This has a thin hypoechoic cortex and thick echogenic fatty hilum and normal hilar flow. US/US venous duplex UE RT IMPRESSION: No evidence of deep venous thrombosis involving the right upper extremity. Question abnormal lymph node in the upper arm near the basilic vein. This is enlarged with abnormal ultrasound morphology and flow. Clinical correlation recommended. If there is clinical suspicion of infection, recommend short-term ultrasound imaging follow-up in several months. If there is no suspicion of infection, consider further characterization with MRI or tissue sampling. Electronically signed by: Beatriz Dimas MD 09/09/2025 09:41 AM [employer] Dictated By: Beatriz Dimas MD US/US venous duplex UE RT IMPRESSION: No evidence of deep venous thrombosis involving the right upper extremity. Question abnormal lymph node in the upper arm near the basilic vein. This is enlarged with abnormal ultrasound morphology and flow. Clinical correlation recommended. If there is clinical suspicion of infection, recommend short-term ultrasound imaging follow-up in several months. If there is no suspicion of infection, consider further characterization with MRI or tissue sampling. Electronically signed by: Beatriz Dimas MD 09/09/2025 09:41 AM [employer] Dictated By: Beatriz Dimas MD Independent Historian Clinical information obtained from an independent historian. History obtained from or confirmed by: Parent Discharge Plan Discharge Clinical Impression: Bursitis Patient Disposition: Home, Self-Care Instructions: Elbow Bursitis (ED) Additional Instructions: You were seen in the emergency department and your symptoms and physical exam is concerning for bursitis. Bursitis is painful inflammation in the small fluid-filled sacs that cushion joints. Can be caused by overuse, or prolonged pressure on the joint. Please use Paul wrap for compression and support. Please take prescribed prednisone as directed. Please monitor your sugars very closely as this can cause an increase in your sugar. We gave you your 1st dose in the department today. If any new or worsening symptoms occur including but not limited to increased redness, swelling, please seek emergent care. Please follow-up with your primary care physician, call tomorrow to make an appointment. I am also referring you to the seo marketing specialist if your symptoms persist after completing treatment of prednisone. Prescriptions: New prednisone 20 mg tablet 40 mg PO DAILY 4 Days Qty: 8 0RF No Action (DME) OneTouch Ultra Test Strip See Rx Instructions .ROUTE .MEDSUPPLY Qty: 100 3RF Rx Instructions: once daily Rybelsus 7 mg tablet 7 mg PO DAILY Qty: 90 3RF naproxen 500 mg tablet 500 mg PO BID PRN (Reason: pain) 90 Days Qty: 180 1RF lisinopril 20 mg tablet 20 mg PO DAILY Qty: 90 1RF (DME) lancets [OneTouch Delica Plus Lancet] 33 gauge misc See Rx Instructions .ROUTE TID Qty: 100 3RF Rx Instructions: As directed (DME) Easy Touch Safety Lancets 32 gauge misc See Rx Instructions .Route Qty: 100 3RF Rx Instructions: once daily (DME) blood-glucose meter [Contour Meter] Kit See Rx Instructions .Route Qty: 1 0RF Rx Instructions: Contour Plus blue meter LOREN scopolamine base 1 mg over 3 days patch 3 day 1 patch transdermal Q3D PRN (Reason: motion sickness) Qty: 10 1RF (DME) Contour Plus Test Strip Strip See Rx Instructions .Route Qty: 300 3RF Rx Instructions: three times daily aspirin 81 mg tablet 81 mg PO DAILY clotrimazole 1 % cream topical lovastatin 10 mg tablet 10 mg PO DAILY (DME) blood-glucose meter [OneTouch Ultra2 Meter] Misc See Rx Instructions .ROUTE DIRECTED Qty: 1 Rx Instructions: As directed metformin 1,000 mg tablet 1,000 mg PO BID ketoconazole 2 % cream topical Athlete's Foot 2 % aerosol,spray topical DAILY tamsulosin 0.4 mg capsule 0.4 mg PO BEDTIME Qty: 90 3RF glipizide 10 mg tablet extended release 24hr 20 mg PO DAILY Qty: 180 3RF Referrals: [facility] [Provider Group] Jairo Castro PA-C [Primary Care Provider, Internal Medicine] Interventions: ED Discharge Assessment Last Done: 09/09/25 16:53 Discharge Date/Time: 09/09/25 16:54 Print Language: Bahraini
[2025-09-09 11:38] LABS: MANUAL DIFF FLAG NO
[2025-09-09 11:39] LABS: Hematocrit 38.9 % (42.0-52.0); Hemoglobin 12.6 g/dl (14.0-18.0); Imm Gran Abs Auto 0.03 X10*3/uL (0.00-0.03); Imm Gran Pct Auto 0.5 % (0.0-0.4); Lymphocytes Absolute Auto 1.2 X10*3/uL (1.2-4.9); Mean Corpuscular HGB Conc 32.4 g/dl (31.0-36.0); Mean Corpuscular Hemoglobin 27.9 pg (27.0-33.0); Mean Corpuscular Volume 86.1 fL (80.0-98.0); NRBC Abs Auto 0.000 X10*3/uL (0.0-0.012); NRBC Pct Auto 0.0 /100WBC (0.0-0.2); Platelet Count 169 X10*3/uL (160-400); Red Blood Count 4.52 X10*6/uL (4.60-5.80); White Blood Count 5.5 X10*3/uL (4.8-10.8)
[2025-09-09 12:02] LABS: Alanine Aminotransferase 18 U/L (0-40); Albumin Level 4.3 g/dL (3.5-5.0); Alkaline Phosphatase 63 U/L (39-117); Anion Gap 13 (12-20); Aspartate Amino Transferase 20 U/L (5-37); Blood Urea Nitrogen 14 mg/dL (9-16); Calcium 9.3 mg/dL (8.4-10.2); Carbon Dioxide 26 mmol/L (22-29); Chloride 104 mmol/L (96-108); Creatinine Clr Calc Pharmacy 71.4; Estimated Glomerular Filt Rate > 60; Potassium 4.6 mmol/L (3.3-5.1); Sodium 138 mmol/L (135-145); Total Protein 6.8 g/dL (6.5-8.0)
[2025-09-09 12:27] LABS: Erythrocyte Sedimentation Rate 36 MM/HR (0-15)
--- OUTSIDE RECORDS SUMMARY | 2025-09-09 16:44 | XMS_ITS | Clinical Summary ---
Author Organization [facility] Address [address] [phone] Phone Care Team Providers Care Educational Technology Coordinator Name Role Phone Kenny Osullivan MD Primary Care Provider [phone] Social History Tobacco Use Types Packs/Day Years Used Date Smoking Tobacco: Never Assessed Sex and Gender Information Value Date Recorded Sex Assigned at Not on file Legal Sex Male 8:08 PM EST Gender Identity Not on file Sexual Orientation Not on file Plan of Treatment Upcoming Encounters Date Type Department Care Team (Late st Contact Info) Description 11/07/2025 9:30 AM EST Office Visit [facility] [address] [phone] Silvio Person MD [address] [phone] Health Maintenance Due Date Last Done Comments Hepatitis B Vaccine (1 of 3 - 19+ 3-dose series) 1986 Colorectal Cancer Screening: Annual FOBT 2016 Colorectal Cancer Screening: Colonoscopy 2016 Colorectal Cancer Screening: Sigmoidoscopy 2016 Pneumococcal Vaccine: 50+ Ye ars (2 of 2 - PCV) 09/06/2018 09/06/2017 Influenza Vaccine (#1) 2025 08/08/2007, 2005 Diabetes: Hemoglobin A1C 09/05/2025 08/28/2024 Diabetes: Ophthalmology Exam 09/05/2025 07/02/2014 Diabetes: Pedal Pulse Checked 09/05/2025 Diabetes: Sensory Foot Exam 09/05/2025 Diabetes: Visual Foot Exam 09/05/2025 Insurance UHC Medicare Medicaid [place] Care Teams Educational Technology Coordinator Relationship Specialty Start Date End Date Kenny Osullivan MD [address] [place] [phone] PCP - General Internal Medicine 09/05/25
--- OUTSIDE RECORDS SUMMARY | 2025-09-09 16:44 | XMS_ITS | Clinical Summary ---
Author Organization [facility] [address] [place] [address] [place] [phone] Phone Care Team Providers Care Customer Orders Clerk Name Role Phone Kenny Osullivan MD Primary Care Provider [phone] Allergies No known active allergies Medications naproxen [...] retinopathy, without long-term current use of insulin ([facility] V24, [facility] V28) 02/17/2023 Microalbuminuria 02/17/2023 Diabetes mellitus due to und erlying condition with stage 3 chronic kidney disease, without long-term current use of insulin ([facility] V24, [facility] V28) 02/17/2023 Type 2 diabetes mellitus wit h microalbuminuria, without long-term current use of insulin ([facility] V24, [facility] V28) 02/17/2023 Stage 3a chronic kidney disease ([facility] V24, [facility] V28) 04/22/2022 Known medical problems 07/29/2014 Overview (09/16/2024): DM (diabetes mellitus), type 2, uncontrolled, with renal complications CHEESE WEIGHER (background diabetic ret inopathy) ([facility] V24, [facility] V28) 07/02/2014 Exotropia, left eye 07/02/2014 Glaucoma [...] care for your loved ones. For example, childcare aide or elderly care for an older adult? [...] Results * Urine Albumin Creatinine Ratio (08/28/2024) [facility] Urine Albumin Creatinine Ratio abstracted Result [facility] HE[facility] MAINTENANCE Final Result * Annual BMP Blood Test (08/28/2024) [facility] Annual BMP Blood Test abstracted Result [facility] Provider HEALTH MAINTENANCE Final Result * (ABNORMAL) Hemoglobin A1c (08/28/2024) [facility] Hemoglobin A1C 7.2(A) <=6.5 % Blood Venous blood specimen / Unknown Result [facility] Provider LAB BLOOD ORDERABLES Mariam l Result * Lipid panel (08/28/2024) [place] [facility] LDL/HDL Ratio 3 0 - 4 Triglycerides 59 0 - 150 mg/dL Cholesterol 159 0 - 200 mg/dL HDL 60 >=40 mg/dL LDL Cholesterol 88 0 - 100 mg/dL Blood Venous blood specimen / Unknown Result [facility] Provider LAB BLOOD ORDERABLES Mariam l Result * Colonoscopy (08/01/2023) [facility] Colonoscopy no interpretation , abstracted Anatomical Region Laterality Modality Other [facility] HEALTH MAINTENANCE Final Result * Hepatitis C Screening (02/17/2023) [facility] Hepatitis C Screening abstracted us Historical Provider HEALTH MAINTENANCE Final Result from Last 3 Months or Most Recently Relevant to Health Maintenance Insurance [employer] MEDICARE [place]ICAID [place] Care Teams Customer Orders Clerk Relationship Specialty Start Date End Date Kenny Osullivan MD [address] [place] [phone] PCP - General 04/05/06
[2025-09-09 16:53] VITALS: BP 167/95; PULSE 76; RESP 18; TEMP 36.6; O2SAT 98
== END 2025-09-09 16:54 | disposition home or self-care (01) ==
PROVIDERS: Registered Nurse Emergency; Emergency Provider Emergency Medicine; PCP Physician Assistant
DX: M71.9 Bursopathy, unspecified (principal); I12.9 Hypertensive chronic kidney disease with stage 1 through stage 4 chronic kidney disease, or unspecified chronic kidney disease; E11.22 Type 2 diabetes mellitus with diabetic chronic kidney disease; N18.9 Chronic kidney disease, unspecified; R22.31 Localized swelling, mass and lump, right upper limb
CPT/HCPCS: 36415; 73080; 80053; 83605; 85025; 85652; 86140; 87040; 93971; 99212; 99284

== ENCOUNTER 2025-09-13 06:05 | Inpatient (IN) | payer MEDICARE, MEDICAID, SELFPAY ==
[2025-09-13] VITALS (10 sets, daily range): BP systolic 113–176; BP diastolic 66–104; PULSE 80–115; RESP 11–20; TEMP 36.3–39.1; O2SAT 86–97; BMI 33.3
--- NOTE | ~2025-09-13 | CT_ITS ---
CLINICAL HISTORY: trauma CT cervical spine without contrast Comparison: None provided Findings: Vosi-kv-tmocbuwu multilevel marginal osteophyte formation disc space narrowing is present, most prominent at C5/6 and C6/7. Vertebral body heights are well-maintained. No acute fracture or subluxation is identified. Alignment is within normal limits. There is no canal stenosis. Coarse calcifications are seen in bilateral thyroid lobes. The lung apices are clear. IMPRESSION: 1. No acute osseous abnormality is identified. 2. Mcjp-sy-lpxxbhjx degenerative changes in the cervical spine. This document has been electronically signed by: Lucero Pizarro on 09/13/2025 09:25:23
--- NOTE | ~2025-09-13 | XR_ITS ---
CLINICAL HISTORY: chest pain 1 view chest x-ray Comparison: None provided Findings: No consolidation or effusion. The heart is normal in size for technique. No acute fracture. IMPRESSION: No acute cardiopulmonary abnormality. This document has been electronically signed by: Lucero Pizarro on 09/13/2025 08:42:25
--- NOTE | ~2025-09-13 | CT_ITS ---
CLINICAL HISTORY: trauma CT head without contrast Comparison: None provided Findings: Mild bilateral periventricular hypodensities are present. Remote bilateral basal ganglia lacunar infarcts are present. There is no evidence of hemorrhage, mass, mass effect, or hydrocephalus. Mild mucosal thickening is seen in the left maxillary sinus and left ethmoid air cells. There is opacification of left mastoid air cells. The globes are intact. There is no acute fracture. IMPRESSION: 1. No acute intracranial findings. 2. Mild chronic microvascular ischemic disease. 3. Left maxillary sinus, left ethmoid air cell, and left mastoid air cell disease. This document has been electronically signed by: Lucero Pizarro on 09/13/2025 09:22:01
--- NOTE | 2025-09-13 06:11 | ECG_ITS ---
Test Reason : SEPSIS? Blood Pressure : */* mmHG Vent. Rate : 102 BPM Atrial Rate : 102 BPM P-R Int : 170 ms QRS Dur : 82 ms QT Int : 348 ms P-R-T Axes : 11 10 66 degrees QTcB Int : 453 ms Sinus tachycardia Otherwise normal ECG No previous ECGs available Referred By: Vincent Boggs Electronically Signed By: MIKE SEALS MD
--- NOTE | 2025-09-13 06:14 | ED_ITS ---
HPI - Fall General Chief Complaint: Fall Stated Complaint: fall Time Seen by Provider: 09/13/25 06:10 Source: patient and EMS Mode of arrival: EMS History of Present Illness HPI Narrative: This is 60 years old man with history of type 2 diabetes, CKD stage III, hypertension, obesity and development delayed brought in by ambulance because multiple fall. Patient has been weak and he has been falling on multiple time with the patient lives with the mother and mother called 911. He denies any headache neck pain extremity pain. He was recently placed on prednisone for swelling of the jaw into and was discontinued because of the elevated blood sugar. MD complaint: fall Onset (ago): hour(s) (1) Fall from: standing Fall witnessed: yes, by family (mother) Place fall occurred: home Loss of consciousness: none Prolonged down time: no Symptoms prior to fall: none Context: other (Weakness) Related Data Home Medications ?Medication ?Instructions ?Recorded ?Confirmed blood-glucose meter (LagoonTouch #1 ea 11/13/24 06/16/25 Ultra2 Meter) clotrimazole 1 % topical cream appl topical 11/13/24 0 06/16/25 ketoconazole 2 % topical cream appl topical 11/13/24 0 06/16/25 lovastatin 10 mg tablet 10 mg PO DAILY 11/13/2405/30 metformin 1,000 mg tablet 1,000 mg PO BID 11/13/24 miconazole nitrate 2 % topical spray topical DAILY 06/16/25 spray (Athlete's Foot) aspirin 81 mg tablet 81 mg PO DAILY 04/08/2505/30 Previous Rx's ?Medication ?Instructions ?Recorded tamsulosin 0.4 mg capsule 0.4 mg PO BEDTIME #90 caps 0 11/13/24 OneTouch Ultra Test (blood sugar #100 ea 01/30/25 diagnostic) semaglutide 7 mg tablet (Rybelsus) 7 mg PO DAILY #90 t abs 03/26/25 naproxen 500 mg tablet 500 mg PO BID PRN pain 90 da ys 05/08/25 #180 tabs lisinopril 20 mg tablet 20 mg PO DAILY #90 tabs 04/30 11/23 lancets 33 gauge (OneTouch Delica #100 ea 06/01/25 Plus Lancet) lancets 32 gauge (Easy Touch #100 ea 06/11/25 Safety Lancets) Contour Meter (blood-glucose meter) #1 ea 06/19/25 scopolamine base 1 mg over 3 days 1 patch transdermal Q3D PRN motion 07/07/25 transdermal patch sickness #10 ea Contour Plus Test Strip (blood #300 ea 07/31/25 sugar diagnostic) prednisone 20 mg tablet 40 mg (2 x 20 mg) PO DAILY 4 days 09/09/25 #8 tabs glipizide 10 mg tablet, extended 20 mg (2 x 10 mg) PO DAILY #180 09/10/25 release 24 hr tabs Allergies Allergy/AdvReac Type Severity Reaction Status Date / Time No Known Allergies Allergy Verified 09/13/25 06:15 Review of Systems 2 Review of Systems: Yes all other systems are reviewed and are negative [facility] Past Medical History Attestation statement: The following information was validated with the patient. [facility] Narrative: Type 2 diabetes, stage 3 chronic kidney disease, hypertension, obesity, developmental delayed Surgical History History of surgery on arm Family History Family History Father Alcoholism Social History Social History Housing: House Alcohol intake: current Alcohol intake frequency: holidays/special occasions only Patient Tobacco Use Status: Never used Tobacco Smoked in Last 30 Days: No e-Cigarette/Vaping Use: Never Used Second Hand Smoke Exposure: No Use of substances other than those prescribed or required for medical reasons: No Advance Directives: Yes Advance Directives Information Provided: Yes Advance Directives on File: No Do you have a plan to hurt others: No Plan service: No Current occupational status: disabled Cognitive needs: No Hearing needs: No Vision needs: Yes (Glasses) Physical Exam 2 Exam: Exam: Not acute distress comfortable in the stretcher Vital Signs: Vital Signs: Last Vital Signs Temp 98.1 F 09/13/25 07:46 Pulse 89 09/13/25 08:06 Resp 14 09/13/25 08:06 BP 116/71 09/13/25 08:06 Pulse Ox 96 09/13/25 08:05 O2 Del Method Nasal Cannula 09/13/25 08:05 O2 Flow Rate 2 09/13/25 08:05 BMI result Body Mass Index 33.3 Const: General: cooperative, comfortable, no acute distress and well developed Nutritional Appearance: well nourished Orientation/consciousness: oriented to time HEENT: Head: Yes normal to inspection Ears: hearing grossly normal bilaterally General nose exam: Normal external nose present Face and sinus: Yes normal facial exam Mouth: Normal oral and palatal mucosa present Throat: Yes posterior oropharynx normal Neck: Neck: Yes normal visual inspection and Yes full ROM Chest: Chest palpation & inspection: normal inspection of the chest Resp: Effort & Inspection: normal respiratory effort and able to speak in complete sentences Cardio: Jugular venous distension: no JVD Rate: regular rate Rhythm: r egular rhythm GI: Inspection: Yes normal to inspection Palpation (GI): Soft to palpation, not firm and nontender Skin: General skin exam: no rashes or lesions noted and elasticity normal L esions: no lesions Rashes: no rashes Neuro: General: oriented to time Cranial nerves: Yes CN's II-XII intact bilaterally Course Reevaluation(s) Reevaluation #1: Mother in the room Time: 07:21 Medications Administered Generic Name Dose Route Start Last Admin Trade Name Freq PRN Reason Stop Dose Admin Doxycycline Hyclate 100 mg/ 250 mls @ 166.67 mls/hr 09/13/25 09:03 09/13/25 09:23 Sodium Chloride IV 09/13/25 10:32 166.67 mls/hr ONCE ONE Administration Discontinued Medications Generic Name Dose Route Start Last Admin Trade Name Freq PRN Reason Stop Dose Admin Acetaminophen 975 mg 09/13/25 06:24 09/13/25 06:43 Acetaminophen 325 Mg Tablet PO 09/13/25 06:25 975 mg ONCE ONE Administration Cefepime HCl 2 gm in 50 mls @ 100 mls/hr 09/13/25 06:25 09/13/25 07:07 Maxipime IV 09/13/25 06:54 Infused ONCE ONE Infusion Sodium Chloride 1,000 mls @ 999 mls/hr 09/13/25 07:00 09/13/25 08:04 Ns IVCONT 09/13/25 08:00 Infused .Q1H1M SCOTTIE Infusion Oseltamivir Phosphate 75 mg 09/13/25 07:59 09/13/25 08:05 Oseltamivir Phosphate 75 Mg Capsule PO 09/13/25 08:00 75 mg ONCE ONE Administration Medical Decision Making Medical Decision Making [facility] Narrative: Patient presented to the emergency room after multiple falls we will check labs imaging Differential Diagnosis Differential Diagnoses: The differential diagnosis associated with the presentation includes Broad differential diagnosis which includes subdural hematoma,/CVA/anemia/hyponatremia hypernatremia urinary tract infection Admission/Observation Consideration of admission/observation: Escalation of care including admission/observation considered Lab Data [facility] Lab Attestation statement: I reviewed the patient's lab results. 09/13/25 06:28 09/13/25 06:28 Labs: Lab Results 09/13/25 09/13/25 Range/Units 06:28 09:04 WBC 7.2 (4.8-10.8) X10*3/uL RBC 4.24 L (4.60-5.80) X10*6/uL Hgb 11.8 L (14.0-18.0) g/dl Hct 35.4 L (42.0-52.0) % MCV 83.5 (80.0-98.0) fL MCH 27.8 (27.0-33.0) pg MCHC 33.3 (31.0-36.0) g/dl RDW 14.8 (11.0-16.0) % Plt Count 170 (160-400) X10*3/uL MPV 10.0 (9.4-12.4) fL Immature Gran % (Auto) 0.6 H (0.0-0.4) % Neut % (Auto) 76.4 H (45-73) % Lymph % (Auto) 9.0 L (20-40) % Cache % (Auto) 13.2 H (2-11) % Eos % (Auto) 0.7 (0-4) % Baso % (Auto) 0.1 (0-2) % Lymph # (Auto) 0.7 L (1.2-4.9) X10*3/uL [place] # (Auto) 1.0 (0.1-1.2) X10*3/uL Eos # (Auto) 0.1 (0.0-0.4) X10*3/uL Baso # (Auto) 0.0 (0.0-0.2) X10*3/uL Abs Immat Gran (auto) 0.04 H (0.00-0.03) X10*3/uL Absolute Neuts (auto) 5.5 (2.0-8.3) x10*3/uL Absolute Nucleated RBC 0.000 (0.0-0.012) X10*3/uL Nucleated RBC % (auto) 0.0 (0.0-0.2) /100WBC Sodium 137 (135-145) mmol/L Potassium 4.0 (3.3-5.1) mmol/L Chloride 102 (96-108) mmol/L Carbon Dioxide 23 (22-29) mmol/L Anion Gap 16 (12-20) BUN 18 H (9-16) mg/dL Creatinine 1.57 H (0.5-1.4) mg/dL Estim Creat Clear Calc 53.0 Estimated GFR 46 Random Glucose 109 (60-115) mg/dL Lactic Acid 0.8 (0.5-2.0) mmol/L Calcium 8.7 D (8.4-10.2) mg/dL Total Bilirubin 0.4 (0.0-1.0) mg/dL AST 27 (5-37) U/L ALT 16 (0-40) U/L Alkaline Phosphatase 52 (39-117) U/L Total Creatine Kinase 401 H (38-174) U/L Troponin I High Sens 14.8 (<3.5-35.0) ng/L Total Protein 6.4 L (6.5-8.0) g/dL Albumin 4.1 (3.5-5.0) g/dL Urine Color Yellow Urine Appearance Clear Urine pH 5.0 (5.0-9.0) Ur Specific [place] 1.015 (1.005-1.025) Urine Protein 100 (2+) H (Neg-Trace) mg/dL Urine Glucose (UA) Negative (Negative) mg/dL Urine Ketones Trace (Negative) mg/dL Urine Blood Small (1+) H (Negative) Urine Nitrite Negative (Negative) Ur Leukocyte Esterase Negative (Negative) Urine RBC 0-2 (0-2) /HPF Urine WBC 0-5 (0-5) /HPF Ur Squamous Epith Cells 0-2 (0-2) /HPF Urine Bacteria None Seen (None Seen) Hyaline Casts 0-2 (0-2) /LPF Influenza Type A (PCR) POSITIVE A (Negative) Influenza Type B (PCR) NEGATIVE (Negative) RSV RNA Qual (PCR) NEGATIVE (Negative) SARS-CoV-2 RNA (RT-PCR) NEGATIVE (Negative) Independent Interpretation I performed an independent interpretation of an: EKG Interpretation: EKG was reviewed interpreted by me as normal sinus rhythm [address]-T changes Radiology Impression Discussion of test interpretation with radiology: I have reviewed the radiologist's reading. Radiologist Impression: I reviewed the chest x-ray and interpreted as right middle lobe infiltrate Independent Historian Clinical information obtained from an independent historian. History obtained from or confirmed by: EMS Mother External Record Review External record reviewed: Office record Chronic Conditions Patient?s care impacted by: Diabetes Critical Care Time Critical Care Time Critical Care Time: Yes Total Critical Care Time: 60 Attestation: Hypoxia, IV fluids IV antibiotic Discharge Plan Discharge Clinical Impression: LUNA (acute kidney injury), Multiple falls, Influenza Fever Qualifiers: Fever type: unspecified Qualified Code(s): R50.9 - Fever, unspecified Patient Disposition: Admitted As Inpatient
[2025-09-13] MEDS: cefEPime HCl/D5W 2 GM/50 ML PIGGYBACK IV (06:43)
[2025-09-13 06:46] LABS: MANUAL DIFF FLAG NO
[2025-09-13 06:48] LABS: Hematocrit 35.4 % (42.0-52.0); Hemoglobin 11.8 g/dl (14.0-18.0); Imm Gran Abs Auto 0.04 X10*3/uL (0.00-0.03); Imm Gran Pct Auto 0.6 % (0.0-0.4); Lymphocytes Absolute Auto 0.7 X10*3/uL (1.2-4.9); Mean Corpuscular HGB Conc 33.3 g/dl (31.0-36.0); Mean Corpuscular Hemoglobin 27.8 pg (27.0-33.0); Mean Corpuscular Volume 83.5 fL (80.0-98.0); NRBC Abs Auto 0.000 X10*3/uL (0.0-0.012); NRBC Pct Auto 0.0 /100WBC (0.0-0.2); Platelet Count 170 X10*3/uL (160-400); Red Blood Count 4.24 X10*6/uL (4.60-5.80); White Blood Count 7.2 X10*3/uL (4.8-10.8)
[2025-09-13 07:01] LABS: Alanine Aminotransferase 16 U/L (0-40); Albumin Level 4.1 g/dL (3.5-5.0); Alkaline Phosphatase 52 U/L (39-117); Anion Gap 16 (12-20); Aspartate Amino Transferase 27 U/L (5-37); Blood Urea Nitrogen 18 mg/dL (9-16); Calcium 8.7 mg/dL (8.4-10.2); Carbon Dioxide 23 mmol/L (22-29); Chloride 102 mmol/L (96-108); Creatinine Clr Calc Pharmacy 53.0; Estimated Glomerular Filt Rate 46; Potassium 4.0 mmol/L (3.3-5.1); Sodium 137 mmol/L (135-145); Total Protein 6.4 g/dL (6.5-8.0)
[2025-09-13 07:06] LABS: Troponin-I High Sensitivity 14.8 ng/L (<3.5-35.0)
[2025-09-13 07:24] LABS: Resp Syncy Virus RNA Qual PCR NEGATIVE (Negative); SARS COV2 PCR INHOUSE NEGATIVE (Negative)
[2025-09-13 09:12] LABS: Appearance Urine Clear; Glucose Urine UA Negative (Negative); PH 5.0 (5.0-9.0); Specific Gravity - Urine 1.015 (1.005-1.025); UMIC TRIGGER UACC YES
--- NOTE | 2025-09-13 09:55 | PM.IMHP ---
History of Present Illness Date of Service: 09/13/25 Attending physician on admission: Mine Doe Chief Complaint: Falls This is a 60-year-old male with a history of diabetes, hypertension, hyperlipidemia of the emergency department due to weakness and falls. Patient reports 3 days of malaise, dry cough. Today he felt weak and his legs gave out and he felt more then once. The last time he was unable to stand up and he was brought to the emergency department for evaluation. On arrival to the emergency department patient was noted to be febrile with a temperature of 102.4. He was also noted to be tachycardic and hypoxic. His initial oxygen saturation was 86% on room air, he required 2 L of supplemental oxygen to bring his oxygen levels to the mid 90s. Creatinine was elevated at 1.57, total creatinine kinase 401. He tested positive for influenza A. Chest x-ray showed no acute abnormality. He was treated with IVF, tamiflu and IV doxycycline and will be admitted for further mangement. Review of Systems Review of Systems: Yes all other systems are reviewed and are negative Constitutional: Constitutional: Denies chills, Reports fever(s), Reports malaise and Reports weakness Cardiovascular: Cardiovascular: Denies chest pain, Denies palpitations and Denies dyspnea Respiratory: Respiratory: Reports cough and Denies dyspnea Gastrointestinal: Gastrointestinal: Denies abdominal pain and Denies vomiting Neurologic: Reports weakness Endocrine: Endocrine: Denies palpitations [facility] Family History Father Alcoholism Surgical History History of surgery on arm Social History Housing: House Alcohol intake: current Alcohol intake frequency: holidays/special occasions only Patient Tobacco Use Status: Never used Tobacco Smoked in Last 30 Days: No e-Cigarette/Vaping Use: Never Used Second Hand Smoke Exposure: No Use of substances other than those prescribed or required for medical reasons: No Advance Directives: Yes Advance Directives Information Provided: Yes Advance Directives on File: No Do you have a plan to hurt others: No Plan service: No Current occupational status: disabled Cognitive needs: No Hearing needs: No Vision needs: Yes (Glasses) Meds Allergies Allergy/AdvReac Type Severity Reaction Status Date / Time No Known Allergies Allergy Verified 09/13/25 06:15 Active Medications: Current Medications Doxycycline Hyclate 100 mg/ (Sodium Chloride) 250 mls @ 166.67 mls/hr IV ONCE ONE Stop: 09/13/25 10:32 Last Admin: 09/13/25 09:23 Dose: 166.67 mls/hr Home Medications ?Medication ?Instructions ?Recorded ?Confirmed ?Last Taken ?Type blood-glucose meter (BeneChillTouch #1 ea 11/13/24 06/16/25 Unknown History Ultra2 Meter) clotrimazole 1 % topical cream 1 appl topical DAILY 11/13/24 09/13/25 09/13/25 History lovastatin 10 mg tablet 10 mg PO DAILY 11/13/24 09/13/25 09/13/25 History metformin 1,000 mg tablet 1,000 mg PO BID 11/13/24 09/13/25 09/13/25 History aspirin 81 mg tablet 81 mg PO DAILY 04/08/25 09/13/25 09/13/25 History Physical Exam Vital Signs and Narrative: Vital Signs: Last Vital Signs Temp 98.1 F 09/13/25 07:46 Pulse 89 09/13/25 08:06 Resp 14 09/13/25 08:06 BP 116/71 09/13/25 08:06 Pulse Ox 96 09/13/25 08:05 O2 Del Method Nasal Cannula 09/13/25 08:05 O2 Flow Rate 2 09/13/25 08:05 BMI result Body Mass Index 33.3 Const: General: cooperative, alert and awake Nutritional Appearance: overweight Orientation/consciousness: patient oriented x3 Resp: Other: scattered wheeze; no rales Effort & Inspection: normal respiratory effort, able to speak in complete sentences, no respiratory distress and no use of accessory muscles Cardio: Rate: regular rate GI: Inspection: No distended Palpation (GI): Soft to palpation and nontender Neuro: General: patient oriented x3, moves all extremities and CN's II-XI intact bilaterally Results Labs 09/13/25 06:28 09/13/25 06:28 Labs: Laboratory Results - last 24 hr 09/13/25 09/13/25 06:28 09:04 MCV 83.5 MCH 27.8 MCHC 33.3 RDW 14.8 Plt Count 170 MPV 10.0 Immature Gran % (Auto) 0.6 H Neut % (Auto) 76.4 H Lymph % (Auto) 9.0 L Piatt % (Auto) 13.2 H Eos % (Auto) 0.7 Baso % (Auto) 0.1 Lymph # (Auto) 0.7 L Piatt # (Auto) 1.0 Eos # (Auto) 0.1 Baso # (Auto) 0.0 Abs Immat Gran (auto) 0.04 H Absolute Neuts (auto) 5.5 Absolute Nucleated RBC 0.000 Nucleated RBC % (auto) 0.0 Anion Gap 16 Estim Creat Clear Calc 53.0 Estimated GFR 46 Random Glucose 109 Lactic Acid 0.8 Calcium 8.7 D Total Bilirubin 0.4 AST 27 ALT 16 Alkaline Phosphatase 52 Total Creatine Kinase 401 H Troponin I High Sens 14.8 Total Protein 6.4 L Albumin 4.1 Urine Color Yellow Urine Appearance Clear Urine pH 5.0 Ur Specific [place] 1.015 Urine Protein 100 (2+) H Urine Glucose (UA) Negative Urine Ketones Trace Urine Blood Small (1+) H Urine Nitrite Negative Ur Leukocyte Esterase Negative Urine RBC 0-2 Urine WBC 0-5 Ur Squamous Epith Cells 0-2 Urine Bacteria None Seen Hyaline Casts 0-2 Influenza Type A (PCR) POSITIVE A Influenza Type B (PCR) NEGATIVE RSV RNA Qual (PCR) NEGATIVE SARS-CoV-2 RNA (RT-PCR) NEGATIVE Assessment and Plan (1) Influenza: Status: Acute Plan This is a 60 year old male with a history of DM, HTN, HLD who presented to the ED with weakness and fever found to have hypoxia and influenza A. Acute hypoxic respiratory failure and viral sepsis to acute influenza a infection Renally dosed tamiflu supplemental oxygen as needed supportive care Blood cultures pending LUNA on CKD3 likley due to dehydration due to above IVF hold lisinopril follow BMP Mechanical Fall likely due to above may need PT eval prior to d/c Daily etoh use drink two hard seltzers daily no h/o withdrawal, low risk for withdrawal follow CIWA DM hold glipizide, metformin, semaglutide SSI, POCs, ADA diet HLD continue statin HTN hold lisinopril for LUNA BPH continue flomax DVT ppx - lovenox patient will likely require two midnight stay in the hospital for management of Quality Stroke Does the patient have a stroke diagnosis?: No VTE Prior VTE?: No VTE Risk Level:: Medical - moderate - high VTE Device Contraindication: Treatment Not Indicated VTE Drug Contraindication: N/A - Med Ordered
[2025-09-13] MEDS: Lactated Ringers 1,000 ML 100 ML IVCONT ×2 (10:59→21:08)
--- NOTE | 2025-09-13 11:03 | HO.NURTONUR ---
60 yr old male admitted for Influenza A Pt comes to ED for increased falls at home--lives with mother. On arrival to ED, noted to be tachycardic and febrile with an 86% on RA. 2L supplemental O2 initiated via NC with good result. PO Tylenol given with good result. (+) swab for Influenza A--precautions initiated. Tamiflu given. Pt noted to have diarrhea in ED--imodium offered, Pt declines. A&Ox3 VSS 20g LFA LR @ 100ml/hr. Intermittent cough noted, non-productive. Urinal and bedpan use Pt resting quielty without distress. Awaiting inpatient bed assignment.
--- NOTE | 2025-09-13 11:23 | PHA.MEDREC ---
Pharmacy Consult ? Medication Reconciliation Pharmacy has completed the medication reconciliation. Spoke to patient to confirm medication list. Also called and spoke to patient's mother who confirmed patient is not taking prednisone anymore. Last dose of medications was this morning 09/13/25.
[2025-09-13] MEDS: guaiFENesin DM 100/10/5 ML 5 ML SYRUP PO ×2 (12:54→21:08)
[2025-09-13] MEDS: 0.9 % Sodium Chloride Flush 3 ML SYRINGE IVFLUSH (12:54)
[2025-09-13 13:11] LABS: Glucose, Whole Blood 91 mg/dL (60-115)
[2025-09-13 16:34] LABS: Glucose, Whole Blood 198 mg/dL (60-115)
[2025-09-13 21:08] LABS: Glucose, Whole Blood 93 mg/dL (60-115)
[2025-09-14 03:09] VITALS: BP 142/82; PULSE 91; RESP 20; TEMP 36; O2SAT 93
[2025-09-14] MEDS: Lactated Ringers 1,000 ML 100 ML IVCONT (05:44)
[2025-09-14 07:13] LABS: Anion Gap 13 (12-20); Blood Urea Nitrogen 16 mg/dL (9-16); Calcium 8.3 mg/dL (8.4-10.2); Carbon Dioxide 25 mmol/L (22-29); Chloride 104 mmol/L (96-108); Creatinine Clr Calc Pharmacy 69.4; Estimated Glomerular Filt Rate > 60; Potassium 4.0 mmol/L (3.3-5.1); Sodium 138 mmol/L (135-145)
[2025-09-14 08:00] VITALS: BP 144/83; PULSE 89; RESP 12; TEMP 36.6; O2SAT 92
[2025-09-14 08:38] LABS: Glucose, Whole Blood 129 mg/dL (60-115)
[2025-09-14] MEDS: guaiFENesin DM 100/10/5 ML 5 ML SYRUP PO (08:50)
[2025-09-14] MEDS: Aspirin Enteric Coated 81 MG TABLET.DR PO (08:50)
[2025-09-14] MEDS: 0.9 % Sodium Chloride Flush 3 ML SYRINGE IVFLUSH (08:54)
[2025-09-14 11:28] VITALS: O2SAT 94
[2025-09-14 11:29] LABS: Glucose, Whole Blood 235 mg/dL (60-115)
[2025-09-14] MEDS: Clotrimazole 1 % Cream 15 GM TUBE 1 APPL TOPICAL (11:36)
--- NOTE | 2025-09-14 13:32 | PM.DS ---
DS: Providers Provider Date of Service: 09/14/25 Date of admission: 09/13/25 09:55 Date of discharge: 09/14/25 Primary care physician: Jairo Castro PA-C Consults: 09/14/25 01:17 Consult to Wound Care Routine Consulting Provider: [facility] [place] [facility] Wound Care Management Reason for consultation: redness to buttocks DS: Diagnosis Discharge Diagnosis (1) Influenza: Status: Acute DS: Summary Hospital Course Hospital Course: From admission HPI: Date of Service: 09/13/25 Attending physician on admission: Mine Doe Chief Complaint: Falls This is a 60-year-old male with a history of diabetes, hypertension, hyperlipidemia of the emergency department due to weakness and falls. Patient reports 3 days of malaise, dry cough. Today he felt weak and his legs gave out and he felt more then once. The last time he was unable to stand up and he was brought to the emergency department for evaluation. On arrival to the emergency department patient was noted to be febrile with a temperature of 102.4. He was also noted to be tachycardic and hypoxic. His initial oxygen saturation was 86% on room air, he required 2 L of supplemental oxygen to bring his oxygen levels to the mid 90s. Creatinine was elevated at 1.57, total creatinine kinase 401. He tested positive for influenza A. Chest x-ray showed no acute abnormality. He was treated with IVF, tamiflu and IV doxycycline and will be admitted for further mangement. Hospital course Pt was admitted to the hospital for acute hypoxic respiratory failure in the setting of acute influenza type a infection. Pt was initially treated Tamiflu and with supplemental oxygen, which he was slowly weaned off of. Pt initially presented with a fever, but has been afebrile for over 24 hours. Labs also showed pt had an LUNA likely secondary to dehydration from reduced p.o. intake in the setting of influenza type a infection. Pt was treated with IVF and labs earlier today showed creatinine normalized. Pt also had had multiple falls at home over the past few days, again in the setting of acute influenza type a infection. This morning pt reported feeling back to baseline after Tamiflu and IVF; was ambulated by staff in the hallways multiple times without any difficulty walking, SOB, or ataxia. Pt was also walked in front of his mother with whom he lives; as pt's walking was back to baseline, they both felt comfortable with being discharged home today, especially as pt has follow up with PCP on Monday. Pt will be discharged home on Tamiflu 750 mg b.i.d. x3 days. He should resume all of his other home medications. Time Attestation Discharge Coordination Time (in mins): 35 Quality: Safe Use of Opioids Does Pt have an Active Cancer Diagnosis on the Problem List?: No Quality: Stroke Does the patient have a stroke diagnosis?: No Physical Exam Exam: Exam: General: AOx3, no acute distress Resp: CTA bilaterally CVS: S1, S2, RRR GI: +BS, NT, no distention Skin: Warm, dry Neuro: Cranial nerves II-XII grossly intact bilaterally. Motor grossly intact bilaterally Extremities: No edema Psych: Appropriate affect Vital Signs: Vital Signs: Last Vital Signs Temp 97.9 F 09/14/25 08:00 Pulse 89 09/14/25 08:00 Resp 12 09/14/25 08:00 BP 144/83 H 09/14/25 08:00 Pulse Ox 94 09/14/25 11:28 O2 Del Method Room Air 09/14/25 11:28 O2 Flow Rate 2 09/13/25 10:42 BMI result Body Mass Index 33.3 DS: Data Data Completed and Pending Labs on day of discharge: Laboratory Results - last 24 hr 09/13/25 09/13/25 09/14/25 16:23 21:05 06:08 Sodium 138 Potassium 4.0 Chloride 104 Carbon Dioxide 25 Anion Gap 13 BUN 16 Creatinine 1.20 Estim Creat Clear Calc 69.4 Estimated GFR > 60 POC Glucose 198 H 93 Random Glucose 117 H Calcium 8.3 L 09/14/25 09/14/25 07:44 11:21 Sodium Potassium Chloride Carbon Dioxide Anion Gap BUN Creatinine Estim Creat Clear Calc Estimated GFR POC Glucose 129 H 235 H Random Glucose Calcium Preliminary micro results at discharge 09/13/25 06:28 Blood Culture - Preliminary Blood - Venous No growth after 24 hours. 09/13/25 06:28 Blood Culture - Preliminary Blood - Venous No growth after 24 hours. Discharge Plan Discharge Anticipated Discharge Date/Time: 09/14/25 13:18 Patient Disposition: Home, Self-Care Discharge Diagnosis: Acute hypoxic respiratory failure and viral sepsis secondary to acute influenza a infection Referrals: Jairo Castro PA-C [Primary Care Provider, Internal Medicine] - 1 Week Discharge Medications: New oseltamivir [Tamiflu] 75 mg capsule 75 mg PO BID 3 Days Qty: 7 0RF Rx Instructions: Take one tablet twice a day, starting the evening of 09/14 and ending the evening of 09/17. Continued (DME) OneTouch Ultra Test Strip See Rx Instructions .ROUTE .MEDSUPPLY Qty: 100 3RF Rx Instructions: once daily Rybelsus 7 mg tablet 7 mg PO DAILY Qty: 90 3RF naproxen 500 mg tablet 500 mg PO BID PRN (Reason: pain) 90 Days Qty: 180 1RF lisinopril 20 mg tablet 20 mg PO DAILY Qty: 90 1RF (DME) lancets [OneTouch Delica Plus Lancet] 33 gauge misc See Rx Instructions .ROUTE TID Qty: 100 3RF Rx Instructions: As directed (DME) Easy Touch Safety Lancets 32 gauge misc See Rx Instructions .Route Qty: 100 3RF Rx Instructions: once daily (DME) blood-glucose meter [Contour Meter] Kit See Rx Instructions .Route Qty: 1 0RF Rx Instructions: Contour Plus blue meter LOREN scopolamine base 1 mg over 3 days patch 3 day 1 patch transdermal Q3D PRN (Reason: motion sickness) Qty: 10 1RF (DME) Contour Plus Test Strip Strip See Rx Instructions .Route Qty: 300 3RF Rx Instructions: three times daily glipizide 10 mg tablet extended release 24hr 20 mg PO DAILY Qty: 180 3RF aspirin 81 mg tablet 81 mg PO DAILY clotrimazole 1 % cream 1 appl topical DAILY Rx Instructions: APPLY TO FEET lovastatin 10 mg tablet 10 mg PO DAILY (DME) blood-glucose meter [OneTouch Ultra2 Meter] Misc See Rx Instructions .ROUTE DIRECTED Qty: 1 Rx Instructions: As directed metformin 1,000 mg tablet 1,000 mg PO BID tamsulosin 0.4 mg capsule 0.4 mg PO BEDTIME Qty: 90 3RF Discharge Orders: Discharge Order (Routine); Ordered 09/14/25 Ordered By: Chato Miller Activity on Discharge: As tolerated Stand Alone Forms: Patient Portal Discharge page Print Language: Persian Care Plan Goals: See below Health Concerns: Acute hypoxic respiratory failure Acute influenza a infection Acute kidney injury Plan of Treatment: You were admitted to the hospital for acute hypoxic respiratory failure in the setting of influenza type a infection. You were treated with Tamiflu and eventually weaned off of supplemental oxygen. You have been fever-free for over 24 hours. You were also noted to have an acute kidney injury likely due to dehydration, and and were given IV fluids. You also had come in after falling multiple times at home, likely due to fever and weakness secondary to influenza infection. You felt much better after IV fluids and Tamiflu, and were walked in the hallway multiple times by staff. You no longer felt weak, had difficulty walking, or felt unbalanced, and your now ready to be discharged home with follow up with your PCP on Monday for your previously scheduled appointment. -- take Tamiflu 75 mg twice a day for the next 3 days, starting the evening of 09/14 and ending the evening of 09/17 -- take over the counter cough drops or syrup for cough -- drink plenty of fluids -- resume all of your other home meds Assessment: See discharge summary
--- NOTE | 2025-09-14 13:59 | MHC.CM.PN ---
Patient medically cleared for dc home self care via private transport prior to CM assessment.
== END 2025-09-14 14:31 | disposition home or self-care (01) | DRG 871 ==
LOC: HO.ED 07:20 → HO.EDOVER 10:01 → HO.S3 11:32
PROVIDERS: Student in an Organized Health Care Education/Training Program; Admitting Provider Physician Assistant Medical; Emergency Provider Emergency Medicine; PCP Physician Assistant; Visit Provider Student in an Organized Health Care Education/Training Program
DX: A41.89 Other specified sepsis (principal); J96.01 Acute respiratory failure with hypoxia; N17.9 Acute kidney failure, unspecified; I12.9 Hypertensive chronic kidney disease with stage 1 through stage 4 chronic kidney disease, or unspecified chronic kidney disease; N18.30 Chronic kidney disease, stage 3 unspecified; E78.5 Hyperlipidemia, unspecified; J10.1 Influenza due to other identified influenza virus with other respiratory manifestations; E11.22 Type 2 diabetes mellitus with diabetic chronic kidney disease; R29.6 Repeated falls; Z79.82 Long term (current) use of aspirin; Z79.84 Long term (current) use of oral hypoglycemic drugs; Z79.899 Other long term (current) drug therapy
CPT/HCPCS: 36415; 70450; 71045; 72125; 80048; 80053; 81001; 82550; 82947; 83605; 84484; 85025; 87040; 87637; 93005; 99285; J0692; J1271; J1650; J7120

== ENCOUNTER → 2025-09-13 06:11 | Outpatient (BNV) | payer MEDICARE, MEDICAID, SELFPAY | PROVIDERS: Admitting Provider Physician Assistant Medical; Emergency Provider Emergency Medicine; PCP Physician Assistant; Visit Provider Internal Medicine Cardiovascular Disease | DX: R00.0 Tachycardia, unspecified (principal) | CPT/HCPCS: 93010 ==

== ENCOUNTER → 2025-09-13 06:11 | Outpatient (BNV) | payer MEDICARE, MEDICAID, SELFPAY | PROVIDERS: Emergency Provider Emergency Medicine; PCP Physician Assistant; Visit Provider Radiology Vascular & Interventional Radiology | DX: R07.9 Chest pain, unspecified (principal); R29.6 Repeated falls | CPT/HCPCS: 70450; 71045; 72125 ==

== ENCOUNTER → 2025-09-13 09:55 | Outpatient (BNV) | payer MEDICARE, MEDICAID, SELFPAY | PROVIDERS: Admitting Provider Physician Assistant Medical; Emergency Provider Emergency Medicine; PCP Physician Assistant; Visit Provider Physician Assistant Medical | DX: J11.1 Influenza due to unidentified influenza virus with other respiratory manifestations (principal) | CPT/HCPCS: 99223 ==

== ENCOUNTER 2025-09-16 11:31 | Outpatient (AMB) | payer MEDICARE, MEDICAID, SELFPAY ==
--- NOTE | 2025-09-16 11:36 | MHC.PC.OV ---
Vital Signs 09/16/25 11:37 Height 5 ft 5 in Weight 191 lb 8 oz BMI 31.9 BP 130/82 Blood Pressure Location Lt brachial Position Sitting Pulse 69 Pulse Source Pulse Oximeter Temp 97.3 F Temp Source Temporal Artery Scan Pulse Oximetry (%) 98 Oxygen Delivery Method Room Air Intake Visit Reasons: [facility] 09/09 general medical Intake Note: Patient is here for hospital discharge follow up. Patient was discharged from [facility] on 09/09/25. 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 Required: No Preschool Program Director: Not Required per policy Accompanied by: Self / Same As Patient Allergies No Known Allergies Allergy (Verified 09/16/25 11:47) Medication List - Last Reconciled 09/16/25 by Jairo Castro PA-C aspirin 81 mg PO DAILY blood-glucose meter (buildabrandTouch Ultra2 Meter) As directed clotrimazole 1% 1 appl topical DAILY Contour Meter (blood-glucose meter) Contour Plus blue meter LOREN NS Contour Plus Test Strip (blood sugar diagnostic) three times daily NS glipizide ER 20 mg (2 x 10 mg) PO DAILY lancets (OneTouch Delica Plus Lancet) As directed lancets (Easy Touch Safety Lancets) once daily lisinopril 20 mg PO DAILY lovastatin 10 mg PO DAILY metformin 1,000 mg PO BID naproxen 500 mg PO BID PRN 90 days OneTouch Ultra Test (blood sugar diagnostic) once daily NS oseltamivir (Tamiflu) 75 mg PO BID 3 days scopolamine base 1 patch transdermal Q3D PRN semaglutide (Rybelsus) 7 mg PO DAILY tamsulosin 0.4 mg PO BEDTIME Tobacco use date assessed: 09/16/25 Dental Screening Dental Screen Date: 12/05/24 HPI [facility] 09/09 general medical HPI Details Patient is a 59 year male here today for for hospital discharge follow up. Patient discharged on 09/14/2025 Patient has a past medical history significant for type 2 diabetes, CKD-3 hypertension, obesity and developmental delay. Patient here today for hospital discharge follow up. He was seen at the hospital last week for acute hypoxic respiratory failure in the setting of influenza infection. His signs and symptoms of the flu infection were weakness and frequent falling. He was treated with Tamiflu While at the hospital he was noted to have an acute kidney injury was treated with IV fluids. After being treated IV fluids and Tamiflu we felt back to normal. He also is reporting a few week history of right elbow and forearm pain and swelling. Has been using naproxen with a bit of relief. Laboratory Tests 08/16/25 09/09/25 09/13/25 16:52 11:33 06:28 Hgb 12.2 L 12.6 L 11.8 L Creatinine 1.57 H POC Glucose Influenza Type A ( PCR) POSITIVE A 09/14/25 09/14/25 06:08 11:21 Hgb Creatinine 1.20 POC Glucose 235 H Influenza Type A ( PCR) TCM TCM Information Date of Discharge 09/14/25 Discharged From [facility] Surgical History History of surgery on arm Family History Father Alcoholism Social History Household Members: Other Household Members Other:: mother Housing: House Do you presently have visiting nurse or other home services: No Alcohol intake: current Alcohol intake frequency: holidays/special occasions only Patient Tobacco Use Status: Never used Tobacco e-Cigarette/Vaping Use: Never Used Second Hand Smoke Exposure: No Advance Directives Date on File: 09/13/25 service: No Current occupational status: disabled Cognitive needs: No Hearing needs: No Vision needs: Yes (Glasses) Questionnaire Thrive Questionnaire Date Thrive assessed: 12/05/24 I am a: Patient What is your living situation today?: I have a steady place to live Within the past 12 months, did the food you bought not last and you didn't have the money to get more?: I choose not to answer this question Within the past 12 months, did you worry whether your food would run out before you got money to buy more?: I choose not to answer this question Do you have trouble paying for medicines?: No Do you have trouble getting transportation to medical appointments?: No Do you have trouble paying your heating and electricity bill?: No Do you have trouble taking care of your child, family member or friend?: No Do you have trouble with day-to-day activities such as bathing, preparing meals, shopping, managing finances, etc.?: No Are you currently unemployed and looking for a job?: No Are you interested in more education?: No Please select the resources that you would like help with: None Currently or been in a relationship where the following occur: I choose not to answer THRIVE Score: 0 CRIS-7 AMB Questionnaire CRIS-7 Date CRIS - 7 assessed: 12/05/24 Source: Developed by Drs. Rah Dumont, Delma Angel, Jose Angel Syed and colleagues, with an educational tiffanie from [employer]. Review of Systems Const Denies headache(s) Eyes Denies loss of vision ENT Denies vertigo, Denies dizziness, Denies headache(s) and Denies sore throat Card Denies chest pain, Denies leg edema and Denies lightheadedness Resp Denies cough, Denies hemoptysis and Denies wheezing GI Denies abdominal pain, Denies melena, Denies constipation, Denies diarrhea and Denies vomiting Denies dysuria, Denies urinary frequency and Denies urinary urgency Musc Denies arthralgias, Denies joint swelling, Denies numbness and Denies tingling Neuro Denies Abnormal speech present, Denies behavioral changes, Denies vertigo, Denies dizziness, Denies headache(s), Denies loss of vision, Denies memory loss, Denies numbness and Denies tingling Psych Denies anxiety, Denies behavioral changes, Denies depression, Denies memory loss and Denies panic attacks Hollis/Lymph Denies easy bleeding and Denies easy bruising Aller/Immun Denies wheezing Physical exam (Primary Care) Vital Signs: Last Vital Signs Temp 97.3 F 09/16/25 11:37 Pulse 69 09/16/25 11:37 BP 130/82 09/16/25 11:37 Pulse Ox 98 09/16/25 11:37 Oxygen Delivery Method Room Air 09/16/25 11:37 BMI result Body Mass Index 31.9 Tobacco/Smoking Status: Tobacco use Status Tobacco use date assessed 09/16/25 09/16/25 11:43 Patient Tobacco Use Status Never used Tobacco 09/16/25 11:43 e-Cigarette/Vaping Use Never Used 09/16/25 11:43 Thrive Assessment: Date of Thrive Assessment Date Thrive assessed 12/05/24 09/16/25 11:43 Currently or been in a relationship where the following occur: I choose not to answer Const General: healthy appearing, no acute distress, alert and awake Nutritional Appearance: well nourished Orientation/consciousness: oriented to person, oriented to place and oriented to time HENMT Ears: TM's normal bilaterally General nose exam: Normal nasal mucous membranes and turbinates present Eyes Conjunctivae: conjunctivae normal Sclerae: sclerae normal Pupils: Equal, round and reactive pupils present Neck Neck: Yes no lymphadenopathy and Yes no JVD Thyroid: Thyroid normal Carotids: no bruits Resp Effort & Inspection: normal respiratory effort and not tachypneic Auscultation: no crackles, no rales, no rhonchi and no wheezes Cardio Rate: regular rate Rhythm: regular rhythm Heart sounds: no murmurs and normal S1 and S2 GI Palpation (GI): Soft to palpation, nontender, no hepatomegaly and no splenomegaly Auscultation: normal bowel sounds Skin General skin exam: no rashes or lesions noted and dry skin Neuro General: oriented to person, oriented to place and oriented to time Cranial nerves: Yes Equal, round and reactive pupils present Speech: No Abnormal speech present Gait exam (Neuro): Normal gait present Motor exam (neuro): no tremor noted Extrem Right upper extremity: full ROM Left upper extremity: full ROM Elbow/forearm/wrist images:  1. PAIN LOCATED IN THE AREA OUTLINED Right lower extremity: full ROM; no edema Left lower extremity: full ROM; no edema Psych Mental Status: mental status grossly normal Speech and movement: Normal speech and movement present Affect: normal affect Attitude: cooperative Thought process: Normal thought process present Coding Level of Care Code TCM Mod MDM <= 7 Days Diagnoses Hospital discharge follow-up Z09 Influenza A J10.1 Forearm tendonitis M77.8 Assessment & Plan Assessment & Plan (1) Hospital discharge follow-up: Code(s): Z09 - Encounter for follow-up examination after completed treatment for conditions other than malignant neoplasm Category: Medical Plan: As per HPI (2) Influenza A: Code(s): J10.1 - Influenza due to other identified influenza virus with other respiratory manifestations Category: Medical Plan: Patient's seems to have made a full recovery from his acute influenza viral infection. He reports his strength is better in his balance is much better. Has not had any falls since being back home from the hospital. He is not interested in physical therapy to help regain his lower extremity strength. (3) Forearm tendonitis: Code(s): M77.8 - Other enthesopathies, not elsewhere classified Category: Medical Plan: Patient's signs and symptoms most consistent with a lateral epicondylitis. We did discuss perhaps using cool compress and an upper extremity compression sleeve. He is somewhat interested in a cortisone injection though he would like to hold off on this and continue conservative management. Medications: New acetaminophen ER (Tylenol Arthritis Pain) 650 mg PO Q12H 60 tabs 1RF 30 days M19.90 - Unspecified osteoarthritis, unspecified site, M77.8 - Other enthesopathies, not elsewhere classified Changed From naproxen 500 mg PO BID 90 days PRN 180 tabs 1RF pain To naproxen 500 mg PO BID PRN 60 tabs 1RF pain 30 days
[2025-09-16 11:37] VITALS: BP 130/82; PULSE 69; TEMP 36.3; O2SAT 98; BMI 31.9
--- OUTSIDE RECORDS SUMMARY | 2025-09-17 02:34 | XMS_ITS | Clinical Summary ---
Author Organization [facility] [address] [place] [address] [place] [phone] Phone Care Team Providers Care Financial Brokers Name Role Phone Kenny Osullivan MD Primary Care Provider [phone] Allergies No known active allergies Medications naproxen [...] retinopathy, without long-term current use of insulin ([facility] V24, [facility] V28) 02/17/2023 Microalbuminuria 02/17/2023 Diabetes mellitus due to und erlying condition with stage 3 chronic kidney disease, without long-term current use of insulin ([facility] V24, [facility] V28) 02/17/2023 Type 2 diabetes mellitus wit h microalbuminuria, without long-term current use of insulin ([facility] V24, [facility] V28) 02/17/2023 Stage 3a chronic kidney disease ([facility] V24, [facility] V28) 04/22/2022 Known medical problems 07/29/2014 Overview (09/16/2024): DM (diabetes mellitus), type 2, uncontrolled, with renal complications 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) ([facility] V24, [facility] V28) 07/02/2014 Exotropia, left eye 07/02/2014 Glaucoma [...] Results * Urine Albumin Creatinine Ratio (08/28/2024) [facility] Urine Albumin Creatinine Ratio abstracted Result [facility] HEALTH MAINTENANCE Final Result * Annual BMP Blood Test (08/28/2024) [facility] Annual BMP Blood Test abstracted Result [facility] Provider HEALTH MAINTENANCE Final Result * (ABNORMAL) Hemoglobin A1c (08/28/2024) [facility] Hemoglobin A1C 7.2(A) <=6.5 % Blood Venous blood specimen / Unknown Result [facility] Provider LAB BLOOD ORDERABLES Mariam l Result * Lipid panel (08/28/2024) [facility] LDL/HDL Ratio 3 0 - 4 Triglycerides 59 0 - 150 mg/dL Cholesterol 159 0 - 200 mg/dL HDL 60 >=40 mg/dL LDL Cholesterol 88 0 - 100 mg/dL Blood Venous blood specimen / Unknown Result [facility] Provider LAB BLOOD ORDERABLES Mariam l Result * Colonoscopy (08/01/2023) [facility] Colonoscopy no interpretation , abstracted Anatomical Region Laterality Modality Other [facility] HEALTH MAINTENANCE Final Result * Hepatitis C Screening (02/17/2023) [facility] Hepatitis C Screening abstracted us Historical Provider HEALTH MAINTENANCE Final Result from Last 3 Months or Most Recently Relevant to Health Maintenance Insurance [employer] MEDICARE [place]ID [place] Care Teams Financial Brokers Relationship Specialty Start Date End Date Kenny Osullivan MD [address] [place] [phone] PCP - General 04/05/06
== END 2025-09-16 12:07 | disposition home or self-care (01) ==
LOC: HO.HMCH 11:33
PROVIDERS: PCP Physician Assistant; Visit Provider Physician Assistant
DX: J10.1 Influenza due to other identified influenza virus with other respiratory manifestations (principal); Z09 Encounter for follow-up examination after completed treatment for conditions other than malignant neoplasm; M77.8 Other enthesopathies, not elsewhere classified

== ENCOUNTER → 2025-09-16 11:31 | Outpatient (BNVA) | payer MEDICARE, MEDICAID, SELFPAY | PROVIDERS: PCP Physician Assistant; Visit Provider Physician Assistant | DX: E11.22 Type 2 diabetes mellitus with diabetic chronic kidney disease (principal); N18.30 Chronic kidney disease, stage 3 unspecified; J10.1 Influenza due to other identified influenza virus with other respiratory manifestations; M77.8 Other enthesopathies, not elsewhere classified; M19.90 Unspecified osteoarthritis, unspecified site; Z09 Encounter for follow-up examination after completed treatment for conditions other than malignant neoplasm | CPT/HCPCS: 99495 ==